=== PATIENT | male | born 1950 | race Asian ===

== ENCOUNTER 2020-10-28 13:23 | Outpatient (REF) | payer OTHER, SELFPAY ==
[2020-10-28 14:31] LABS: Hematocrit 46.4 % (42-52); Hemoglobin 15.5 g/dl (14.0-18.0); Mean Corpuscular HGB Conc 33.4 g/dl (31.0-36.0); Mean Corpuscular Hemoglobin 26.5 pg (27.0-33.0); Mean Corpuscular Volume 79.3 fL (80-98); Mean Platelet Volume 11.2 fL (9.4-12.4); Platelet Count 245 X10*3/uL (160-400); Red Blood Count 5.85 X10*6/uL (4.60-5.80); Red Cell Distribution Width 15.3 % (11.0-16.0)
[2020-10-28 15:02] LABS: Alanine Aminotransferase 20 U/L (0-40); Albumin Level 4.4 g/dL (3.5-5.0); Alkaline Phosphatase 133 U/L (39-117); Anion Gap 11 (12-20); Aspartate Amino Transferase 26 U/L (5-37); Bilirubin Direct 0.3 mg/dL (0.0-0.5); Bilirubin Total 0.6 mg/dL (0.0-1.0); Blood Urea Nitrogen 14 mg/dL (9-16); Calcium 9.2 mg/dL (8.4-10.2); Carbon Dioxide 27 mmol/L (22-29); Chloride 108 mmol/L (96-108); Cholesterol 176 mg/dL; Estimated Glomerular Filt Rate > 60; Glucose Random 85 mg/dL (60-115); HDL Cholesterol 46 mg/dL; LDL Cholesterol Calculated 103 mg/dl; Potassium 4.4 mmol/L (3.3-5.1); Sodium 142 mmol/L (135-145); Total Protein 7.3 g/dL (6.5-8.0); Triglycerides 135 mg/dL
[2020-10-28 15:22] LABS: Thyroid Stimulating Hormone 2.91 uIU/mL (0.32-4.0)
== END 2020-10-28 13:24 | disposition home or self-care (01) ==
LOC: HO.LAB 13:23
PROVIDERS: Visit Provider Internal Medicine
DX: E78.00 Pure hypercholesterolemia, unspecified (principal)
CPT/HCPCS: 36415; 80048; 80061; 80076; 84443; 85027

== ENCOUNTER 2020-11-06 20:50 | Emergency (ER) | payer OTHER, SELFPAY ==
--- NOTE | ~2020-11-06 | CT_ITS ---
EXAMINATION: CT ABDOMEN AND PELVIS WITHOUT CONTRAST CLINICAL INFORMATION: Elevated alkaline phosphatase with history of BPH. COMPARISON: None TECHNIQUE: Multidetector volumetric imaging was performed from the superior aspect of the liver through the pubic symphysis. Sagittal and coronal reformatted images were obtained on the technologist's workstation. This CT examination was performed using dose optimization techniques as appropriate, variously including the following: *Automated exposure control. *Adjustment of mA and/or kV according to patient size (this includes techniques or standardized protocols for targeted exams where dose is matched to indication/reason for exam; i.e. extremities or head). *Use of iterative reconstruction technique. DLP: 639 mGy-cm FINDINGS: LUNG BASES: The visualized lung bases are unremarkable. LIVER, GALLBLADDER, AND BILIARY TREE: The liver is normal in size, shape, and attenuation. No focal hepatic lesion or biliary ductal dilatation is present. The gallbladder contains multiple layering high density stones but is otherwise unremarkable with no evidence of wall thickening or obvious pericholecystic inflammatory changes. PANCREAS: Unremarkable. SPLEEN: Unremarkable. ADRENAL GLANDS: Unremarkable. KIDNEYS AND URETERS: The kidneys are normal in size, shape, and attenuation. No hydronephrosis, hydroureter, or calculi seen. Bilateral water density benign simple renal cysts are noted with the largest at the lower poles measuring about 3 cm in size bilaterally. No perinephric stranding. BLADDER: Unremarkable. GASTROINTESTINAL TRACT: Diverticular changes are present in the colon, most marked in the sigmoid and distal transverse and proximal descending colon, but there is no evidence to suggest the presence of diverticulitis. The distal ileum demonstrates fecalization. The small and large bowel are otherwise unremarkable. The appendix is not identified but there is no evidence to suggest appendicitis. ABDOMINAL WALL: No significant hernia is appreciated. LYMPH NODES: Normal. VASCULAR: Unremarkable. PELVIC VISCERA: Prostate is enlarged measuring 5.6 x 4.0 x 4.6 cm. The seminal vesicles appear normal. OSSEOUS STRUCTURES: Unremarkable. CT/CT abdomen pelvis wo con IMPRESSION: 1. Cholelithiasis without evidence of cholecystitis. 2. Bilateral renal cysts. 3. Colonic diverticulosis without diverticulitis. 4. BPH.
[2020-11-06 20:57] VITALS: BP 157/85; PULSE 68; RESP 16; TEMP 36.4; O2SAT 99; BMI 28.0
[2020-11-06 21:17] LABS: Basophils Percent Auto 0.5 % (0-2); Eosinophils Absolute Auto 0.2 X10*3/uL (0.0-0.4); Eosinophils Percent Auto 2.5 % (0-4); Hematocrit 46.4 % (42-52); Hemoglobin 15.4 g/dl (14.0-18.0); Imm Gran Abs Auto 0.01 X10*3/uL (0.00-0.03); Imm Gran Pct Auto 0.1 % (0.0-0.4); Lymphocytes Absolute Auto 2.5 X10*3/uL (1.2-4.9); Lymphocytes Percent Auto 33.8 % (20-40); MANUAL DIFF FLAG NO; Mean Corpuscular HGB Conc 33.2 g/dl (31.0-36.0); Mean Corpuscular Hemoglobin 26.5 pg (27.0-33.0); Mean Corpuscular Volume 79.9 fL (80-98); Mean Platelet Volume 10.3 fL (9.4-12.4); Monocytes Absolute Auto 0.6 X10*3/uL (0.1-1.2); Monocytes Percent Auto 8.4 % (2-11); Neutrophils Absolute Auto 4.1 X10*3/uL (2.0-8.3); Neutrophils Percent Auto 54.7 % (45-73); Platelet Count 247 X10*3/uL (160-400); Red Blood Count 5.81 X10*6/uL (4.60-5.80); Red Cell Distribution Width 15.2 % (11.0-16.0); White Blood Count 7.5 X10*3/uL (4.8-10.8)
--- NOTE | 2020-11-06 21:40 | ED.ABDPAIN ---
HPI - Abdominal Pain General Chief Complaint: Abdominal Pain Stated Complaint: abdominal pain Time Seen by Provider: 11/06/20 21:00 Source: patient Mode of arrival: ambulatory Limitations: no limitations History of Present Illness HPI narrative: Patient has history of high cholesterol was seen at PCP office last week 10/28 had labs done had routine alkaline phosphatase was slightly elevated to 133 with normal LFT patient complaining of mild discomfort in lower abdomen no nausea vomiting is on weight loss diet with normal bowel movements no nausea no vomiting feeling okay otherwise has history of BPH status post TURP. Patient denied any bony pain Related Data Home Medications Medication Instructions Recorded Confirmed multivitamin 1 tab PO DAILY 10/25/20 10/29/20 Previous Rx's Medication Instructions Recorded ketoconazole 2 % shampoo 1 applic TOPICAL 2XW #120 ml 06/21/20 docusate sodium 100 mg capsule 100 mg PO DAILY PRN #30 cap 08/19/20 atorvastatin 20 mg tablet 20 mg PO DAILY #90 tab 08/30/20 Allergies Allergy/AdvReac Type Severity Reaction Status Date / Time sulfur Allergy Unknown unknown Verified 11/06/20 21:04 Review of Systems Review of Systems Constitutional : No Weight loss, No Fever, No Chills ENT/Mouth : No sore throat, No Rhinorrhea Eyes: No Eye Pain, No Swelling Cardiovascular : No Chest Pain, no palpitations Respiratory : No Cough, No Sputum, no shortness of breath Gastrointestinal : no Nausea, No Vomiting, No Diarrhea, mild abdominal Pain, no black stools Genitourinary : No Dysuria, No Urinary Frequency Musculoskeletal : No joint pain, No Myalgias, No Joint Swelling Skin : No Skin Lesions, No rash Neuro : No Weakness, No Numbness, No Dizziness, No Headache Psych : No Anxiety/Panic, No Depression Heme/Lymph: No Bruising, No Lymphadenopathy Endocrine : No Polyuria, No Polydipsia All other systems reviewed and are negative Physical Exam Vital Signs: Vital Signs: Last Vital Signs Temp 97.6 F 11/06/20 20:57 Pulse 68 11/06/20 20:57 Resp 16 11/06/20 20:57 BP 157/85 H 11/06/20 20:57 Pulse Ox 99 11/06/20 20:57 Body Mass Index 28.0 Appearance: Alert. Oriented X3. No acute distress. Eyes: Pupils equal, round and reactive to light. ENT: Pharynx normal. Neck: Normal inspection. Neck supple. CVS: Normal heart rate and rhythm. Pulses normal. Respiratory: No respiratory distress. Breath sounds normal. Abdomen: Soft and nontender. Bowel sounds are present, no mass palpable, no CVA tenderness Skin: Skin warm and dry. Normal skin color. Normal skin turgor. Extremities: No lower extremity edema. Neuro: Oriented X 3. No motor deficit. No sensory deficit. MDM - Abdominal Pain MDM Narrative Medical decision making narrative: Patient without any significant right upper quadrant pain lab workup showed slightly elevated alkaline phosphatase CT scan was done which showed gallstones without any fluid collection or cholecystitis. Patient advised to follow with GI/surgery for further workup Differential Diagnosis Differential diagnosis: Likely abdominal pain Medical Records Attestation: I reviewed the patient's medical records. Lab Data Attestation: I reviewed the patient's lab results. Result diagrams: 11/06/20 21:12 11/06/20 21:12 Labs: Lab Results 11/06/20 11/06/20 11/06/20 Range/Units 21:12 21:12 21:12 WBC 7.5 (4.8-10.8) X10*3/uL RBC 5.81 H (4.60-5.80) X10*6/uL Hgb 15.4 (14.0-18.0) g/dl Hct 46.4 (42-52) % MCV 79.9 L (80-98) fL MCH 26.5 L (27.0-33.0) pg MCHC 33.2 (31.0-36.0) g/dl RDW 15.2 (11.0-16.0) % Plt Count 247 (160-400) X10*3/uL MPV 10.3 (9.4-12.4) fL Immature Gran % (Auto) 0.1 (0.0-0.4) % Neut % (Auto) 54.7 (45-73) % Lymph % (Auto) 33.8 (20-40) % [place] % (Auto) 8.4 (2-11) % Eos % (Auto) 2.5 (0-4) % Baso % (Auto) 0.5 (0-2) % Lymph # (Auto) 2.5 (1.2-4.9) X10*3/uL [place] # (Auto) 0.6 (0.1-1.2) X10*3/uL Eos # (Auto) 0.2 (0.0-0.4) X10*3/uL Baso # (Auto) 0.0 (0.0-0.2) X10*3/uL Abs Immat Gran (auto) 0.01 (0.00-0.03) X10*3/uL Absolute Neuts (auto) 4.1 (2.0-8.3) X10*3/uL Absolute Nucleated RBC 0.000 (0.0-0.012) X10*3/uL Nucleated RBC % (auto) 0.0 (0.0-0.2) /100WBC Sodium 141 (135-145) mmol/L Potassium 4.2 (3.3-5.1) mmol/L Chloride 107 (96-108) mmol/L Carbon Dioxide 25 (22-29) mmol/L Anion Gap 13 (12-20) BUN 13 (9-16) mg/dL Creatinine 0.86 (0.5-1.4) mg/dL Estim Creat Clear Calc 90.9 Estimated GFR > 60 Random Glucose 94 (60-115) mg/dL Calcium 9.1 (8.4-10.2) mg/dL Total Bilirubin 0.7 (0.0-1.0) mg/dL Direct Bilirubin 0.2 (0.0-0.5) mg/dL GGT 22 (11-51) U/L AST 29 (5-37) U/L ALT 24 (0-40) U/L Alkaline Phosphatase 142 H (39-117) U/L Total Protein 7.6 (6.5-8.0) g/dL Albumin 4.5 (3.5-5.0) g/dL Lipase 31 (8-78) U/L Carcinoembryonic Ag 2.80 mg/mL Prostate Specific Ag 0.92 (<0.05-4.0) ng/mL Imaging Data CT scan - abdomen: Attestation: I personally reviewed and interpreted this imaging study as follows: Radiologist's impression: rdering Physician: Larry Bashir MD Date of Service: 11/06/20 Procedure(s): CT abdomen pelvis wo con Accession Number(s): [id number] cc: Larry Bashir MD~ EXAMINATION: CT ABDOMEN AND PELVIS WITHOUT CONTRAST CLINICAL INFORMATION: Elevated alkaline phosphatase with history of BPH. COMPARISON: None TECHNIQUE: Multidetector volumetric imaging was performed from the superior aspect of the liver through the pubic symphysis. Sagittal and coronal reformatted images were obtained on the technologist's workstation. This CT examination was performed using dose optimization techniques as appropriate, variously including the following: *Automated exposure control. *Adjustment of mA and/or kV according to patient size (this includes techniques or standardized protocols for targeted exams where dose is matched to indication/reason for exam; i.e. extremities or head). *Use of iterative reconstruction technique. DLP: 639 mGy-cm FINDINGS: LUNG BASES: The visualized lung bases are unremarkable. LIVER, GALLBLADDER, AND BILIARY TREE: The liver is normal in size, shape, and attenuation. No focal hepatic lesion or biliary ductal dilatation is present. The gallbladder contains multiple layering high density stones but is otherwise unremarkable with no evidence of wall thickening or obvious pericholecystic inflammatory changes. PANCREAS: Unremarkable. SPLEEN: Unremarkable. ADRENAL GLANDS: Unremarkable. KIDNEYS AND URETERS: The kidneys are normal in size, shape, and attenuation. No hydronephrosis, hydroureter, or calculi seen. Bilateral water density benign simple renal cysts are noted with the largest at the lower poles measuring about 3 cm in size bilaterally. No perinephric stranding. BLADDER: Unremarkable. GASTROINTESTINAL TRACT: Diverticular changes are present in the colon, most marked in the sigmoid and distal transverse and proximal descending colon, but there is no evidence to suggest the presence of diverticulitis. The distal ileum demonstrates fecalization. The small and large bowel are otherwise unremarkable. The appendix is not identified but there is no evidence to suggest appendicitis. ABDOMINAL WALL: No significant hernia is appreciated. LYMPH NODES: Normal. VASCULAR: Unremarkable. PELVIC VISCERA: Prostate is enlarged measuring 5.6 x 4.0 x 4.6 cm. The seminal vesicles appear normal. OSSEOUS STRUCTURES: Unremarkable. CT/CT abdomen pelvis wo con IMPRESSION: 1. Cholelithiasis without evidence of cholecystitis. 2. Bilateral renal cysts. 3. Colonic diverticulosis without diverticulitis. 4. BPH. Discharge Plan Discharge Clinical Impression: Gallstone Qualifiers: Cholecystitis presence: without cholecystitis Biliary obstruction: without biliary obstruction Qualified Code(s): K80.20 - Calculus of gallbladder without cholecystitis without obstruction Patient Disposition: Home, Self-Care Instructions: Gallstones (ED) Additional Instructions: Avoid greasy food follow-up with a manager product/surgeon report to the ER if pain in the right upper quadrant Prescriptions: No Action ketoconazole 2 % shampoo 1 applic topical 2XW Qty: 120 RF: 1 docusate sodium 100 mg capsule 100 mg PO DAILY PRN (Reason: constipation) Qty: 30 RF: 2 atorvastatin 20 mg tablet 20 mg PO DAILY Qty: 90 RF: 0 multivitamin [Daily Multi-Vitamin] Tablet 1 tab PO DAILY RF: 0 Referrals: Dionicio Hermosillo MD [Physician] - 1 week Interventions: ED Discharge Assessment Last Done: 11/06/20 23:26 Discharge Date/Time: 11/06/20 23:27 [facility] Past Medical History Medical History Constipation H/O angiography Hypercholesterolemia Seborrhea capitis Surgical History History of appendectomy Family History Family History Father No problems noted. Mother No problems noted. Social History Social History Alcohol intake: never Smoking Status: Never smoker Advance Directives: No
[2020-11-06 21:45] LABS: Alanine Aminotransferase 24 U/L (0-40); Albumin Level 4.5 g/dL (3.5-5.0); Alkaline Phosphatase 142 U/L (39-117); Anion Gap 13 (12-20); Aspartate Amino Transferase 29 U/L (5-37); Bilirubin Direct 0.2 mg/dL (0.0-0.5); Bilirubin Total 0.7 mg/dL (0.0-1.0); Blood Urea Nitrogen 13 mg/dL (9-16); Calcium 9.1 mg/dL (8.4-10.2); Carbon Dioxide 25 mmol/L (22-29); Chloride 107 mmol/L (96-108); Creatinine Clr Calc Pharmacy 90.9; Estimated Glomerular Filt Rate > 60; Gamma Glutamyl Transpeptidase 22 U/L (11-51); Glucose Random 94 mg/dL (60-115); Lipase 31 U/L (8-78); Potassium 4.2 mmol/L (3.3-5.1); Sodium 141 mmol/L (135-145); Total Protein 7.6 g/dL (6.5-8.0)
[2020-11-06 22:04] LABS: Prostate Specific Antigen 0.92 ng/mL (<0.05-4.0)
--- NOTE | 2020-11-06 22:21 | PC.NURSE ---
Pt ambulating to CT at this time.
--- NOTE | 2020-11-06 22:29 | PC.NURSE ---
Pt returns from CT, awaiting results in car with son.
[2020-11-07 03:25] LABS: HBc Num1 1.06 S/CO (0.00-0.79); HBsAGNum1 0.22 S/CO (0.00-0.99); Hepatitis B Surface Antigen Negative (Negative); ~HepC Num1 0.27 S/CO (0.00-0.79); ~Hepatitis B Surface Antibody REACTIVE (Nonreactive); ~Hepatitis C Antibody Nonreactive (Nonreactive)
[2020-11-07 04:42] LABS: HBc Num3 1.07 S/CO; Hepatitis B Core Antibody Reactive (Nonreactive)
[2020-11-08 09:32] LABS: Hepatitis B Core Antibody IgM NON-REACTIVE (NON-REACTIVE)
== END 2020-11-06 23:27 | disposition home or self-care (01) ==
LOC: HO.ED 23:24
PROVIDERS: Emergency Provider Internal Medicine
DX: K80.20 Calculus of gallbladder without cholecystitis without obstruction (principal)
CPT/HCPCS: 36415; 74176; 80048; 80076; 82378; 82977; 83690; 84153; 85025; 86704; 86705; 86706; 86803; 87340; 99283; 99284

== ENCOUNTER → 2020-11-08 13:07 | Outpatient (BNVA) | payer OTHER, SELFPAY | PROVIDERS: Visit Provider Internal Medicine Gastroenterology | DX: K80.20 Calculus of gallbladder without cholecystitis without obstruction (principal) | CPT/HCPCS: 99202 ==

== ENCOUNTER 2020-11-16 12:37 | Day surgery (SDC) | payer OTHER, SELFPAY ==
--- NOTE | 2020-11-15 09:50 | HO.ANESPROP2 ---
Documented by User: Gloria Lozoya 11/15/20 09:51 HPI - Anesthesia Eval Consult details Narrative: 70yo M for Upper Endoscopy and Colonoscopy PMFSH Active Problems Active Problems: All Active Problems (Updated 11/08/20 @ 14:08 by Dionicio Hermosillo MD) Microcytosis (Acute) Gallstone (Acute) Hypercholesterolemia (Acute) Seborrhea capitis (Acute) Constipation (Acute) Past Medical History Medical History Constipation H/O angiography Hypercholesterolemia Seborrhea capitis Family History Family History Father No problems noted. Mother No problems noted. Surgical History Surgical History History of appendectomy History of prostatectomy Social History Social History Household Members: Spouse and Children Alcohol intake: current Alcohol intake frequency: does not drink Smoking Status: Never smoker Use of substances other than those prescribed or required for medical reasons: No Advance Directives: No Advance Directives Information Provided: Yes Meds Allergies Allergy/AdvReac Type Severity Reaction Status Date / Time Sulfa (Sulfonamide Allergy Itching Verified 11/16/20 12:48 Antibiotics) Home Medications Medication Instructions Recorded Confirmed Last Taken Type multivitamin 1 tab PO DAILY 10/25/20 11/08/20 Unknown History Exam Exam Date and Time: November 15, 2020 0950 Pertinent Lab Results Pertinent Lab Results: Laboratory Tests 11/06/20 11/06/20 21:12 21:12 WBC 7.5 Hgb 15.4 Hct 46.4 Plt Count 247 Sodium 141 Potassium 4.2 Chloride 107 Carbon Dioxide 25 BUN 13 Creatinine 0.86 Assessment and Plan Assessment Anesthesia Assessment: Chart Reviewed Documented by User: Tish Lewis 11/16/20 13:40 PMFSH Past Medical History Medical History Constipation H/O angiography Hypercholesterolemia Seborrhea capitis Family History Family History Father No problems noted. Mother No problems noted. Surgical History Surgical History History of appendectomy History of prostatectomy Social History Social History Household Members: Spouse and Children Alcohol intake: current Alcohol intake frequency: does not drink Smoking Status: Never smoker Use of substances other than those prescribed or required for medical reasons: No Advance Directives: No Advance Directives Information Provided: Yes Meds Allergies Allergy/AdvReac Type Severity Reaction Status Date / Time Sulfa (Sulfonamide Allergy Itching Verified 11/16/20 12:48 Antibiotics) Home Medications Medication Instructions Recorded Confirmed Last Taken Type multivitamin 1 tab PO DAILY 10/25/20 11/08/20 Unknown History Exam Airway Mallampati Class: III TM Dist: >3cm Neck ROM: Full Heart: RRR Lungs: CTA Assessment and Plan Assessment Anesthesia Assessment: Anesthesia Plan Discussed and Chart Reviewed Final Anesthetic Review NPO: Yes ASA Class: II Final Preanesthetic Review: Meds/Allgs Chart Reviewed, Consent Obtained/Reviewed and Anes Risks/Benef Reviewed Patient Risk: Low Procedure Risk: Intermediate Anesthetic Plan Anesthetic Plan: MAC: Disposition: Standard PACU
[2020-11-16 12:49] VITALS: BMI 28.1
[2020-11-16 13:04] VITALS: BP 142/86; PULSE 68; RESP 16; TEMP 36.8; O2SAT 99
[2020-11-16] MEDS: Lactated Ringers 1,000 ML 100 ML IVCONT (13:21)
--- NOTE | 2020-11-16 13:50 | MHC.SHP ---
Pre-Procedural Eval Section A The patient is an INPATIENT: No The History & Physical has been completed within 30 days and I have reviewed it.: Yes Section B Chief Complaint: epigastric Allergies: Allergies Allergy/AdvReac Type Severity Reaction Status Date / Time Sulfa (Sulfonamide Allergy Itching Verified 11/16/20 12:48 Antibiotics) Plan I have reviewed the history and physical and performed a pertinent physical examination on my patient. No changes have occurred unless specified.
--- NOTE | 2020-11-16 13:51 | PM.OP ---
Brief Operative Note Date of Service: 11/16/20 Pre-op diagnosis: abdo pain and screening colonoscopy Post-op diagnosis: same Procedure: see op note Surgeon: Dionicio Hermosillo MD Anesthesia: MAC Estimated blood loss (mL): 0 Condition: stable Disposition: PACU
--- NOTE | 2020-11-16 14:25 | W.PM.OPN ---
Operative Note Operative Note Date of Service: 11/16/20 Narrative: Operative Information Procedure Description: EGD, Colonoscopy FLEXIBLE TRANSORAL UPPER GASTROINTESTINAL ENDOSCOPY AND COLONOSCOPY PROCEDURE NOTE UPPER ENDOSCOPY Consent: Indications for the procedure and potential complications of bleeding, perforation, reaction to medications and missed diagnosis were discussed with the patient and informed consent was obtained. Instrument: Olympus GIF H 190 J mid size upper endoscope Monitoring: Vital signs and clinical assessment, continuous EKG monitoring, Pulse oximetry, Carbon Dioxide monitoring and blood pressure monitoring were done throughout the procedure. Procedure: The patient was placed in the left lateral decubitis position and pre-procedure medications were administered and a bite block was placed. The endoscope was inserted into the mouth and advanced under direct vision to the third part of duodenum. A careful inspection was made as the upper endoscope was withdrawn including a retroflexed examination of the proximal stomach; Findings and interventions are described below. Findings: Larynx:normal Esophagus: GE junction at 40 cm, diaphragm hiatus at 40 cm, esophagitis LA grade A at GEJ, bx taken. Esophagus appeared granular and slightly inflammed, random esophagus bx taken Stomach:Patchy gastritis. Biopsies were obtained. Grade 2 flap valve on retroflexed examination of the cardia. Duodenum: duodenitis, moderate extending from bulb to proximal portion of second part of duodenum, bx taken Intervention: Biopsies as noted above COLONOSCOPY Instrument: Olympus variable stiffness pediatric scope 190L Colonoscopy Monitoring: Vital signs and clinical assessment, continuous EKG monitoring, Pulse oximetry, Carbon Dioxide monitoring and blood pressure monitoring were done throughout the procedure. Colon withdrawal time was 16 minutes. Procedure: The patient was placed in the left lateral decubitis position and pre-procedure medications were administered. After a digital rectal examination of the ano-rectum, the video colonoscope was inserted into the rectum and advanced through the colon to the cecum/TI. The colonoscope was slowly withdrawn in a retrograde panoramic fashion and the colon mucosa was carefully examined including a retroflexed view of the rectum. Findings and interventions are described below. Procedure Difficulty:easy Findings: Terminal Ileum-normal Cecum:normal Ascending Colon: 6-8 mm sessile polyp removed with forceps otherwise normal mucosa Transverse Colon -normal Descending Colon:moderate severe diverticulosis Sigmoid Colon: moderate severe diverticulosis Rectum: Retroflexion with small internal hemorrhoids, grade I Anorectum - normal Colon preparation: [place] Bowel Preparation Scale Right colon; 2 Transverse colon: 2 Left colon; 2 (0 = Unprepared colon segment with mucosa not seen due to solid stool that cannot be cleared. 1 = Portion of mucosa of the colon segment seen, but other areas of the colon segment not well seen due to staining, residual stool and/or opaque liquid. 2 = Minor amount of residual staining, small fragments of stool and/or opaque liquid, but mucosa of colon segment seen well. 3 = Entire mucosa of colon segment seen well with no residual staining, small fragments of stool or opaque liquid) Impression and Post Procedure Diagnosis: Endoscopy Findings: gastritis duodenitis esophagitis Colonoscopy Findings: polyp internal hemorrhoids diverticular disease Plan: Await Pathology results Repeat Colonoscopy in 5 years or earlier if clinically indicated High fiber diet leaflet avoid straining at stool, epsom salts and sitz bath, anusol supps or cream as needed trial of PPI, reflux precautions Above findings were reviewed with the patient and relevant handouts were provided if indicated.
[2020-11-16 14:55] VITALS: BP 117/74; PULSE 70; RESP 12; TEMP 36.1; O2SAT 96
[2020-11-16 15:10] VITALS: BP 112/75; PULSE 65; RESP 20; O2SAT 98
== END 2020-11-16 15:47 | disposition home or self-care (01) ==
PROVIDERS: Visit Provider Internal Medicine Gastroenterology
PROC: (CPT 45380; principal; 2020-11-16 13:50)
DX: Z12.11 Encounter for screening for malignant neoplasm of colon (principal); D12.0 Benign neoplasm of cecum; K57.30 Diverticulosis of large intestine without perforation or abscess without bleeding; K64.0 First degree hemorrhoids; K59.00 Constipation, unspecified; K20.80 Other esophagitis without bleeding; K29.50 Unspecified chronic gastritis without bleeding; K44.9 Diaphragmatic hernia without obstruction or gangrene; B96.81 Helicobacter pylori [H. pylori] as the cause of diseases classified elsewhere; K29.80 Duodenitis without bleeding; Z79.899 Other long term (current) drug therapy
CPT/HCPCS: 45380; 43239; 88305; 88312; 88342

== ENCOUNTER → 2020-11-25 11:07 | Outpatient (BNVA) | payer OTHER, SELFPAY | PROVIDERS: PCP Internal Medicine; Visit Provider Surgery | DX: K80.20 Calculus of gallbladder without cholecystitis without obstruction (principal); K80.50 Calculus of bile duct without cholangitis or cholecystitis without obstruction | CPT/HCPCS: 99202 ==

== ENCOUNTER 2020-11-30 12:56 | Outpatient (REF) | payer OTHER, SELFPAY ==
--- NOTE | ~2020-11-30 | US_ITS ---
EXAMINATION: US ABDOMEN COMPLETE CLINICAL INFORMATION: Calculus without obstruction. COMPARISON: None TECHNIQUE: Real-time imaging of the abdominal viscera. FINDINGS: PANCREAS: Normal. ABDOMINAL AORTA: The proximal, mid, and distal segments are normal in caliber. INFERIOR VENA CAVA: Visualized portions are normal. LIVER: The liver is normal in size. The liver contour is normal. Liver is diffusely echogenic. Parenchymal echogenicity is normal. No focal hepatic lesion. There is no intrahepatic biliary duct dilatation seen. There is normal hepatopedal flow seen in the portal vein on Doppler exam. GALLBLADDER: The gallbladder is physiologically distended. Multiple mobile gallstones are present. No evidence of gallbladder wall thickening or pericholecystic fluid. No wall thickening seen. COMMON BILE DUCT: Normal in caliber measuring 0.42 cm in diameter. RIGHT KIDNEY: There are several cysts visualized. A midpole cyst measures 1.9 x 1.5 x 1.6 cm. A second midpole cyst measures 1.4 x 1.2 x 1.3 cm. A lower pole cyst measures 3.8 x 2.7 x 2.7 cm and a second lower pole cyst measures 1.0 x 1.0 x 0.8 cm. No hydronephrosis. No renal calculi or focal parenchymal lesions. The kidney measures 10.6 cm in maximum dimension. LEFT KIDNEY: There are at least 3 anechoic cysts seen. 1. A lower pole exophytic cyst measures 2.9 x 2.5 x 2.4 cm. 2. A lower pole cyst measures 1.4 x 1.3 x 1.3 cm. 3. Upper pole cyst measures 0.7 x 0.8 x 0.8 cm. No hydronephrosis. No renal calculi or focal parenchymal lesions. The kidney measures 10.6 cm in maximum dimension. SPLEEN: Normal. The spleen measures 9.7 cm in maximum dimension. FREE FLUID: None. US/US abdomen complete IMPRESSION: Bilateral renal cysts with no echogenic stones seen. Cholelithiasis without wall thickening. Diffuse hepatic steatosis. No focal lesion seen.
== END 2020-11-30 12:57 | disposition home or self-care (01) ==
LOC: HO.US 12:56
PROVIDERS: Visit Provider Internal Medicine Gastroenterology
DX: K80.20 Calculus of gallbladder without cholecystitis without obstruction (principal)
CPT/HCPCS: 76700

== ENCOUNTER 2020-12-06 23:13 | Outpatient (REF) | payer OTHER, SELFPAY ==
[2020-12-07 00:55] LABS: Influenza A PCR NEGATIVE (Negative); Influenza B PCR NEGATIVE (Negative); Resp Syncy Virus RNA Qual PCR NEGATIVE (Negative); SARS COV2 PCR INHOUSE NEGATIVE (Negative)
== END 2020-12-06 23:14 | disposition home or self-care (01) ==
LOC: HO.LAB 23:13
PROVIDERS: Visit Provider Internal Medicine
DX: Z20.822 Contact with and (suspected) exposure to COVID-19 (principal)
CPT/HCPCS: 0241U; 36415

== ENCOUNTER → 2021-03-27 08:35 | Outpatient (BNVA) | payer OTHER, SELFPAY | PROVIDERS: PCP Internal Medicine; Visit Provider Internal Medicine Gastroenterology ==

== ENCOUNTER 2022-09-28 21:25 | Emergency (ER) | payer OTHER, SELFPAY ==
--- NOTE | 2022-09-28 | ECG_ITS ---
Test Reason : CHEST PAIN Blood Pressure : / mmHG Vent. Rate : 073 BPM Atrial Rate : 073 BPM P-R Int : 148 ms QRS Dur : 100 ms QT Int : 402 ms P-R-T Axes : 059 069 074 degrees QTc Int : 442 ms Normal sinus rhythm Normal ECG No previous ECGs available Referred By: Aishwarya Benito Electronically Signed By:Matteo Munroe
--- NOTE | ~2022-09-28 | CT_ITS ---
EXAMINATION: CT ANGIOGRAM OF THE CHEST WITH AND WITHOUT CONTRAST (CT PULMONARY ANGIOGRAM FOR PE) CLINICAL INFORMATION: Reason for Exam left sided chest wall pain COMPARISON: None TECHNIQUE: Prior to contrast administration, noncontrast localization images were obtained. Subsequently, multidetector volumetric imaging was performed from the thoracic inlet to below the diaphragms following the administration of 65 mL Omnipaque 350 intravenous contrast. No contrast reaction reported Sagittal, coronal, and MIP oblique sagittal reformatted images were obtained on the CT workstation, uploaded to PACS, and reviewed. This CT examination was performed using dose optimization techniques as appropriate, variously including the following: *Automated exposure control *Adjustment of mA and/or kV according to patient size (this includes techniques or standardized protocols for targeted exams where dose is matched to indication/reason for exam; i.e. extremities or head) *Use of iterative reconstruction technique Total exam dose-length product 320 mGy-cm FINDINGS: QUALITY OF STUDY/CONTRAST BOLUS: Satisfactory. PULMONARY ARTERIES: No central or segmental pulmonary emboli. THORACIC AORTA: No aneurysm or dissection. LUNG: No focal consolidation, nodules or masses. The central airways are patent. PLEURA: No pleural effusion or pneumothorax. MEDIASTINUM: Normal heart size. No pericardial effusion. No hilar or mediastinal lymphadenopathy. No evidence of septal bowing or right heart strain. CORONARY ARTERY CALCIFICATION: None visualized on this study. CHEST WALL/AXILLA: No axillary or internal mammary lymphadenopathy. OSSEOUS STRUCTURES: No acute or suspicious osseous abnormality. Mild degenerative changes throughout the spine. UPPER ABDOMEN: Unremarkable. No reflux of contrast into the hepatic veins to suggest elevated right heart pressures. CT/CT angio chest PE protocol IMPRESSION: No pulmonary embolism or other acute intrathoracic abnormality. VTE: negative
--- NOTE | ~2022-09-28 | US_ITS ---
EXAMINATION: US VENOUS ULTRASOUND WITH DOPPLER LOWER EXTREMITY, LEFT CLINICAL INFORMATION: Pain. COMPARISON: None TECHNIQUE: Ultrasound of the deep veins is performed from the hip to the calf with compression sonography and color and pulse Doppler assessment. Spectral analysis with color-flow imaging is performed. FINDINGS: There is normal venous compression and respiratory variation and augmented flow. The visualized common femoral vein, superficial femoral vein, profunda femoral vein, popliteal vein, and the trifurcation region shows no evidence of deep venous thrombosis. There is no significant popliteal fossa cyst. If the patient's symptoms persist, followup ultrasound in 5 days 7 days might be of value to exclude proximal propagation from a non-visualized calf vein. US/US venous duplex LE LT IMPRESSION: No DVT demonstrated in the left lower extremity.
[2022-09-28 21:26] VITALS: BP 147/87; PULSE 83; RESP 16; TEMP 36.2; O2SAT 95; BMI 29.8
--- NOTE | 2022-09-28 21:45 | MHC.EDTECH ---
this pct assumed care of patient at 2145 ,ekg done ,vitals sign ,blood drawn ,patient was hooked up to cardiac sonographer ,patient son at bedside ,ultra sound and patient son at bedside,call fa[facility]ner withing reach .
--- NOTE | 2022-09-28 21:51 | ED_ITS ---
HPI - Chest Pain General Chief Complaint: Chest Pain Stated Complaint: spoke to Anwar, cousin Time Seen by Provider: 09/28/22 21:29 History of Present Illness HPI narrative: Patient is a 71-year-old male with a history of high cholesterol question history of angina back in the 90s. Patient complaining of left-sided chest pain. The chest pain occurred only after hitting his chest against a metal nisha. No pain prior. The pain is very sharp it is positional. Not associated with any shortness of breath or diaphoresis. Patient recently flew back from [place]. Complaining of pain localized to that area. Patient claims that with certain positional movements the pain gets worse. Patient denies any fever chills coughing congestion upper respiratory symptoms. He is from home. Patient also complaining of some questionable numbness to the left pinky and 4th toe. Patient has no difficulty ambulating. No bowel urinary incontinence. No leg cramps. No leg swelling. Related Data Previous Rx's Medication Instructions Recorded atorvastatin 20 mg tablet 20 mg PO DAILY #90 tabs 12/07/20 ketoconazole 2 % shampoo 2 appl topical 2XW #120 mL 12/07/20 docusate sodium 100 mg capsule 100 mg PO DAILY PRN constipation 04/03/21 #30 caps multivitamin (Daily Multi-Vitamin 1 tab PO DAILY #90 tabs 04/03/21 tablet) cholecalciferol (vitamin D3) 1,250 1,250 mcg PO QWEEK #14 caps 06/27/21 mcg (50,000 unit) capsule ursodiol 500 mg tablet 500 mg PO BID 3 months #180 tabs 02/06/22 Allergies Allergy/AdvReac Type Severity Reaction Status Date / Time Sulfa (Sulfonamide Allergy Itching Verified 04/03/21 16:13 Antibiotics) Review of Systems Review of Systems: No fever no chills no cough no congestion positive chest pain on the left side Yes all other systems are reviewed and are negative PMFSH Past Medical History Attestation statement: The following information was validated with the patient. Medical History Constipation H/O angiography Hypercholesterolemia Seborrhea capitis Surgical History H/O colonoscopy History of appendectomy History of esophagogastroduodenoscopy (EGD) History of prostatectomy Family History Family History Father No problems noted. Mother No problems noted. Social History Social History Household Members: Spouse and Children Housing: House Alcohol intake: never Patient Tobacco Use Status: Never used Tobacco e-Cigarette/Vaping Use: Never Used Second Hand Smoke Exposure: No Advance Directives: No Advance Directives Information Provided: Yes service: No Current occupational status: retired Physical Exam Vital Signs: Vital Signs: Last Vital Signs Temp 97.8 F 09/28/22 21:55 Pulse 71 09/28/22 21:55 Resp 16 09/28/22 21:55 BP 134/81 09/28/22 21:55 Pulse Ox 96 09/28/22 21:55 O2 Del Method 09/28/22 21:55 BMI result Body Mass Index 29.8 Appearance: Alert. Oriented X3. No acute distress. Eyes: Pupils equal, round and reactive to light. ENT: Pharynx normal. Neck: Normal inspection. Neck supple. No lymph nodes noted. No crepitus CVS: Normal heart rate and rhythm. Pulses normal. Normal S1 and S2 Respiratory: No respiratory distress. Breath sounds normal. No Wheezing. No rales Abdomen: Soft and nontender. No rigidity. No distention. good BS x4 Skin: Skin warm and dry. Normal skin color. Normal skin turgor. Extremities: No lower extremity edema. Neurovascular intact to all extremities. No Lacerations. No Rash Neuro: Oriented X 3. No motor deficit. No sensory deficit. Moving all extermities. No slurred speech Medications Administered Discontinued Medications Generic Name Dose Route Start Last Admin Trade Name Freq PRN Reason Stop Dose Admin Iohexol 100 ml 09/28/22 22:54 09/28/22 22:54 Iohexol 350 Mg/Ml 100 Ml Infus..Btl IV 09/28/22 22:55 65 ml ONCE ONE Administration Medical Decision Making Differential Diagnosis Sciatica for the leg pain. DVT, PE, chest wall contusion, rib fracture, pneumothorax, ACS. Patient's chest pain atypical for ACS. He does have multiple risk factor he is 71 years old. 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 Patient will get a CTA of the chest to rule out the possibility of PE. A Doppler of the lower extremity also ordered for possible DVT. As patient recently flew back from [place]. He is in no distress. CTA of the chest was grossly negative for any acute evidence of rib fracture, PE, pneumonia patient well-appearing. No distress. O2 sat is normal. Doppler of the lower extremities negative for DVT. Patient is in stable condition. Will discharge home Lab Data MDM Lab Attestation statement: I reviewed the patient's lab results. Troponin was negative. 09/28/22 22:01 09/28/22 22:01 Labs: Lab Results 09/28/22 09/28/22 09/28/22 Range/Units 22:01 22:01 22:01 WBC 9.6 (4.8-10.8) X10*3/uL RBC 5.86 H (4.60-5.80) X10*6/uL Hgb 15.4 (14.0-18.0) g/dl Hct 46.2 (42.0-52.0) % MCV 78.8 L (80.0-98.0) fL MCH 26.3 L (27.0-33.0) pg MCHC 33.3 (31.0-36.0) g/dl RDW 14.9 (11.0-16.0) % Plt Count 311 (160-400) X10*3/uL MPV 9.5 (9.4-12.4) fL Immature Gran % (Auto) 0.3 (0.0-0.4) % Neut % (Auto) 63.5 (45-73) % Lymph % (Auto) 28.6 (20-40) % Wharton % (Auto) 5.0 (2-11) % Eos % (Auto) 2.2 (0-4) % Baso % (Auto) 0.4 (0-2) % Lymph # (Auto) 2.7 (1.2-4.9) X10*3/uL Wharton # (Auto) 0.5 (0.1-1.2) X10*3/uL Eos # (Auto) 0.2 (0.0-0.4) X10*3/uL Baso # (Auto) 0.0 (0.0-0.2) X10*3/uL Abs Immat Gran (auto) 0.03 (0.00-0.03) X10*3/uL Absolute Neuts (auto) 6.1 (2.0-8.3) x10*3/uL Absolute Nucleated RBC 0.000 (0.0-0.012) X10*3/uL Nucleated RBC % (auto) 0.0 (0.0-0.2) /100WBC Sodium 139 (135-145) mmol/L Potassium 3.8 (3.3-5.1) mmol/L Chloride 106 (96-108) mmol/L Carbon Dioxide 23 (22-29) mmol/L Anion Gap 14 (12-20) BUN 16 (9-16) mg/dL Creatinine 1.03 (0.5-1.4) mg/dL Estim Creat Clear Calc 75.8 Estimated GFR > 60 Random Glucose 201 H (60-115) mg/dL Calcium 9.3 (8.4-10.2) mg/dL Troponin I High Sens 4.0 (<3.5-35.0) ng/L Independent Interpretation I performed an independent interpretation of an: EKG Interpretation: Sinus heart rate is 70 SD QRS QT within normal limits as no acute ST segment elevation Independent Historian Clinical information obtained from an independent historian. History obtained from or confirmed by: Other Son External Record Review External record reviewed: Inpatient record Chronic Conditions Patient?s care impacted by: Diabetes High cholesterol Scores Heart Score History: -0- slightly suspicious ECG: -0- normal Age: -2- > or = 65 Risk factory: -1- 1 or 2 risk factors Troponin: -0- < or = normal limit Score: 3 Risk: 1.7% Discharge Plan Discharge Clinical Impression: Chest wall contusion Patient Disposition: Home, Self-Care Instructions: Rib Contusion (ED), Chest Pain (ED) Prescriptions: No Action atorvastatin 20 mg tablet 20 mg PO DAILY Qty: 90 0RF ketoconazole 2 % shampoo 2 appl topical 2XW Qty: 120 1RF cholecalciferol (vitamin D3) 1,250 mcg (50,000 unit) capsule 1,250 mcg PO QWEEK Qty: 14 0RF ursodiol 500 mg tablet 500 mg PO BID 90 Days Qty: 180 3RF multivitamin [Daily Multi-Vitamin] Tablet 1 tab PO DAILY Qty: 90 1RF docusate sodium 100 mg capsule 100 mg PO DAILY PRN (Reason: constipation) Qty: 30 2RF Referrals: Omari Taylor MD [Primary Care Provider] -
[2022-09-28 21:55] VITALS: BP 134/81; PULSE 71; RESP 16; TEMP 36.6; O2SAT 96
[2022-09-28 22:07] LABS: MANUAL DIFF FLAG NO
[2022-09-28 22:08] LABS: Basophils Percent Auto 0.4 % (0-2); Eosinophils Absolute Auto 0.2 X10*3/uL (0.0-0.4); Eosinophils Percent Auto 2.2 % (0-4); Hematocrit 46.2 % (42.0-52.0); Hemoglobin 15.4 g/dl (14.0-18.0); Imm Gran Abs Auto 0.03 X10*3/uL (0.00-0.03); Imm Gran Pct Auto 0.3 % (0.0-0.4); Lymphocytes Absolute Auto 2.7 X10*3/uL (1.2-4.9); Lymphocytes Percent Auto 28.6 % (20-40); Mean Corpuscular HGB Conc 33.3 g/dl (31.0-36.0); Mean Corpuscular Hemoglobin 26.3 pg (27.0-33.0); Mean Corpuscular Volume 78.8 fL (80.0-98.0); Mean Platelet Volume 9.5 fL (9.4-12.4); Monocytes Absolute Auto 0.5 X10*3/uL (0.1-1.2); Neutrophils Absolute Auto 6.1 x10*3/uL (2.0-8.3); Neutrophils Percent Auto 63.5 % (45-73); Platelet Count 311 X10*3/uL (160-400); Red Blood Count 5.86 X10*6/uL (4.60-5.80); Red Cell Distribution Width 14.9 % (11.0-16.0); White Blood Count 9.6 X10*3/uL (4.8-10.8)
[2022-09-28 22:22] LABS: Anion Gap 14 (12-20); Blood Urea Nitrogen 16 mg/dL (9-16); Calcium 9.3 mg/dL (8.4-10.2); Carbon Dioxide 23 mmol/L (22-29); Chloride 106 mmol/L (96-108); Creatinine Clr Calc Pharmacy 75.8; Estimated Glomerular Filt Rate > 60; Glucose Random 201 mg/dL (60-115); Potassium 3.8 mmol/L (3.3-5.1); Sodium 139 mmol/L (135-145)
[2022-09-28] MEDS: iohexoL 350 MG/ML 100 ML INFUS..BTL IV (22:54)
--- OUTSIDE RECORDS SUMMARY | 2022-09-28 23:23 | XMS_ITS ---
:1950 Author Care Team Providers Name Role Phone KRYSTAL OATES Primary Care Provider [phone] Allergies Code Code System Name Reaction Severity Status Onset Sulfa (Sulfonamide Antibiotics) ? ? Active ? Medications Name Status Start Date Stop Date ? ? aspirin 81 mg chewable tablet Active ? No t available TAKE 1 TABLET BY MOUTH EVERY DAY atorvastatin 20 mg tablet Active ? Not av ailable TAKE 1 TABLET BY MOUTH EVERY DAY cholecalciferol (vitamin D3) 1,250 mcg (50,000 unit) capsule Act ant ? Not available TAKE 1 CAPSULE EVERY WEEK Daily-Carissa tablet Active ? Not available TAKE 1 TABLET BY MOUTH EVERY DAY docusate sodium 100 mg capsule Active ? N ot available TAKE 1 CAPSULE BY MOUTH EVERY DAY NEEDED FOR CONSTIPATION ketoconazole 2 % shampoo Active ? Not yin ilable APPLY TOPICALLY TWICE A WEEK pantoprazole 20 mg tablet,delayed release Active ? Not available TAKE 1 TABLET BY MOUTH EVERY DAY Suprep Bowel Prep Kit 17.5 gram-3.13 gram-1.6 gram oral solution Active ? Not available TAKE DIRECTED, BOWEL PREP ursodiol 500 mg tablet Active ? Not avail able TAKE 1 TABLET TWICE DAILY Problems None recorded. Procedures None recorded. Results Lab Results Date Name Specimen Result Interpretation Description Value Range Status Address ? 01/21/2021 SARS-CoV-2 N Gene ? No observation ? ? ? [place], [place] + Probe recorded. [facility] [employer]: [address] [facility] Past Encounters None recorded. Social History Tobacco Smoking Status Never Smoker Vaccine List Vaccine Type COVID-19 (SARS-COV-2) vaccine, unspecifi ed 11/03/2020 11/28/2020 Plan of Care Reminders Provider Appointments None recorded. ? ? Lab None recorded. ? ? Referral None recorded. ? ? Procedures None recorded. ? ? Surgeries None recorded. ? ? Imaging None recorded. ? ? Vitals Blood Pressure 128/74 mm[Hg]
[2022-09-28 23:52] VITALS: BP 161/87; PULSE 70; RESP 16; TEMP 36.5; O2SAT 98
--- NOTE | 2022-09-28 23:53 | MHC.EDTECH ---
PATIENT LAST SET OF VITALS SIGN TAKEN BEFORE PATIENT DISCHARGE .
== END 2022-09-29 00:04 | disposition home or self-care (01) ==
PROVIDERS: Emergency Provider Emergency Medicine Emergency Medical Services; PCP Internal Medicine
DX: R07.89 Other chest pain (principal); M54.42 Lumbago with sciatica, left side; M54.41 Lumbago with sciatica, right side; R60.0 Localized edema; Z79.899 Other long term (current) drug therapy
CPT/HCPCS: 36415; 71275; 80048; 84484; 85025; 93005; 93971; 99284; Q9967

== ENCOUNTER 2022-12-23 22:54 | Emergency (ER) | payer OTHER, SELFPAY ==
--- NOTE | ~2022-12-23 | CT_ITS ---
EXAMINATION: CT KNEE WITHOUT CONTRAST, RIGHT CLINICAL INFORMATION: Limited range of motion, trauma. COMPARISON: Radiograph of the right knee done earlier today. TECHNIQUE: Multidetector volumetric axial images without IV contrast of the right knee. Coronal and sagittal reformats obtained. This CT examination was performed using dose optimization techniques as appropriate, variously including the following: *Automated exposure control *Adjustment of mA and/or kV according to patient size (this includes techniques or standardized protocols for targeted exams where dose is matched to indication/reason for exam; i.e. extremities or head) *Use of iterative reconstruction technique DLP: 184 mGy-cm FINDINGS: No acute fractures or subluxation. Moderate joint space narrowing with subcortical sclerosis and osteophytes of the medial and patellofemoral compartments. No chondrocalcinosis. No erosions. No destructive-appearing osseous lesions. Small to moderate size joint effusion measuring up to 1.3 cm in thickness. Scattered atherosclerotic disease. CT/CT knee RT wo IV con IMPRESSION: 1. No acute fractures or malalignment. 2. Moderate medial and patellofemoral compartment osteoarthritis. 3. Small to moderate size joint effusion.
--- NOTE | ~2022-12-23 | XR_ITS ---
EXAMINATION: XR KNEE, RIGHT CLINICAL INFORMATION: Knee pain. COMPARISON: None available. TECHNIQUE: Four views of the right knee. FINDINGS: No acute fractures or subluxation. Moderate joint space narrowing of the medial compartment and severe joint space narrowing of the patellofemoral compartment with associated subcortical sclerosis and bony productive changes suggestive of degenerative osteoarthritis. No chondrocalcinosis. No significant joint effusion. XR/XR knee RT 3V IMPRESSION: 1. No acute fractures or subluxation. 2. Moderate to severe degenerative osteoarthritis of the medial and patellofemoral compartments.
[2022-12-23 22:57] VITALS: BP 143/83; PULSE 74; RESP 18; TEMP 36.6; O2SAT 98; BMI 30.3
--- NOTE | 2022-12-23 23:52 | ED.LOWEXIN ---
HPI - Extremity Injury (Lower) General Chief Complaint: Extremity Injury, Lower Stated Complaint: right leg injury Time Seen by Provider: 12/23/22 22:58 Source: patient Mode of arrival: ambulatory Limitations: no limitations History of Present Illness HPI Narrative: Patient with no significant knee problems in the past apparently to stated his right knee while walking about a month ago since then been having difficulty incompletely bending the knee with occasional swelling patient re-injured his right knee while going up stairs yesterday and now has some swelling and pain no other injuries Related Data Previous Rx's Medication Instructions Recorded atorvastatin 20 mg tablet 20 mg PO DAILY #90 tabs 12/07/20 ketoconazole 2 % shampoo 2 appl topical 2XW #120 mL 12/07/20 docusate sodium 100 mg capsule 100 mg PO DAILY PRN constipation 04/03/21 #30 caps multivitamin (Daily Multi-Vitamin 1 tab PO DAILY #90 tabs 04/03/21 tablet) cholecalciferol (vitamin D3) 1,250 1,250 mcg PO QWEEK #14 caps 06/27/21 mcg (50,000 unit) capsule ursodiol 500 mg tablet 500 mg PO BID 3 months #180 tabs 02/06/22 Allergies Allergy/AdvReac Type Severity Reaction Status Date / Time Sulfa (Sulfonamide Allergy Itching Verified 12/23/22 22:56 Antibiotics) Review of Systems Review of Systems: Yes all other systems are reviewed and are negative PMFSH Past Medical History Medical History Constipation H/O angiography Hypercholesterolemia Seborrhea capitis Surgical History H/O colonoscopy History of appendectomy History of esophagogastroduodenoscopy (EGD) History of prostatectomy Family History Family History Father No problems noted. Mother No problems noted. Social History Social History Household Members: Spouse and Children Housing: House Alcohol intake: never Patient Tobacco Use Status: Never used Tobacco e-Cigarette/Vaping Use: Never Used Second Hand Smoke Exposure: No Advance Directives: No Advance Directives Information Provided: Yes service: No Current occupational status: retired Physical Exam Vital Signs: Vital Signs: Last Vital Signs Temp 97.8 F 12/23/22 22:57 Pulse 74 12/23/22 22:57 Resp 18 12/23/22 22:57 BP 143/83 H 12/23/22 22:57 Pulse Ox 98 12/23/22 22:57 O2 Del Method Room Air 12/23/22 22:57 BMI result Body Mass Index 30.3 Appearance: Alert. Oriented X3. No acute distress. Neck: Normal inspection. Neck supple. CVS: Normal heart rate and rhythm. Pulses normal. Respiratory: No respiratory distress. Equal air entry bilateral, no wheezing/rales/rhonchi Abdomen: Soft and nontender. Bowel sounds are present, Skin: Skin warm and dry. Normal skin color. Normal skin turgor. Extremities: No lower extremity edema. No calf tenderness Neuro: Oriented X 3. No motor deficit. Extrem: Upper/lower leg/hip images: 1. Tenderness and medial collateral ligament slight effusion limited flexion because of pain anterior drawer sign and Danilo sign negative Medical Decision Making Medical Decision Making MDM Narrative: Patient internal knee disease likely osteoarthritis knee mobilizer applied advised follow-up with PCP/orthopedic Discharge Plan Discharge Clinical Impression: Acute internal derangement of knee Patient Disposition: Home, Self-Care Instructions: Knee Pain (ED) Additional Instructions: About going upstairs/downstairs Wear knee immobilizer for support and comfort Ibuprofen for pain Follow-up with ortho if not better in 6 weeks Prescriptions: No Action atorvastatin 20 mg tablet 20 mg PO DAILY Qty: 90 0RF ketoconazole 2 % shampoo 2 appl topical 2XW Qty: 120 1RF cholecalciferol (vitamin D3) 1,250 mcg (50,000 unit) capsule 1,250 mcg PO QWEEK Qty: 14 0RF ursodiol 500 mg tablet 500 mg PO BID 90 Days Qty: 180 3RF multivitamin [Daily Multi-Vitamin] Tablet 1 tab PO DAILY Qty: 90 1RF docusate sodium 100 mg capsule 100 mg PO DAILY PRN (Reason: constipation) Qty: 30 2RF Referrals: Negrito Carrington MD [Physician] - 2 weeks Interventions: ED Discharge Assessment Last Done: 12/24/22 00:37 Discharge Date/Time: 12/24/22 00:41
== END 2022-12-24 00:41 | disposition home or self-care (01) ==
PROVIDERS: Emergency Provider Internal Medicine; PCP Internal Medicine
DX: M23.91 Unspecified internal derangement of right knee (principal); Z79.899 Other long term (current) drug therapy
CPT/HCPCS: 73562; 73700; 99283; 99284

== ENCOUNTER 2023-09-06 12:22 | Outpatient (AMB) | payer OTHER, SELFPAY ==
--- NOTE | 2023-09-06 12:26 | MHC.OFFVIS ---
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 Patient reports that he has had pain in the right knee since about december after twisting the knee while walking. He feels pain at all times, worsened with walking, standing and driving. He takes Motrin occasionally for pain which helps temporarily. 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 He twisted it in december and has swelling and pain ever since. He has not been treated for this. He is here today with his daughter. Most of his pain is medial. [facility] Medical History Constipation H/O angiography Hypercholesterolemia Seborrhea capitis Surgical History H/O colonoscopy History of appendectomy History of esophagogastroduodenoscopy (EGD) History of prostatectomy Family History Father No problems noted. Mother No problems noted. Social History Household Members: Spouse and Children Housing: House Alcohol intake: never Patient Tobacco Use Status: Never used Tobacco e-Cigarette/Vaping Use: Never Used Second Hand Smoke Exposure: No service: No Current occupational status: retired Physical Exam Vital Signs: BMI result Body Mass Index 30.3 Extrem Other: TTP medial joint line and medial compartment. Stable to v/v stress. There is a mild-moderate effusion. + [facility] Office Procedures Joint Injection/Drain Joint Injection/Drain Details: Injected 1 mL of Decadron and 3 mL 1% lidocaine and 3 mL of 0.25% Marcaine. Site was prepped using aseptic technique. Patient tolerated the procedure well. Primary Site: right knee Approach Used: anterolateral Coding 35886 - Large joint Procedure code (CPT) selection complete Results Reviewed Results Reviewed: I personally reviewed relevant radiographs. Moderate to severe degenerative osteoarthritis of the medial and patellofemoral compartments. Assessment & Plan Assessment & Plan (1) Arthritis of right knee: Code(s): M17.11 - Unilateral primary osteoarthritis, right knee Plan: This is a 72 yo M presenting with effusion and pain in his right knee over the past ~6 months. He has osteoarthritis and I explained this to him and his daughter. Symptomatic treatment is indicated. I injected his right knee and wrote for PT. We discussed Celebrex but he has a sulfa allergy and I think we should hold off on NSAIDs for now. A knee sleeve was given. He may follow up as needed, Orders: Orders PT Evaluation and Treatment 09/06/23 M17.11 - Unilateral primary osteoarthritis, right knee Coding Level of Care Code New Pt Level 4 (88100) Diagnoses Arthritis of right knee M17.11 CPT Codes Coding - 59250 Large joint: 57749 - Large joint ([id number])
[2023-09-06 12:33] VITALS: BMI 30.3
== END 2023-09-06 13:16 | disposition home or self-care (01) ==
PROVIDERS: PCP Internal Medicine; Visit Provider Orthopaedic Surgery
DX: M17.11 Unilateral primary osteoarthritis, right knee (principal)
CPT/HCPCS: 20610; 99203

== ENCOUNTER → 2023-09-06 12:22 | Outpatient (BNVA) | payer OTHER, SELFPAY | PROVIDERS: PCP Internal Medicine; Visit Provider Orthopaedic Surgery | DX: M17.11 Unilateral primary osteoarthritis, right knee (principal) | CPT/HCPCS: 20610; 99202; J0665; J1100 ==

== ENCOUNTER 2023-11-20 08:35 | Outpatient (AMB) | payer OTHER, SELFPAY ==
--- NOTE | 2023-11-20 08:42 | MHC.OFFVIS ---
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 Patient says symptoms at that time were related to professional stress and at that time he developed left arm discomfort and numbness and subsequently was rushed to the hospital very was given what appears to be a thrombolytic therapy and subsequently had a cardiac catheterization at a tertiary care hospital in [facility] and had a PTCA done. No stent was implanted at that time. Echo done at that time at shown that he had a leaky valve and preserved LV systolic function. The exact coronary artery is unclear at this point in time. He was then treated with atorvastatin which she has been taking since then 20 mg and he was on aspirin however in 2001 he developed GI bleed and since then he has not been taking aspirin. He was taking uncoated baby aspirin at that time. Since then he has been doing well. Since then he is moved to [facility] and lives with his son. He is very active but does get exertional shortness of breath. Said also at nighttime when he is sleeping he feels uncomfortable and has to wake up with shortness of breath. He denies any exertional chest discomfort or arm discomfort. Denies any lightheadedness, syncope. Denies any prolonged palpitations irregular heartbeat. He denies any leg edema. His last LDL on 20 mg of atorvastatin was 173 mg/dL. [facility] Medical History CAD (coronary artery disease) H/O angiography Seborrhea capitis Constipation Hypercholesterolemia Surgical History History of esophagogastroduodenoscopy (EGD) H/O colonoscopy History of prostatectomy History of appendectomy Family History Father No problems noted. Mother No problems noted. Social History Household Members: Spouse and Children Housing: House Alcohol intake: never Patient Tobacco Use Status: Never used Tobacco e-Cigarette/Vaping Use: Never Used Second Hand Smoke Exposure: No service: No Current occupational status: retired Review of Systems Const Denies chills, Denies daytime sleepiness, Denies fatigue, Denies fever(s), Denies frequent falls, Denies poor appetite, Denies snoring, Denies stops breathing during sleep, Denies weakness, Denies weight gain and Denies weight loss Eyes Denies loss of vision ENT Denies dizziness and Denies hearing loss Card Denies chest pain, Denies claudication, Denies leg edema, Denies lightheadedness, Denies palpitations, Denies dyspnea, Denies dyspnea on exertion and Denies orthopnea Resp Denies cough, Denies excessive phlegm production, Denies dyspnea, Denies dyspnea on exertion, Denies snoring and Denies wheezing GI Denies abdominal pain, Denies hematochezia, Denies change in bowel habits, Denies nausea and Denies vomiting Denies dysuria and Denies urinary frequency Musc Denies arthralgias, Denies muscle weakness, Denies numbness and Denies other (frequent falls) Skin/Breast Denies nail changes and Denies rash Neuro Denies Abnormal speech present, Denies dizziness, Denies frequent falls, Denies loss of vision, Denies memory loss, Denies numbness and Denies weakness Psych Denies depression and Denies memory loss Endo Denies fatigue and Denies palpitations Jason/Lymph Reports easy bruising and Reports other (anemia) Aller/Immun Denies wheezing Physical Exam Vital Signs: Last Vital Signs Pulse 62 11/20/23 08:43 BP 120/70 11/20/23 08:43 BMI result Body Mass Index 30.0 Const General: cooperative, comfortable, no acute distress, alert, awake and Physically active Nutritional Appearance: obese Orientation/consciousness: patient oriented x3 Limitations: no limitations HEENT Head: Yes normocephalic and Yes atraumatic Neck Neck: Yes trachea midline, Yes supple and Yes no JVD Resp Effort & Inspection: normal respiratory effort Auscultation: clear to auscultation bilaterally Cardio Jugular venous distension: no JVD Palpation: normal PMI Rate: regular rate Rhythm: regular rhythm Heart sounds: S1 normal heart sound present, S2 normal heart sound present, no click, no gallops and Murmur heart sound present systolic holo, harsh and at the apex Peripheral pulses: Peripheral pulses 2+ throughout GI Auscultation: normal bowel sounds Skin General skin exam: no rashes or lesions noted Neuro General: patient oriented x3 and no focal motor deficits Speech: No Abnormal speech present Extrem General: Yes no clubbing, cyanosis or edema Psych Appearance: grossly normal Office Procedures EKG Details: EKG shows normal sinus rhythm with normal EKG at 61 beats per minute with no Q-waves [id number], Complete Assessment & Plan Assessment & Plan (1) CAD (coronary artery disease): Code(s): I25.10 - Atherosclerotic heart disease of [place] coronary artery without angina pectoris Plan: Patient with prior myocardial infarction in 1997 remotely. Exact location of myocardial infarction is unknown. He was given thrombolytics so apparently had ST-elevation myocardial infarction subsequently had angioplasty done. They will try to obtain old records. I discussed about management of coronary artery disease with secondary prevention with coated baby aspirin. If she starts bothering his GI tract he is advised to start acid reflux medicines at that point in time. His LDL is not currently well optimized. Have therefore taken the liberty to increase atorvastatin to 80 mg and add ezetimibe 10 mg to his regimen to target goal LDL less than 70 mg/dL. His blood pressure is currently well optimized. Will obtain echocardiogram, see below. Will also obtain exercise myocardial perfusion imaging to evaluate for progressive coronary artery disease given his symptoms of exertional shortness of breath. (2) Mitral regurgitation: Code(s): I34.0 - Nonrheumatic mitral (valve) insufficiency Plan: Patient has clinical murmur suggestive of mitral regurgitation. Patient has symptoms of exertional shortness of breath and also symptoms suggestive of PND. This is concerning. Will obtain an echocardiogram near future to assess for primary versus secondary cause for mitral regurgitation and associated LV size and systolic function. Also biatrial chamber size and pulmonary hypertension will be evaluated with echocardiogram. Further treatment based on the findings of the echocardiogram. Will follow up in the clinic in 6 weeks time, sooner p.r.n.. Thank you for allowing me to partake in his care Orders: Orders CA echo transthoracic complete Today I34.0 - Nonrheumatic mitral (valve) insufficiency NM cardiolite stress test 2 Weeks I25.10 - Atherosclerotic heart disease of [place] coronary artery without angina pectoris, R07.9 - Chest pain, unspecified CA stress test Today I25.10 - Atherosclerotic heart disease of [place] coronary artery without angina pectoris Medications: New aspirin (Ecotrin Low Strength) 81 mg PO DAILY 30 tabs 5RF I25.10 - Atherosclerotic heart disease of [place] coronary artery without angina pectoris atorvastatin 80 mg PO DAILY 30 tabs 5RF I25.10 - Atherosclerotic heart disease of [place] coronary artery without angina pectoris ezetimibe (Zetia) 10 mg PO DAILY 30 tabs 5RF I25.10 - Atherosclerotic heart disease of [place] coronary artery without angina pectoris Discontinued atorvastatin Discontinued Reason: Doctor's Order 20 mg PO DAILY 90 tabs 0RF Coding Level of Care Code New Pt Level 4 (52798) Diagnoses CAD (coronary artery disease) I25.10 Mitral regurgitation I34.0 CPT Codes EKG - CPT: 45561-[id number], Complete ([id number])
[2023-11-20 08:43] VITALS: BP 120/70; PULSE 62
== END 2023-11-20 09:34 | disposition home or self-care (01) ==
PROVIDERS: PCP Internal Medicine; Visit Provider Internal Medicine Cardiovascular Disease
DX: I25.10 Atherosclerotic heart disease of native coronary artery without angina pectoris (principal); I34.0 Nonrheumatic mitral (valve) insufficiency
CPT/HCPCS: 93010; 99204

== ENCOUNTER → 2023-11-20 08:35 | Outpatient (BNVA) | payer OTHER, SELFPAY | PROVIDERS: PCP Internal Medicine; Visit Provider Internal Medicine Cardiovascular Disease | DX: I25.10 Atherosclerotic heart disease of native coronary artery without angina pectoris (principal); I34.0 Nonrheumatic mitral (valve) insufficiency | CPT/HCPCS: 93005; 99202 ==

== ENCOUNTER → 2023-11-21 08:52 | Outpatient (REF) | payer OTHER, SELFPAY ==
--- NOTE | 2023-11-21 08:59 | CA_ITS ---
Transthoracic Echocardiogram Patient (Last, First, Middle): Josue Warner, Gender: Male Date of : 1950 Age: 73 Procedure Date: 11/21/2023 Procedure Type: Transthoracic Echocardiogram Location: OP Height: 180.34 cm Weight: 95.99 kg BSA: 2.16 m2 Heart Rate: 60 bpm BP: 142 / 85 mmHg Insulation Board Calender Operator: JENNI Referring MD: Mendel Leavitt MD Marine Engine Mechanic: Mendel Leavitt MD Symptoms: I34.0 - Nonrheumatic mitral (valve) insufficiency Study Quality: Fair ECG Rhythm: Sinus Conclusions: - 1. Normal LV ejection fraction 60 65% with pseudonormal filling pattern 2. Mildly dilated left atrium 3. At least moderate and eccentric mitral regurgitation could be underestimated 4. Mild aortic regurgitation 5. Normal RV systolic pressure 6. Mildly dilated ascending aorta at 3.7 cm 7. No gross pericardial effusion Findings Left Ventricle Normal left ventricular size, thickness, and systolic function. The visually estimated ejection fraction is between 60-65%. Spectral Doppler is indicative of a pseudonormal filling pattern. E/E prime ratio is between 8 and 15 consistent with indeterminate filling pressures. Wall Motion Rest Echo Findings The basal inferior and basal inferoseptal segments are hypokinetic. All other scored wall segments showed normal motion. Right Ventricle Normal right ventricular cavity size and systolic function. Atria The left atrium is mildly dilated. There is no evidence of interatrial shunt. The right atrium is likely dilated. Aortic Valve Normal aortic valve structure and function. There is no aortic valve stenosis. There is mild aortic valve regurgitation. Mitral Valve There is moderate anterior and posterior mitral leaflet thickening. There is mild mitral annular calcification. There is moderate mitral valve regurgitation. There is no mitral valve stenosis. Pulmonic Valve The pulmonic valve is likely normal. There is trace pulmonic valve regurgitation. Tricuspid Valve Normal tricuspid valve structure. There is trace tricuspid valve regurgitation. The right ventricular systolic pressure is normal. The right ventricular systolic pressure is 15 mmHg. Normal right atrial pressure. There is no evidence of pulmonary hypertension. Great Vessels The pulmonary artery was not well visualized. There is mild dilatation of the ascending aorta measuring 3.70 cm. Venous The inferior vena cava is normal in size and collapses greater than 50% with inspiration. Pericardium/Pleural There is no evidence of pericardial effusion. Prior Study Comparison No prior study available for comparison. Recommendations, Care & Conclusions Consider a SARAVANAN if clinically appropriate. Measurements 2D Linear Measurements IVSd: 0.90 0.6-0.9/0.6-1.0 cm LVIDd: 4.76 3.9-5.3/4.2-5.9 cm LVIDd Index: 2.20 2.4-3.2/2.2-3.1 cm/m2 LVIDs: 2.64 2.0-3.6 cm LVPWd: 1.17 0.7-1.1 cm LA Diam: 4.30 2.7-3.8/3.0-4.0 cm LAIDs Index: 1.99 1.5-2.3 cm/m2 LV Mass: 218.61 67-162/88-224 g LV Mass Index: 101.21 43-95/49-115 g/m2 LVOT Diam: 2.10 3.0+(-)1.3 cm 2D Systolic Function EF 4C: 67.20 >55% EF 2C: 61.70 >55% EF BiP: 65.10 >55% Mitral Valve MV Pk E: 1.28 MV PK A: 0.76 MV Decel Time: 177.00 E/A: 1.70 E'Lateral: 8.05 E'Medial: 6.31 E/E' Med: 20.30 E/E' Lat: 15.90 PHT: 52.00 MVA PHT: 4.23 Decel Ashe: 7.25 MR Vol - PW Dopp: 22.92 MR VTI: 1.91 MR ERO: 12.00 MR Alias Walter: 0.39 MR RAD: 0.50 Aortic Valve AoV Pk Walter: 1.24 AoV Mn Walter: 0.88 AoV VTI: 0.30 AoV Pk Grad: 6.00 Aov Mn Grad: 3.00 TRACE Cont.VTI: 2.59 LVOT LVOT Pk Walter: 1.00 LVOT Mn Walter: 0.62 LVOT VTI: 0.22 LVOT Pk Grad: 4.00 LVOT Mn Grad: 2.00 LVOT Diam: 2.10 LVOT Area: 3.46 Diastolic Function MV Pk E: 1.28 MV Pk A: 0.76 E/A: 1.70 E'Medial: 6.31 E/E' Med: 20.30 E' Laterial: 8.05 E/E' Lat: 15.90 Tricuspid Valve TR Pk Walter: 1.71 TR Pk Grad: 12.00 RA Press: 3.00 RVSP: 15.00 Great Vessels Aorta Sinus of Valsalva: 3.70 2.0-3.5 cm Ao Asc: 3.70 2.1-3.4 cm Pulmonary Valve PV Pk Walter: 0.84 Peak PV Grad: 3.00 Updated in Other Vendor System with Status of Final Mendel Leavitt MD electronically signed on 11/21/2023 2:05:52 PM with status of Final
== END ==
LOC: HO.CARD 08:52
PROVIDERS: PCP Internal Medicine; Visit Provider Internal Medicine Cardiovascular Disease
DX: I34.0 Nonrheumatic mitral (valve) insufficiency (principal)
CPT/HCPCS: 93306

== ENCOUNTER → 2023-11-21 08:59 | Outpatient (BNV) | payer OTHER, SELFPAY | PROVIDERS: PCP Internal Medicine; Visit Provider Internal Medicine Cardiovascular Disease | DX: I34.81 Nonrheumatic mitral (valve) annulus calcification (principal); I34.0 Nonrheumatic mitral (valve) insufficiency | CPT/HCPCS: 93306 ==

== ENCOUNTER → 2023-11-28 09:40 | Outpatient (REF) | payer OTHER, SELFPAY ==
--- NOTE | ~2023-11-28 | NM_ITS ---
Myocardial perfusion study Indication: Shortness of breath to evaluate for myocardial ischemia Technique: The patient was brought in for a Lexiscan perfusion study on 11/28/2023. Patient performed low-level exercise and was injected 0.4 mg of Lexiscan intravenously. Within a minute of injection, 30 mCi of sestamibi was given intravenously. Images were obtained using the SPECT gamma camera interlaced with the gating device. Images were obtained in supine position. Resting perfusion study was performed on 11/29/2023. Patient was administered 30 mCi of sestamibi intravenously at rest. Images were then obtained in supine position. Images obtained with and without CT attenuation. Total DLP 42 mGy-cm. Images were processed with the software and compared side to side in short axis, horizontal long axis and vertical long axis views. Findings: The stress perfusion study showed non attenuated images show mildly reduced uptake in the basal and mid inferior wall of the LV myocardium, remainder of the LV myocardium is normally perfused. Attenuation corrected images show normal uptake of radiotracer in all segments of LV myocardium. The gated study shows normal LV systolic function with calculated LVEF of 63%. LV cavity is normal in size. The gated study shows normal systolic wall thickening and contraction of segments. Resting study shows no change in perfusion pattern compared to stress perfusion study. Gating at rest reveals normal systolic wall motion with ejection fraction at 73%. The findings are consistent with normal myocardial perfusion. NM/NM cardiolite stress test Impression: 1. Myocardial perfusion imaging study shows normal myocardial perfusion 2. Gated LVEF is 63% 3. Transient ischemic dilatation not present EKG is nondiagnostic for ischemia
--- NOTE | 2023-11-28 09:44 | CA_ITS ---
Acquisition Time: 2023-11-28 10:06:44 Total Exercise Time: 00:00:37 Test Indications: SOB Medications: Protocol: RADHA Max HR: 115 BPM 79% of Pred: 145 BPM Max BP: 164/088 mmHG Max Work Load: 2.0 METS Exercise stress test exercise 37 sec achieving 68% MPHR. Terminated due to difficultty with treadmill. Test changed to pharmacological stress test. Pharmacological stress test with Lexiscan injection while sitting and kicking his legs, without anginal symptoms, without arrhythmias, with normotensive response to injection, with nondiagnoistic EKGs. Aminophylline 75mg IVP given to reverse Lexiscan. Nuclear images pending. Test reviewed with Dr. Leavitt Referred By: Mendel Leavitt Overread By: Shanda Lindsay
== END ==
LOC: HO.CARD 09:40
PROVIDERS: PCP Internal Medicine; Visit Provider Internal Medicine Cardiovascular Disease
DX: R07.9 Chest pain, unspecified (principal); I25.10 Atherosclerotic heart disease of native coronary artery without angina pectoris
CPT/HCPCS: 78452; 93017; A9500; J0280; J2785

== ENCOUNTER → 2023-11-28 09:44 | Outpatient (BNV) | payer OTHER, SELFPAY | PROVIDERS: PCP Internal Medicine; Visit Provider Nurse Practitioner | DX: R06.02 Shortness of breath (principal); R07.9 Chest pain, unspecified | CPT/HCPCS: 78452; 93016; 93018 ==

== ENCOUNTER 2023-11-29 11:01 | Outpatient (REF) | payer OTHER, SELFPAY ==
[2023-11-29 11:23] LABS: MANUAL DIFF FLAG NO
[2023-11-29 12:20] LABS: Urine Cytology See Pathology rpt
[2023-11-29 12:23] LABS: Basophils Absolute Auto 0.1 X10*3/uL (0.0-0.2); Basophils Percent Auto 0.6 % (0-2); Eosinophils Absolute Auto 0.2 X10*3/uL (0.0-0.4); Hematocrit 46.8 % (42.0-52.0); Hemoglobin 15.5 g/dl (14.0-18.0); Imm Gran Abs Auto 0.03 X10*3/uL (0.00-0.03); Imm Gran Pct Auto 0.3 % (0.0-0.4); Lymphocytes Absolute Auto 2.8 X10*3/uL (1.2-4.9); Lymphocytes Percent Auto 31.5 % (20-40); Mean Corpuscular HGB Conc 33.1 g/dl (31.0-36.0); Mean Corpuscular Hemoglobin 26.1 pg (27.0-33.0); Mean Corpuscular Volume 78.7 fL (80.0-98.0); Mean Platelet Volume 10.4 fL (9.4-12.4); Monocytes Absolute Auto 0.5 X10*3/uL (0.1-1.2); Monocytes Percent Auto 5.8 % (2-11); Neutrophils Absolute Auto 5.3 x10*3/uL (2.0-8.3); Neutrophils Percent Auto 59.8 % (45-73); Platelet Count 273 X10*3/uL (160-400); Red Blood Count 5.95 X10*6/uL (4.60-5.80); Red Cell Distribution Width 16.4 % (11.0-16.0); White Blood Count 8.9 X10*3/uL (4.8-10.8)
[2023-11-29 12:48] LABS: Appearance Urine Clear; Color Urine Yellow; Glucose Urine UA Negative (Negative); Leukocyte Esterase Urine Negative (Negative); Nitrite Urine Negative (Negative); PH 5.5 (5.0-9.0); Urine Blood Negative (Negative); Urine Ketones Negative (Negative); Urine Protein Negative (Neg-Trace)
[2023-11-29 12:53] LABS: Bacteria Urine None Seen (None Seen); Hyaline Casts Urine 0-2 /LPF (0-2); RBC Urine 0-2 /HPF (0-2); Squamous Epithelial Cell Urine 0-2 /HPF (0-2); WBC Urine 0-5 /HPF (0-5)
[2023-11-29 12:55] LABS: Alanine Aminotransferase 14 U/L (0-40); Albumin Level 4.2 g/dL (3.5-5.0); Alkaline Phosphatase 138 U/L (39-117); Anion Gap 12 (12-20); Aspartate Amino Transferase 16 U/L (5-37); Bilirubin Total 0.6 mg/dL (0.0-1.0); Blood Urea Nitrogen 16 mg/dL (9-16); Calcium 9.4 mg/dL (8.4-10.2); Carbon Dioxide 23 mmol/L (22-29); Chloride 110 mmol/L (96-108); Cholesterol 133 mg/dL (<200); Estimated Glomerular Filt Rate > 60; Glucose Random 93 mg/dL (60-115); HDL Cholesterol 41 mg/dL (>40); LDL Cholesterol Calculated 73 mg/dL (<100); Potassium 4.4 mmol/L (3.3-5.1); Sodium 141 mmol/L (135-145); Total Protein 7.1 g/dL (6.5-8.0); Triglycerides 99 mg/dL (<150)
[2023-11-29 13:14] LABS: Prostate Specific Antigen 1.79 ng/mL (<0.05-4.0)
== END 2023-11-29 11:02 | disposition home or self-care (01) ==
LOC: HO.LAB 11:01
PROVIDERS: PCP Internal Medicine; Visit Provider Internal Medicine
DX: R31.9 Hematuria, unspecified (principal); I10 Essential (primary) hypertension; Z12.5 Encounter for screening for malignant neoplasm of prostate
CPT/HCPCS: 36415; 80053; 80061; 81001; 84153; 85025; 88112

== ENCOUNTER 2023-12-06 11:34 | Outpatient (AMB) | payer OTHER, SELFPAY ==
--- NOTE | 2023-12-06 11:43 | A.OFFVIS_ITS ---
Intake Vital Signs 12/06/23 11:44 Height 5 ft 10 in Weight 209 lb BMI 30.0 Intake Visit Reasons: OV- Right Knee OA - Last Injection 09/06/23 Intake Note: Josue is a 73 year old male who presents today for a follow up of his right knee OA, Last injection done 09/06/23. Patient reports that this injection was helpful and he would like to repeat injection today. Allergies latex Allergy (Verified 09/06/23 12:35) Rash Sulfa (Sulfonamide Antibiotics) Allergy (Verified 12/23/22 22:56) Itching HPI OV- Right Knee OA - Last Injection 09/06/23 HPI Details Continue right knee pain. It has improved dramatically from when I saw him initially but the pain has started to return. [facility] Medical History CAD (coronary artery disease) H/O angiography Seborrhea capitis Constipation Hypercholesterolemia Surgical History History of esophagogastroduodenoscopy (EGD) H/O colonoscopy History of prostatectomy History of appendectomy Family History Father No problems noted. Mother No problems noted. Social History Household Members: Spouse and Children Housing: House Alcohol intake: never Patient Tobacco Use Status: Never used Tobacco e-Cigarette/Vaping Use: Never Used Second Hand Smoke Exposure: No service: No Current occupational status: retired Physical Exam Vital Signs: BMI result Body Mass Index 30.0 Extrem Other: Right knee with TTP over medial joint line 0-125 deg motion Office Procedures Joint Injection/Drain Joint Injection/Drain Details: Injected 1 mL of Decadron and 3 mL 1% lidocaine and 3 mL of 0.25% Marcaine. Site was prepped using aseptic technique. Patient tolerated the procedure well. Primary Site: right knee Approach Used: anterolateral Coding 44083 - Large joint Procedure code (CPT) selection complete Assessment & Plan Assessment & Plan (1) Arthritis of right knee: Code(s): M17.11 - Unilateral primary osteoarthritis, right knee Plan: Injected right knee I recommend cycling and closed chain strengthening f/u 3 months as needed Discussed gel and PRP Coding Level of Care Code Est Pt Level 3 (86962) Diagnoses Arthritis of right knee M17.11 CPT Codes Coding - 19147 Large joint: 33988 - Large joint ([id number])
== END 2023-12-06 12:20 | disposition home or self-care (01) ==
PROVIDERS: PCP Internal Medicine; Visit Provider Orthopaedic Surgery
DX: M17.11 Unilateral primary osteoarthritis, right knee (principal)
CPT/HCPCS: 20610; 99213

== ENCOUNTER → 2023-12-06 11:34 | Outpatient (BNVA) | payer OTHER, SELFPAY | PROVIDERS: PCP Internal Medicine; Visit Provider Orthopaedic Surgery | DX: M17.11 Unilateral primary osteoarthritis, right knee (principal) | CPT/HCPCS: 20610; 99212; J0665; J1100 ==

== ENCOUNTER 2024-01-02 08:22 | Outpatient (AMB) | payer OTHER, SELFPAY ==
--- NOTE | 2024-01-02 08:38 | A.OFFVIS_ITS ---
Intake Vital Signs 01/02/24 08:39 Height 5 ft 10 in Weight 217 lb 6.012 oz BMI 31.2 BP 120/90 H Blood Pressure Location Rt brachial Position Sitting Pulse 76 Pulse Source Pulse Oximeter Intake Visit Reasons: 6 wk s/p echo/ mibi Allergies latex Allergy (Verified 01/02/24 08:40) Rash Sulfa (Sulfonamide Antibiotics) Allergy (Verified 01/02/24 08:40) Itching Medication List - Last Reconciled 01/02/24 by Mendel Leavitt MD aspirin (Ecotrin Low Strength) 81 mg PO DAILY atorvastatin 80 mg PO DAILY celecoxib (Celebrex) 200 mg PO DAILY ezetimibe (Zetia) 10 mg PO DAILY multivitamin (Daily Multi-Vitamin tablet) 1 tab PO DAILY HPI HPI Comments History of Present Illness Details Josue comes for follow-up. His myocardial perfusion imaging was within normal limits, done a vasodilators stress test that he was having difficulty with a treadmill. He continues to have exertional shortness of breath actually said when running across the parking lot today he did get short of breath. His echocardiogram shows normal LV ejection fraction but shows at least moderate eccentric mitral regurgitation which could be underestimated. Patient continues to have similar shortness of breath nighttime sometimes blood pressure is generally well controlled with systolic in the 130s. Takes all his medications regularly. Denies any prolonged palpitations irregular heartbeat. [facility] Medical History CAD (coronary artery disease) H/O angiography Seborrhea capitis Constipation Hypercholesterolemia Surgical History History of esophagogastroduodenoscopy (EGD) H/O colonoscopy History of prostatectomy History of appendectomy Family History Father No problems noted. Mother No problems noted. Social History Household Members: Spouse and Children Housing: House Alcohol intake: never Patient Tobacco Use Status: Never used Tobacco e-Cigarette/Vaping Use: Never Used Second Hand Smoke Exposure: No service: No Current occupational status: retired Review of Systems ENT Reports dizziness Card Denies chest pain, Denies chest pain at rest, Denies chest pain with activity, Denies rapid heart rate, Denies pedal edema, Denies edema, Denies leg edema, Denies lightheadedness, Denies palpitations, Denies dyspnea, Denies dyspnea on exertion and Denies orthopnea Resp Denies cough, Denies dyspnea and Denies dyspnea on exertion GI Denies hematochezia and Denies change in stool character Musc Denies abnormal gait, Reports limited range of motion, Reports muscle cramps, Denies muscle weakness, Denies numbness, Denies radiating pain into limb, Denies stiffness and Denies tingling Neuro Denies Abnormal speech present, Denies abnormal gait, Reports dizziness, Denies numbness and Denies tingling Endo Denies palpitations Physical Exam Vital Signs: Last Vital Signs Pulse 76 01/02/24 08:39 BP 120/90 H 01/02/24 08:39 BMI result Body Mass Index 31.2 Const General: cooperative, comfortable, no acute distress, alert, awake and Physically active Nutritional Appearance: obese Orientation/consciousness: patient oriented x3 Limitations: no limitations HEENT Head: Yes normocephalic and Yes atraumatic Neck Neck: Yes trachea midline, Yes supple and Yes no JVD Resp Effort & Inspection: normal respiratory effort Auscultation: clear to auscultation bilaterally Cardio Jugular venous distension: no JVD Palpation: normal PMI Rate: regular rate Rhythm: regular rhythm Heart sounds: S1 normal heart sound present, S2 normal heart sound present, no click, no gallops and Murmur heart sound present systolic holo, harsh and at the apex Peripheral pulses: Peripheral pulses 2+ throughout GI Auscultation: normal bowel sounds Skin General skin exam: no rashes or lesions noted Neuro General: patient oriented x3 and no focal motor deficits Speech: No Abnormal speech present Extrem General: Yes no clubbing, cyanosis or edema Psych Appearance: grossly normal Assessment & Plan Assessment & Plan (1) Mitral regurgitation: Code(s): I34.0 - Nonrheumatic mitral (valve) insufficiency Plan: Mitral regurgitation which at least moderate by echocardiogram could be underestimated due to eccentric nature of the mitral regurgitation. Suggest transesophageal echocardiogram to further assess the mitral valve. Discussed with him the need for transesophageal echocardiogram as if he has significant mitral regurgitation may require further evaluation for repair. We discussed the procedure in details including risk, benefits and alternatives. He und erstands agrees. Will schedule in near future. (2) CAD (coronary artery disease): Code(s): I25.10 - Atherosclerotic heart disease of [place] coronary artery without angina pectoris Plan: CAD with prior myocardial infarction with recent echocardiogram shows normal LV ejection fraction with normal myocardial perfusion. Good prognosis with this was discussed. Continue aggressive medical therapy including low-dose aspirin therapy for life. Continue high-intensity statin therapy along with ezetimibe with target goal LDL less than 70 mg/dL. Advised lipid panel at least on annual basis. Continue monitor blood pressure on a regular basis. Advised to increase activity level and maintain heart healthy lifestyle and diet. Will follow up in the clinic in 1 year's time, sooner p.r.n.. Thank you for allowing me to partake in his care Orders: Orders CA echo transesophageal Today I34.0 - Nonrheumatic mitral (valve) insufficiency Coding Level of Care Code Est Pt Level 4 (11276) Diagnoses Mitral regurgitation I34.0 CAD (coronary artery disease) I25.10
[2024-01-02 08:39] VITALS: BP 120/90; PULSE 76; BMI 31.2
== END 2024-01-02 09:04 | disposition home or self-care (01) ==
PROVIDERS: PCP Internal Medicine; Referring Provider Internal Medicine; Visit Provider Internal Medicine Cardiovascular Disease
DX: I34.0 Nonrheumatic mitral (valve) insufficiency (principal); I25.10 Atherosclerotic heart disease of native coronary artery without angina pectoris
CPT/HCPCS: 99214

== ENCOUNTER → 2024-01-02 08:22 | Outpatient (BNVA) | payer OTHER, SELFPAY | PROVIDERS: PCP Internal Medicine; Visit Provider Internal Medicine Cardiovascular Disease | DX: I34.0 Nonrheumatic mitral (valve) insufficiency (principal); I25.10 Atherosclerotic heart disease of native coronary artery without angina pectoris; I10 Essential (primary) hypertension | CPT/HCPCS: 99212 ==

== ENCOUNTER 2024-01-08 09:37 | Day surgery (SDC) | payer OTHER, SELFPAY ==
--- NOTE | 2024-01-06 13:46 | HO.ANESPROP2 ---
Documented by User: Gloria Lozoya NP 01/06/24 13:48 HPI - Anesthesia Eval Consult details Narrative: 73yo M for Transesophageal Echocardiogram PMFSH Active Problems Active Problems: All Active Problems Mitral regurgitation (Acute) CAD (coronary artery disease) (Acute) Arthritis of right knee (Acute) Biliary colic (Acute) Microcytosis (Acute) Gallstone (Acute) Hypercholesterolemia (Acute) Seborrhea capitis (Acute) Constipation (Acute) Past Medical History Medical History CAD (coronary artery disease) H/O angiography Seborrhea capitis Constipation Hypercholesterolemia Family History Family History Father No problems noted. Mother No problems noted. Surgical History Surgical History History of esophagogastroduodenoscopy (EGD) H/O colonoscopy History of prostatectomy History of appendectomy Social History Social History Household Members: Spouse and Children Housing: House Alcohol intake: never Patient Tobacco Use Status: Never used Tobacco e-Cigarette/Vaping Use: Never Used Second Hand Smoke Exposure: No Use of substances other than those prescribed or required for medical reasons: No Are you DNR?: No Advance Directives: No Advance Directives Information Provided: Yes service: No Current occupational status: retired Meds Allergies Allergy/AdvReac Type Severity Reaction Status Date / Time latex Allergy Rash Verified 01/08/24 09:51 Sulfa (Sulfonamide Allergy Itching Verified 01/08/24 09:51 Antibiotics) Exam Pertinent Lab Results Pertinent Lab Results: Laboratory Tests 11/29/23 11:22 WBC 8.9 Hgb 15.5 Hct 46.8 Plt Count 273 Sodium 141 Potassium 4.4 Chloride 110 H Carbon Dioxide 23 BUN 16 Creatinine 0.96 Narrative Narrative: EKG 11/2023 normal sinus rhythm with normal EKG at 61 beats per minute with no Q-waves ECHO 2023 Conclusions: - 1. Normal LV ejection fraction 60 65% with pseudonormal filling pattern 2. Mildly dilated left atrium 3. At least moderate and eccentric mitral regurgitation could be underestimated 4. Mild aortic regurgitation 5. Normal RV systolic pressure 6. Mildly dilated ascending aorta at 3.7 cm 7. No gross pericardial effusion NM cardiolite stress test 11/2023 Impression: 1. Myocardial perfusion imaging study shows normal myocardial perfusion 2. Gated LVEF is 63% 3. Transient ischemic dilatation not present EKG is nondiagnostic for ischemia Assessment and Plan Assessment Anesthesia Assessment: Chart Reviewed Documented by User: Faith Shoemaker MD 01/08/24 12:52 HPI - Anesthesia Eval Consult details Narrative: 73yo M for Transesophageal Echocardiogram. S/p SARAVANAN 11/21/23- at least moderate Mitral regurg but possibly underestimated. For SARAVANAN for more accurate assessment of mitral valve PMFSH Active Problems Active Problems: All Active Problems Mitral regurgitation (Acute). TTE 11/21/23- at least moderate mitral regurg CAD (coronary artery disease) (Acute)- denies recent chestpain Arthritis of right knee (Acute) Biliary colic (Acute) Microcytosis (Acute) Gallstone (Acute) Hypercholesterolemia (Acute) Seborrhea capitis (Acute) Constipation (Acute) Past Medical History Medical History CAD (coronary artery disease) H/O angiography Seborrhea capitis Constipation Hypercholesterolemia Family History Family History Father No problems noted. Mother No problems noted. Family history of problems with anesthesia: No Surgical History Surgical History History of esophagogastroduodenoscopy (EGD) H/O colonoscopy History of prostatectomy History of appendectomy History of Problems with Anesthesia: No Social History Social History Household Members: Spouse and Children Housing: House Alcohol intake: never Patient Tobacco Use Status: Never used Tobacco e-Cigarette/Vaping Use: Never Used Second Hand Smoke Exposure: No Use of substances other than those prescribed or required for medical reasons: No Are you DNR?: No Advance Directives: No Advance Directives Information Provided: Yes service: No Current occupational status: retired Meds Allergies Allergy/AdvReac Type Severity Reaction Status Date / Time latex Allergy Rash Verified 01/08/24 09:51 Sulfa (Sulfonamide Allergy Itching Verified 01/08/24 09:51 Antibiotics) Exam Height,Weight and Vital Signs: Height 5 ft 11 in Weight 98.883 kg Vital Signs Temp Pulse Resp BP Pulse Ox O2 Del Method 01/08/24 10:42 98.3 F 66 16 146/79 H 98 Room Air Airway Mallampati Class: III TM Dist: >3cm Neck ROM: Full Loose/Missing/Broken Teeth: No (Denies broken, loose, missing teeth) Heart: RRR Lungs: CTAB Assessment and Plan Assessment Anesthesia Assessment: Anesthesia Plan Discussed and Chart Reviewed Final Anesthetic Review Family History of Problems with Anesthesia: No History of Problems with Anesthesia: No NPO: Yes ASA Class: III Final Preanesthetic Review: No Changes in Pt Med Stat, Meds/Allgs Chart Reviewed, Consent Obtained/Reviewed and Anes Risks/Benef Reviewed Patient Risk: Intermediate Procedure Risk: Low Anesthetic Plan Anesthetic Plan: MAC: and TIVA Disposition: Standard PACU
[2024-01-08 09:50] VITALS: BMI 30.4
[2024-01-08 10:42] VITALS: BP 146/79; PULSE 66; RESP 16; TEMP 36.8; O2SAT 98
[2024-01-08] MEDS: Lactated Ringers 1,000 ML 100 ML IVCONT (10:58)
--- NOTE | 2024-01-08 12:17 | CA_ITS ---
Transesophageal Echocardiogram Patient (Last, First, Middle): Josue Warner, Gender: Male Date of : 1950 Age: 73 Procedure Date: 01/08/2024 Procedure Type: Transesophageal Echocardiogram Location: OP Height: 172.72 cm Weight: kg Plumbing Installer: MARYCHUY Referring MD: Mendel Leavitt MD Train Conductor: Mendel Leavitt MD Symptoms: I34.0 - Nonrheumatic mitral (valve) insufficiency Conclusion: ??? 1. Normal LV ejection fraction of 60-65% 2. Enlarged left atrium 3. No intracardiac thrombi, masses or vegetations 4. Moderate to moderately severe mitral regurgitation which is eccentric related to restricted posterior leaflet 5. No intracardiac shunting 6. No significant abnormality of pericardium 7. Mild atherosclerotic change in the descending thoracic aorta Findings Procedure Information Consent was obtained prior to the procedure. Pre SARAVANAN oral cavity was checked and revealed mild overcrowding. The adult 3D probe was passed with no difficulty. Left Ventricle Normal left ventricular size, thickness, and systolic function. The visually estimated ejection fraction is between 60-65%. Spectral Doppler is indicative of an impaired relaxation filling pattern. There are no obvious regional wall motion abnormality seen. There are no intracardiac thrombi or masses seen. Right Ventricle Normal right ventricular cavity size and systolic function. Atria The left atrium is mildly dilated. There is no evidence of thrombus or mass in the left atrium. The left atrial appendage was identified multiple views. The no thrombi or masses seen. The left upper, right upper and right lower pulmonary veins drain normally into the left atrium. The interatrial septum is intact. The right atrium is normal in size. There is no evidence of thrombus or mass in the right atrium. the IVC and SVC drain normally into the right atrium. Aortic Valve Normal aortic valve structure and function. There is no aortic valve stenosis. There is no evidence of a mass on the aortic valve. There is trace (trivial) aortic valve regurgitation. Mitral Valve There is moderate anterior and posterior mitral leaflet thickening. The posterior mitral leaflet has restricted mobility. There is mild posterior mitral annular calcification. There is mild mitral annular calcification. There is moderate mitral valve regurgitation. The mitral regurgitation jet is directed posteriorly. The mitral regurgitant volume is 33.84 ml. The effective regurgitant orifice is 24.00 cm2. There is no mitral valve stenosis. There is no mass noted on the mitral valve. Quantitative measurements are suggestive of moderate mitral regurgitation although the regurgitation jet is eccentric and could be underestimated and could be moderately severe. Pulmonic Valve The pulmonic valve is normal. There is no mass noted on the pulmonic valve. There is trace pulmonic valve regurgitation. Tricuspid Valve Normal tricuspid valve structure. There is mild tricuspid valve regurgitation. There is no evidence of a mass on the tricuspid valve. The right ventricular systolic pressure is normal. Great Vessels All visible segments of the aorta are normal in size. Small plaque is seen in the descending thoracic aorta. The visualized portions of the pulmonary artery and branches are normal. Venous The inferior vena cava is normal in size and collapses greater than 50% with inspiration. Pericardium/Pleural There is no evidence of pericardial effusion. Measurements Mitral Valve MR Vol - PW Dopp: 33.84 MR VTI: 1.41 MR ERO: 24.00 MR Alias Walter: 0.36 MR RAD: 0.70 Updated by Mendel Leavitt on 11:09 AM with Status of Final Mendel Leavitt MD electronically signed on 01/22/2024 11:09:30 AM with status of Final
--- NOTE | 2024-01-08 12:54 | MHC.SHP ---
Pre-Procedural Eval Section A - 24 Hr Update-Section A only Date of Service: 01/08/24 The patient is an INPATIENT: No Changes since office visit: Yes Patient answered all questions; No Cold of Flu in the past 2 weeks, No New Medical Problems and No Changes in Medication The patient has been examined within 24 hours of the surgical procedure. The History & Physical has been completed within 30 days and I have reviewed it.: Yes Section B - Complete if H&P > 30 days Chief Complaint: Nonrheumatic mitral (valve) insufficiency Allergies: Allergies Allergy/AdvReac Type Severity Reaction Status Date / Time latex Allergy Rash Verified 01/08/24 09:51 Sulfa (Sulfonamide Allergy Itching Verified 01/08/24 09:51 Antibiotics) Plan I have reviewed the history and physical and performed a pertinent physical examination on my patient. No changes have occurred unless specified. Time Spent With Patient Time: Total time managing care of this patient today ____ minutes.
[2024-01-08 13:28] VITALS: BP 120/80; PULSE 73; RESP 16; TEMP 36.5; O2SAT 98
[2024-01-08 13:43] VITALS: BP 124/82; PULSE 66; RESP 17; O2SAT 96
[2024-01-08 14:00] VITALS: BP 149/98; PULSE 62; RESP 17; TEMP 36.1; O2SAT 97
== END 2024-01-08 15:16 | disposition home or self-care (01) ==
PROVIDERS: PCP Internal Medicine; Visit Provider Internal Medicine Cardiovascular Disease
PROC: (CPT 93312; principal; 2024-01-08 12:30)
DX: I34.0 Nonrheumatic mitral (valve) insufficiency (principal); I25.10 Atherosclerotic heart disease of native coronary artery without angina pectoris; E78.00 Pure hypercholesterolemia, unspecified; Z79.82 Long term (current) use of aspirin; Z79.899 Other long term (current) drug therapy; Z88.2 Allergy status to sulfonamides; Z91.040 Latex allergy status; Z98.890 Other specified postprocedural states
CPT/HCPCS: 93312; J2704

== ENCOUNTER → 2024-01-08 12:17 | Outpatient (BNV) | payer OTHER, SELFPAY | PROVIDERS: PCP Internal Medicine; Visit Provider Internal Medicine Cardiovascular Disease | DX: I34.0 Nonrheumatic mitral (valve) insufficiency (principal); I34.81 Nonrheumatic mitral (valve) annulus calcification | CPT/HCPCS: 76376; 93312; 93320; 93325 ==

== ENCOUNTER 2024-02-19 14:09 | Outpatient (AMB) | payer OTHER, SELFPAY ==
[2024-02-19 14:10] VITALS: BP 130/82; PULSE 83; O2SAT 98; BMI 29.8
--- NOTE | 2024-02-19 14:10 | A.OFFVIS_ITS ---
Vital Signs 02/19/24 14:10 Height 5 ft 11 in Weight 214 lb BMI 29.8 BP 130/82 Blood Pressure Location Rt brachial Position Sitting Pulse 83 Pulse Source Pulse Oximeter Pulse Oximetry (%) 98 Oxygen Delivery Method Room Air Intake Visit Reasons: [id number] Intake Note: Patient presents for NAVEEN. patient wakes up frequently not sleeping well. Allergies latex Allergy (Verified 02/19/24 14:14) Rash Sulfa (Sulfonamide Antibiotics) Allergy (Verified 02/19/24 14:14) Itching Medication List - Last Reconciled 02/19/24 by LIZ Parikh aspirin (Ecotrin Low Strength) 81 mg PO DAILY atorvastatin 80 mg PO DAILY celecoxib 200 mg PO DAILY ezetimibe (Zetia) 10 mg PO DAILY losartan 25 mg PO DAILY multivitamin (Daily Multi-Vitamin tablet) 1 tab PO DAILY HPI Comments Details: 73-yr-old male presents for new in-person patient visit for sleep consultation. Patient reports that about 2 yrs ago, he started having gasping arousals, frequent nighttime arousals- now waking up 4-5 times per night. Pt also notes h/o HTN, CAD with prior myocardial infarction and recent echocradi ogram finding c/w moderate mitral regurgitation. Pt's BP ranges from normal to HTNsive- BP 149/98 on 01/08/24. He is f/b cardiology. Sleep questionnaire: Have you ever been diagnosed with a sleep disorder? No Have you ever had a sleep study in the past? No Have you ever been treated for a sleep disorder? No Do you take medications for a sleep disorder? No Do you snore? Yes Do you wake up gasping at night? Yes Do you have episodes of apneas? No If yes, are they witnessed? n/a Do you have episodes of nocturnal chest pain or dyspnea? Denies chest pain. But feels SOB w/ the gasping arousals. Do you have difficulty initiating sleep? no Do you have difficulty maintaining sleep? yes Wakes up 4-5per night. Do you wake up tired? sometimes Do you have headaches upon awakening? no Do you wake up with dry mouth or throat? yes Do you have GERD? no Do you have nocturia? just once Do you have nocturnal leg cramps? no Do you have symptoms of restless legs? Tends to tap his foot Do you act out your dreams? no Do you have sleep paralysis? no Do you have drop attacks? no Do you ever have hypnogenic hallucinations? no- but has vivid dreams. Do you have bruxism? Not sure. Hypersomnolence questionnaire: Do you have daytime tiredness or fatigue? sometimes Do you easily fall asleep when inactive? sometimes Have you ever had episodes of sudden weakness? no Have you ever had episodes of sudden weakness associated with strong emotions? no Sleep hygiene questionnaire: What is your usual sleep routine? Usual bedtime is at 10pm; Usual wake-up time is at 3-4am. Do you take naps? No Is your sleep environment cool, dark, and quiet? yes Do you exercise? not as much since his knee has been bothering him. has a foot pedaler. is active in his garden etc. Do you take caffeine or other stimulants? Green tea 2-3 x's per day, occasionally takes coffee. Do you use electronics in bed? May fall asleep watching Tv What is your work schedule? Retired [employer] Medical History CAD (coronary artery disease) H/O angiography Seborrhea capitis Constipation Hypercholesterolemia Surgical History History of esophagogastroduodenoscopy (EGD) H/O colonoscopy History of prostatectomy History of appendectomy Family History Father No problems noted. Mother No problems noted. Social History Household Members: Spouse and Children Housing: House Alcohol intake: never Patient Tobacco Use Status: Never used Tobacco e-Cigarette/Vaping Use: Never Used Second Hand Smoke Exposure: No service: No Current occupational status: retired Physical Exam Vital Signs: Last Vital Signs Pulse 83 02/19/24 14:10 BP 130/82 02/19/24 14:10 Pulse Ox 98 02/19/24 14:10 Oxygen Delivery Method Room Air 02/19/24 14:10 BMI result Body Mass Index 29.8 Const General: no acute distress Orientation/consciousness: patient oriented x3 HEENT Other: Mallampati stage 4 Resp Effort & Inspection: normal respiratory effort and able to speak in complete sentences Auscultation: clear to auscultation bilaterally Cardio Rate: regular rate Rhythm: regular rhythm Neuro General: patient oriented x3 Psych Mental Status: mental status grossly normal Speech and movement: Clear speech present Attitude: cooperative Assessment & Plan Assessment & Plan (1) Excessive daytime sleepiness: Code(s): G47.19 - Other hypersomnia Category: Medical (2) Snoring: Code(s): R06.83 - Snoring Category: Medical (3) Sleep difficulties: Code(s): G47.9 - Sleep disorder, unspecified Category: Medical (4) Hard of hearing: Code(s): H91.90 - Unspecified hearing loss, unspecified ear Category: Medical Plan Pt is advised to undergo in-lab sleep study to assess for sleep apnea in setting of mitral regurgitation, CAD w/ h/o CT, HTN. Will f/u with pt after study to discuss results and appropriate treatment options. Pt to call with any worsening concerns or questions. For hearing deficit- advised pt to have hearing eval for possible hearing aid. Pt seen in c/w Dr Ashely Amin. Orders: Orders RT PSG in-lab sleep study Today G47.19 - Other hypersomnia, G47.9 - Sleep disorder, unspecified, R06.83 - Snoring Coding Level of Care Code New Pt Level 4 (05091) Diagnoses Excessive daytime sleepiness G47.19 Snoring R06.83 Sleep difficulties G47.9 Hard of hearing H91.90 [place] Sleepiness Scale Questions Sitting and reading: high chance of dozing Watching TV: high chance of dozing Sitting inactive in a theater, movie etc.: slight chance of dozing As a passenger in a car for an hour without break: would never doze Lying down in the afternoon when circumstances permit: moderate chance of dozing Sitting and talking to someone: would never doze Sitting quietly after lunch without alcohol: moderate chance of dozing In a car, while stopped for a few minutes in the traffic: would never doze ESS < 10: normal, ESS > 12: pathologic: 11
== END 2024-02-19 15:32 | disposition home or self-care (01) ==
PROVIDERS: PCP Internal Medicine; Visit Provider Nurse Practitioner Family
DX: G47.19 Other hypersomnia (principal); R06.83 Snoring; G47.9 Sleep disorder, unspecified; H91.90 Unspecified hearing loss, unspecified ear
CPT/HCPCS: 99204

== ENCOUNTER → 2024-02-19 14:09 | Outpatient (BNVA) | payer OTHER, SELFPAY | PROVIDERS: PCP Internal Medicine; Visit Provider Nurse Practitioner Family | DX: G47.19 Other hypersomnia (principal); G47.9 Sleep disorder, unspecified; R06.83 Snoring | CPT/HCPCS: 99202 ==

== ENCOUNTER 2024-02-24 10:44 | Outpatient (AMB) | payer OTHER, SELFPAY ==
--- NOTE | 2024-02-24 10:55 | A.OFFVIS_ITS ---
Intake Visit Reasons: OV- Right Knee OA - Last Injection 12/06/23 Intake Note: Josue is a 73 year old male who presents today for a follow up of his right knee OA, Last injection done 12/06/23. Patient reports that this injection was only helpful for about 12 days. At his last visit both options of gel and PRP were discussed, he is interested in trying one of these options Allergies latex Allergy (Verified 02/19/24 14:14) Rash Sulfa (Sulfonamide Antibiotics) Allergy (Verified 02/19/24 14:14) Itching HPI HPI OV- Right Knee OA - Last Injection 12/06/23: Details: Right knee pain with OA. Steroid injections have only been transiently helpful. He has pain at the end of the day and with activity. Most of his pain is medial sided right knee pain. [facility] Medical History CAD (coronary artery disease) H/O angiography Seborrhea capitis Constipation Hypercholesterolemia Surgical History History of esophagogastroduodenoscopy (EGD) H/O colonoscopy History of prostatectomy History of appendectomy Family History Father No problems noted. Mother No problems noted. Social History Household Members: Spouse and Children Housing: House Alcohol intake: never Patient Tobacco Use Status: Never used Tobacco e-Cigarette/Vaping Use: Never Used Second Hand Smoke Exposure: No service: No Current occupational status: retired Physical Exam Extrem Other: Right knee with TTP over medial joint line 0-125 deg motion Office Procedures Joint Injection/Drain Joint Injection/Drain Details: Injected 1 mL of Decadron and 3 mL 1% lidocaine and 3 mL of 0.25% Marcaine. Site was prepped using aseptic technique. Patient tolerated the procedure well. Primary Site: right knee Approach Used: anterolateral Coding 09338 - Large joint Procedure code (CPT) selection complete Assessment & Plan Assessment & Plan (1) Arthritis of right knee: Code(s): M17.11 - Unilateral primary osteoarthritis, right knee Category: Medical Plan: Right knee OA. I injected his right knee. He is going to [facility] next week and I recommend a one time gel injection prior as he will be there for some time and plans oin being active. Coding Level of Care Code Est Pt Level 3 (53067) Diagnoses Arthritis of right knee M17.11 CPT Codes Coding - 09940 Large joint: 49017 - Large joint ([id number])
== END 2024-02-24 13:27 | disposition home or self-care (01) ==
PROVIDERS: PCP Internal Medicine; Visit Provider Orthopaedic Surgery
DX: M17.11 Unilateral primary osteoarthritis, right knee (principal)
CPT/HCPCS: 20610; 99213

== ENCOUNTER → 2024-02-24 10:44 | Outpatient (BNVA) | payer OTHER, SELFPAY | PROVIDERS: PCP Internal Medicine; Visit Provider Orthopaedic Surgery | DX: M17.11 Unilateral primary osteoarthritis, right knee (principal) | CPT/HCPCS: 20610; 99212; J0665; J1100 ==

== ENCOUNTER 2024-02-28 09:51 | Outpatient (REF) | payer OTHER, SELFPAY ==
[2024-02-28 10:50] LABS: Hematocrit 46.7 % (42.0-52.0); Hemoglobin 15.8 g/dl (14.0-18.0); Mean Corpuscular HGB Conc 33.8 g/dl (31.0-36.0); Mean Corpuscular Hemoglobin 26.4 pg (27.0-33.0); Mean Corpuscular Volume 78.1 fL (80.0-98.0); Mean Platelet Volume 10.3 fL (9.4-12.4); Platelet Count 282 X10*3/uL (160-400); Red Blood Count 5.98 X10*6/uL (4.60-5.80); Red Cell Distribution Width 15.4 % (11.0-16.0)
[2024-02-28 11:30] LABS: Anion Gap 13 (12-20); Blood Urea Nitrogen 13 mg/dL (9-16); Calcium 9.8 mg/dL (8.4-10.2); Carbon Dioxide 27 mmol/L (22-29); Chloride 107 mmol/L (96-108); Cholesterol 133 mg/dL (<200); Estimated Glomerular Filt Rate > 60; Glucose Random 97 mg/dL (60-115); HDL Cholesterol 43 mg/dL (>40); LDL Cholesterol Calculated 65 mg/dL (<100); Potassium 4.8 mmol/L (3.3-5.1); Sodium 142 mmol/L (135-145); Triglycerides 128 mg/dL (<150)
[2024-02-28 11:49] LABS: TSH reflex Free T4 2.96 uIU/mL (0.32-4.0)
[2024-03-02 21:09] LABS: CRP High Sensitivity 3.8 mg/L
== END 2024-02-28 09:52 | disposition home or self-care (01) ==
LOC: HO.LAB 09:51
PROVIDERS: PCP Internal Medicine; Visit Provider Internal Medicine Cardiovascular Disease
DX: I25.10 Atherosclerotic heart disease of native coronary artery without angina pectoris (principal); E78.5 Hyperlipidemia, unspecified; N32.0 Bladder-neck obstruction; R31.0 Gross hematuria
CPT/HCPCS: 36415; 80048; 80061; 81003; 84443; 85027; 86141; 99202

== ENCOUNTER 2024-02-28 11:00 | Outpatient (RCR) | payer OTHER, SELFPAY ==
--- NOTE | 2024-02-20 12:24 | MHC.PT.EP ---
[facility] [place] Office [place] Office [place] Office [address] Triny Bassett [address] [phone] F: [phone] F: [phone] F: [phone] F: [phone] Physical Therapy Plan of Care Date of Evaluation: 02/20/24 Date of Surgery: n/a Diagnosis: R knee pain Assessment: 73 y/o male presenting with right knee pain, primarily medial aspect of the knee. He demonstrates an altered gait pattern (R trendelenburg, altered symmetry of pelvis in standing, decreased R stance time, impaired right knee extension ROM, decreased quad control, impaired eccentric quad strength, decreased muscle length of hamstrings, quads, and hip flexors bilaterally, tenderness to palpation, decreased knowledge of body awareness and activation of targeted muscle groups, decreased hip strength, and impaired functional squat ability. Pt will require skilled PT services 2x/week for 3 weeks in order to reduce impairments, improve limitations and implement a comprehensive HEP. Ortho note recommending bicycle and closed chain strengthening. Frequency and Duration: The patient will be seen 2x/week for 3 weeks Short Term Goals: 1. Pt to improve knee extension ROM by at least 10 degrees from IE in 2 weeks. 2. Pt to report less than 5/10 pain with standing tasks in 2 weeks. Fur Tinter Goals: Pt to improve LEFI by at least 12 points. (IE: 51/80) Pt to demonstrate I with HEP Pt to demonstrate no tenderness to palpation Treatment Plan: Modalities to reduce pain, spasms and effusion. Manual therapy to restore motion and function. Therapeutic exercise to improve strength and flexibility. Neuromuscular re-education for posture and balance. Therapeutic activities to return to functional activities of daily living. Electronically signed by: Meena Pradhan DPT Please sign and return to therapist. Thank you for your referral.
--- NOTE | 2024-02-28 13:43 | MHC.PT.DC ---
[facility] [place] Office [place] Office [place] Office [address] Triny Bassett [address] [facility] [phone] F: [phone] F: [phone] F: [phone] F: [phone] Physical Therapy Discharge Report Diagnosis: R knee pain Date of Surgery: n/a Date of Evaluation: 02/20/24 Date of Discharge: 02/28/24 Treatments to Date: 3 Cancellations to Date: No Shows to Date: Discharge Status: Improved Function Independent with HEP Discharge Summary: Josue was only able to attend 3 apts before leaving on a 2 month trip though reports with a basic program he is already feeling much better with walking, he has met many of his therapeutic goals and is in agreement with DC. Electronically signed by: Braulio Veronica PT. Please sign and return to therapist. Thank you for your referral.
== END 2024-02-28 13:41 | disposition home or self-care (01) ==
LOC: HO.PT 11:00
PROVIDERS: PCP Internal Medicine; Visit Provider Orthopaedic Surgery
DX: M17.11 Unilateral primary osteoarthritis, right knee (principal)
CPT/HCPCS: 97110; 97140; 97161

== ENCOUNTER 2024-02-28 13:49 | Outpatient (AMB) | payer OTHER, SELFPAY ==
--- NOTE | 2024-02-28 14:51 | MHC.OFFVIS ---
Intake Visit Reasons: bilateral testicular cysts Intake Note: New patient is present for Testicular Cysts/Gross Hematuria Patient stated testicular pain has been on for 3 months (Pain came out of nowhere) Patient states that he is still having blood clots in urine Currently on Aspirin Crime Scene Investigator Required: No Allergies latex Allergy (Verified 02/28/24 15:03) Rash Sulfa (Sulfonamide Antibiotics) Allergy (Verified 02/28/24 15:03) Itching HPI Comments Details: Josue is a pleasant male of sub [place] descent. He is a patient Dr. Hartman. He has seen for the following urologic conditions - gross hematuria Gross hematuria Prior history of prostate procedure in [place] 2012. Discussed likelihood of recurrent prostate growth Has been on aspirin No workplace exposure to chemicals - retired [employer] Recommend office cystoscopy Dutasteride provided for control of bleeding and short-term PFSH Medical History CAD (coronary artery disease) H/O angiography Seborrhea capitis Constipation Hypercholesterolemia Surgical History History of esophagogastroduodenoscopy (EGD) H/O colonoscopy History of prostatectomy History of appendectomy Family History Father No problems noted. Mother No problems noted. Social History Household Members: Spouse and Children Housing: House Alcohol intake: never Patient Tobacco Use Status: Never used Tobacco e-Cigarette/Vaping Use: Never Used Second Hand Smoke Exposure: No service: No Current occupational status: retired Review of Systems Const Denies chills and Denies fever(s) Card Reports no additional complaints and Denies syncope Resp Denies cough GI Denies abdominal pain and Denies heartburn Reports as per HPI and Denies change in libido Neuro Denies syncope Psych Denies change in libido Endo Denies change in libido Physical Exam Const General: cooperative, healthy appearing, comfortable and no acute distress Orientation/consciousness: patient oriented x3 HEENT Face and sinus: Yes normal facial exam Mouth: moist mucous membranes Neck Neck: Yes normal visual inspection, Yes full ROM and Yes trachea midline Chest Chest palpation & inspection: normal inspection of the chest Resp Effort & Inspection: normal respiratory effort, able to speak in complete sentences and no respiratory distress GI Inspection: Yes normal to inspection Back/Spine/Pelvis Cervical Spine: normal cervical lordosis Thoracic/Lumbar Spine: thoracic and lumbar spine normal to inspection Skin General skin exam: no rashes or lesions noted Neuro General: patient oriented x3, gait normal, tone normal and moves all extremities Extrem General: Yes normal to inspection and Yes capillary refill normal Results AMB Urinalysis, Automated UA Leukoctes 0 Stoney/uL Last Edit by Kusum Ly Matthew on 02/28/24 15:09 UA Nitrite Negative Last Edit by Kusum Ly A on 02/28/24 15:09 UA Urobilinogen 0.2 mg/dL Last Edit by Kusum Ly A on 02/28/24 15:09 UA Protein 15 mg/dL Last Edit by Kusum Ly A on 02/28/24 15:09 UA pH 6.5 Last Edit by Kusum Ly A on 02/28/24 15:09 UA Blood 10 [place]/uL Last Edit by Kusum Ly [facility] on 02/28/24 15:09 UA Specific Herod 1.015 Last Edit by Kusum Ly [facility] on 02/28/24 15:09 UA Ketone Negative Last Edit by Kusum Ly [facility] on 02/28/24 15:09 UA Bilirubin 0 mg/dL Last Edit by Kusum Ly A on 02/28/24 15:09 UA Glucose 0 mg/dL Last Edit by Kusum Ly [facility] on 02/28/24 15:09 Assessment & Plan Assessment & Plan (1) Bladder outlet obstruction: Code(s): N32.0 - Bladder-neck obstruction Category: Medical (2) Gross hematuria: Code(s): R31.0 - Gross hematuria Category: Medical Plan Office cystoscopy Orders: Orders AMB Urinalysis Automated Today Z13.9 - Encounter for screening, unspecified Medications: New dutasteride 0.5 mg PO DAILY 90 days 90 caps 1RF N13.8 - Other obstructive and reflux uropathy, N40.1 - Benign prostatic hyperplasia with lower urinary tract symptoms, R31.0 - Gross hematuria Patient Instructions: Imaging studies, laboratory and physical exam results were discussed and reviewed in detail. No major barriers to patient understanding were identified. An opportunity to ask questions regarding the treatment plan was provided. All questions were answered. The patient expressed understanding and agreement with the above treatment plan. The patient is aware they should contact our office by phone for worsening of their current condition or the appearance of new urologic symptoms. Compliance is encouraged with any medications and followup testing that is ordered. It is a privilege to participate in the urologic care of your patient. If you have any questions or concerns regarding treatment for the above conditions, or other urologic issues, please do not hesitate to contact me. The office telephone contact is [phone]. This note is constructed using voice recognition software. While every effort has been made to ensure accuracy tumble tailstock turret lathe operator errors may have been included. Yours sincerely, Dr Jake Gerber MD, [facility] - Urology Providers of Expert, Compassionate Care for the Genitourinary System Coding Level of Care Code New Pt Level 4 (54935) Diagnoses Bladder outlet obstruction N32.0 Gross hematuria R31.0
== END 2024-02-28 15:13 | disposition home or self-care (01) ==
PROVIDERS: PCP Internal Medicine; Visit Provider Urology
DX: N32.0 Bladder-neck obstruction (principal); R31.0 Gross hematuria; Z13.9 Encounter for screening, unspecified
CPT/HCPCS: 99204

== ENCOUNTER 2024-05-28 09:21 | Outpatient (AMB) | payer OTHER, SELFPAY ==
--- NOTE | 2024-05-28 09:27 | MHC.OFFVIS ---
Intake Visit Reasons: OV- RT knee OA Intake Note: Josue is a 73 year old male who presents today for a follow up of his right knee OA. Last injection was administered on 02/24/2024. Patient reports that the last injection was helpful, his pain has returned over the last month. he would like to repeat injection today Allergies latex Allergy (Verified 02/28/24 15:03) Rash Sulfa (Sulfonamide Antibiotics) Allergy (Verified 02/28/24 15:03) Itching HPI HPI OV- RT knee OA: Details: Josue is a 73 year old male who presents today for a follow up of his right knee OA. Last injection was administered on 02/24/2024. Patient reports that the last injection was helpful, his pain has returned over the last month. he would like to repeat injection today PFSH Medical History CAD (coronary artery disease) H/O angiography Seborrhea capitis Constipation Hypercholesterolemia Surgical History History of esophagogastroduodenoscopy (EGD) H/O colonoscopy History of prostatectomy History of appendectomy Family History Father No problems noted. Mother No problems noted. Social History Household Members: Spouse and Children Housing: House Alcohol intake: never Patient Tobacco Use Status: Never used Tobacco e-Cigarette/Vaping Use: Never Used Second Hand Smoke Exposure: No service: No Current occupational status: retired Physical Exam Extrem Other: Right knee with TTP over medial joint line 0-125 deg motion Office Procedures Joint Injection/Aspiration Joint Injection/Aspiration Details: Injected 1 mL of Decadron and 3 mL 1% lidocaine and 3 mL of 0.25% Marcaine. Site was prepped using aseptic technique. Patient tolerated the procedure well. Primary Site: right knee Approach Used: anterolateral Coding 02273 - Large joint Procedure code (CPT) selection complete Assessment & Plan Assessment & Plan (1) Arthritis of right knee: Code(s): M17.11 - Unilateral primary osteoarthritis, right knee Category: Medical Plan: This is a 73-year-old gentleman with right knee osteoarthritis. I reviewed his imaging and the at the anatomy with him. We discussed nonsurgical and surgical treatment options. At this point he would like a repeat injection and I injected his right knee. He may follow up in 3 months. Coding Level of Care Code Est Pt Level 4 (35842) Diagnoses Arthritis of right knee M17.11 CPT Codes Coding - 01566 Large joint: 42858 - Large joint ([id number])
== END 2024-05-28 09:39 | disposition home or self-care (01) ==
PROVIDERS: PCP Internal Medicine; Visit Provider Orthopaedic Surgery
DX: M17.11 Unilateral primary osteoarthritis, right knee (principal)
CPT/HCPCS: 20610; 99214

== ENCOUNTER → 2024-05-28 09:21 | Outpatient (BNVA) | payer OTHER, SELFPAY | PROVIDERS: PCP Internal Medicine; Visit Provider Orthopaedic Surgery | DX: M17.11 Unilateral primary osteoarthritis, right knee (principal) | CPT/HCPCS: 20610; 99212; J0665; J1100 ==

== ENCOUNTER 2024-05-29 12:44 | Outpatient (AMB) | payer OTHER, SELFPAY ==
--- NOTE | 2024-05-29 12:52 | MHC.OFFVIS ---
Intake Visit Reasons: cysto Intake Note: Patient is present for Cystoscopy Urology Medication:dutasteride Antibiotic Allergy:sulfa Blood Thinner:aspirin Lot:[id number] Exp:07/20/27 Regulatory Affairs Assistant Required: No Allergies latex Allergy (Verified 05/29/24 12:53) Rash Sulfa (Sulfonamide Antibiotics) Allergy (Verified 05/29/24 12:53) Itching HPI Comments Details: Josue is a pleasant male of sub continental descent. He is a patient Dr. Hartman. He has seen for the following urologic conditions - gross hematuria Cystoscopy in office Recurrent prostate Recommend GreenLight laser Has noticed worsening strength of stream Gross hematuria Prior history of prostate procedure in [place] 2012. Discussed likelihood of recurrent prostate growth Has been on aspirin No workplace exposure to chemicals - retired [employer] Recommend office cystoscopy Dutasteride provided for control of bleeding and short-term PFSH Medical History CAD (coronary artery disease) H/O angiography Seborrhea capitis Constipation Hypercholesterolemia Surgical History History of esophagogastroduodenoscopy (EGD) H/O colonoscopy History of prostatectomy History of appendectomy Family History Father No problems noted. Mother No problems noted. Social History Household Members: Spouse and Children Housing: House Alcohol intake: never Patient Tobacco Use Status: Never used Tobacco e-Cigarette/Vaping Use: Never Used Second Hand Smoke Exposure: No service: No Current occupational status: retired Review of Systems Const Denies chills and Denies fever(s) Card Reports no additional complaints and Denies syncope Resp Denies cough GI Denies abdominal pain and Denies heartburn Reports as per HPI and Denies change in libido Neuro Denies syncope Psych Denies change in libido Endo Denies change in libido Physical Exam Const General: cooperative, healthy appearing, comfortable and no acute distress Orientation/consciousness: patient oriented x3 HEENT Face and sinus: Yes normal facial exam Mouth: moist mucous membranes Neck Neck: Yes normal visual inspection, Yes full ROM and Yes trachea midline Chest Chest palpation & inspection: normal inspection of the chest Resp Effort & Inspection: normal respiratory effort, able to speak in complete sentences and no respiratory distress GI Inspection: Yes normal to inspection Back/Spine/Pelvis Cervical Spine: normal cervical lordosis Thoracic/Lumbar Spine: thoracic and lumbar spine normal to inspection Skin General skin exam: no rashes or lesions noted Neuro General: patient oriented x3, gait normal, tone normal and moves all extremities Extrem General: Yes normal to inspection and Yes capillary refill normal Office Procedures Cystoscopy Consent Discussed risk and benefit or proposed procedure with the patient. Information consent for procedure given to the patient. Discussed technical aspects, risks, benefits and alternatives in full. Addressed all of the patient's questions and concerns regarding the procedure. The patient demonstrated knowledge and understanding. They wish to proceed with this procedure. Preparation The patient was prepped in the usual manner. A career placement specialist was present and in the room. Genitalia was prepped with betadine solution in a sterile manner. Lidocaine Jelly 2% was placed into the urethra and 16Fr flexible Olympus cystoscope was inserted into the meatus after adequate lubrication. Procedure Cystoscopy performed using a disposable Urovue digital 16 American cystoscope. Meatus non circumcised Urethra anterior and posterior urethra normal Prostatic Urethra prostatic regrowth right lateral and superior Bladder examination with retroflexion of cystoscope Bladder Orifices normal shape and position Bladder Capacity medium Trabeculations - Cellule Formation - Diverticulum Formation - Mucosal Erythema - Bladder Tumor - [id number]-[id number] DISPOSABLE SCOPE URO-G FLEXIBLE SCOPE Procedure code (CPT) selection complete Office Meds lidocaine HCl 2 % mucosal jelly in applicator Performing Provider: Jake Gerber MD Performing Location: [facility] [facility] Administered by: Edmundo Cardenas LPN on 05/29/24 13:09 Dose Route Admin Location Dispensed Lot Number Expiration Date [facility] [place] Service Station Operator 10 mL intra-urethral 10 mL nitrofurantoin monohydrate/macrocrystals 100 mg capsule Performing Provider: Jake Gerber MD Performing Location: [facility] [place] [facility] Administered by: Edmundo Cardenas LPN on 05/29/24 13:09 Dose Route Admin Location Dispensed Lot Number Expiration Date [facility] [place] Service Station Operator 100 mg PO 1 cap naproxen 500 mg tablet Performing Provider: Jake Gerber MD Performing Location: [facility] [place] [facility] Administered by: Edmundo Cardenas LPN on 05/29/24 13:09 Dose Route Admin Location Dispensed Lot Number Expiration Date [facility] Service Station Operator 500 mg PO 1 tab Results AMB Urinalysis, Automated UA Leukoctes 0 Stoney/uL Last Edit by YENY Tao on 05/29/24 13:08 UA Nitrite Negative Last Edit by YENY Tao on 05/29/24 13:08 UA Urobilinogen 0.2 mg/dL Last Edit by YENY Tao on 05/29/24 13:08 UA Protein 15 mg/dL Last Edit by YENY Tao on 05/29/24 13:08 UA pH 5.0 Last Edit by Cheryl Lang CCM on 05/29/24 13:08 UA Blood 0 [place]/uL Last Edit by Cheryl Lang CCM on 05/29/24 13:08 UA Specific [place] 1.030 Last Edit by YENY Tao on 05/29/24 13:08 UA Ketone Negative Last Edit by YENY Tao on 05/29/24 13:08 UA Bilirubin 0 mg/dL Last Edit by YENY Tao on 05/29/24 13:08 UA Glucose 0 mg/dL Last Edit by Cheryl Lang [facility] on 05/29/24 13:08 Results Reviewed Results Reviewed: Laboratory Last Values Urine pH (Auto) 5.0 05/29/24 13:08 Specific [place] (Auto) 1.030 05/29/24 13:08 Urine Protein (Auto) 15 mg/dL 05/29/24 13:08 Glucose (UA)(Auto) 0 mg/dL 05/29/24 13:08 Urine Ketones (Auto) Negative 05/29/24 13:08 Urine Blood (Auto) 0 [place]/uL 05/29/24 13:08 Urine Nitrite (Auto) Negative 05/29/24 13:08 Urine Bilirubin (Auto) 0 mg/dL 05/29/24 13:08 Urine Urobilinogen (Auto) 0.2 mg/dL 05/29/24 13:08 Leukocyte Esterase (Auto) 0 Stoney/uL 05/29/24 13:08 Assessment & Plan Assessment & Plan (1) Bladder outlet obstruction: Code(s): N32.0 - Bladder-neck obstruction Category: Medical (2) Gross hematuria: Code(s): R31.0 - Gross hematuria Category: Medical Plan We discussed the nature of the decision and reasonable options for performing a prostate intervention. Interventions include TURP, GreenLight laser enucleation of the prostate, GreenLight laser ablation of the prostate, transurethral incision of the prostate, and I-Tend prostate procedure. Options such as medical therapy were discussed. The relative uncertainties and benefits related to each alternate procedure were adequately discussed. General surgical risks including, but not limited to, pain, bleeding, infection, myocardial infarction, pulmonary embolus, deep vein thrombosis and cerebrovascular accident which may result in further hospitalization were discussed. Full disclosure of the procedure as well as all major risks, benefits and complications were discussed including but not limited to damage to the urethra or bladder neck, recurrent BPH, retrograde ejaculation, bladder infection, urge, de juan carlos frequency, incomplete emptying, dysuria, remote chance of erectile dysfunction, epididymitis, and meatal stenosis. The success rate of the procedure was discussed. Success of the procedure in the short-term does not necessarily guarantee that long-term success will be maintained. Suitable follow up will need to be maintained. The patient showed understanding of discussion. An opportunity was provided for questions to be answered and wishes to proceed with the following procedure. - redo GreenLight laser Orders: Orders AMB Urinalysis Automated Today Z13.9 - Encounter for screening, unspecified AMB Cystoscopy Today N32.0 - Bladder-neck obstruction, R31.0 - Gross hematuria Patient Instructions: Imaging studies, laboratory and physical exam results were discussed and reviewed in detail. No major barriers to patient understanding were identified. An opportunity to ask questions regarding the treatment plan was provided. All questions were answered. The patient expressed understanding and agreement with the above treatment plan. The patient is aware they should contact our office by phone for worsening of their current condition or the appearance of new urologic symptoms. Compliance is encouraged with any medications and followup testing that is ordered. It is a privilege to participate in the urologic care of your patient. If you have any questions or concerns regarding treatment for the above conditions, or other urologic issues, please do not hesitate to contact me. The office telephone contact is [phone]. This note is constructed using voice recognition software. While every effort has been made to ensure accuracy software deployment engineer errors may have been included. Yours sincerely, Dr Jake Gerber MD, [facility] - Urology Providers of Expert, Compassionate Care for the Genitourinary System Coding Level of Care Code Est Pt Level 4 (34977) Diagnoses Bladder outlet obstruction N32.0 Gross hematuria R31.0 CPT Codes Cystoscopy - CPT: 59606-[id number] ([id number])
== END 2024-05-29 13:42 | disposition home or self-care (01) ==
PROVIDERS: PCP Internal Medicine; Visit Provider Urology
DX: R31.0 Gross hematuria (principal); N32.0 Bladder-neck obstruction
CPT/HCPCS: 52000; 99214

== ENCOUNTER → 2024-05-29 12:44 | Outpatient (BNVA) | payer OTHER, SELFPAY | PROVIDERS: PCP Internal Medicine; Visit Provider Urology | DX: R31.0 Gross hematuria (principal); N32.0 Bladder-neck obstruction | CPT/HCPCS: 52000; 81003; 99212 ==

== ENCOUNTER → 2024-06-18 20:30 | Outpatient (REF) | payer OTHER, SELFPAY | LOC: HO.SL 20:30 | PROVIDERS: PCP Internal Medicine; Visit Provider Nurse Practitioner Family | DX: G47.19 Other hypersomnia (principal); R06.83 Snoring; G47.9 Sleep disorder, unspecified | CPT/HCPCS: 95810 ==

== ENCOUNTER → 2024-06-18 21:44 | Outpatient (BNV) | payer OTHER, SELFPAY | PROVIDERS: PCP Internal Medicine; Visit Provider Psychiatry & Neurology Neurology | DX: G47.19 Other hypersomnia (principal); R06.83 Snoring | CPT/HCPCS: 95810 ==

== ENCOUNTER 2024-07-20 07:07 | Day surgery (SDC) | payer OTHER, SELFPAY ==
[2024-07-20 08:05] VITALS: BMI 28.6
[2024-07-20 08:16] VITALS: BP 141/82; PULSE 62; RESP 16; TEMP 36.6; O2SAT 98
[2024-07-20] MEDS: Lactated Ringers 1,000 ML 100 ML IVCONT (08:35)
--- NOTE | 2024-07-20 08:36 | MHC.SHP ---
Pre-Procedural Eval Section A - 24 Hr Update-Section A only Date of Service: 07/20/24 The patient is an INPATIENT: No Changes since office visit: No Cold of Flu in the past 2 weeks, No New Medical Problems, No Changes in Medication and No Patient answered all questions The patient has been examined within 24 hours of the surgical procedure. The History & Physical has been completed within 30 days and I have reviewed it.: Yes Section B - Complete if H&P > 30 days Chief Complaint: Benign prostatic hyperplasia with lower urinary tr Details of Present Illness: Greenlight laser Allergies: Allergies Allergy/AdvReac Type Severity Reaction Status Date / Time latex Allergy Rash Verified 07/20/24 08:03 Sulfa (Sulfonamide Allergy Itching Verified 07/20/24 08:03 Antibiotics) Review of Systems Sugical H&P ROS: Negative: Constitution, Cardiovascular, Respiratory, Neurological, Psychiatric, Hem-Onc, Allergic/Immunologic, Gastrointestinal, Genitourinary, Musculoskeletal, Integumentary, Endocrine and Eyes/Ears/Nose/Throat Exam Surgical H&P Exam: Normal: HEENT, Normal: Heart, Normal: Lungs, Normal: Extremities, Normal: Abdomen, Normal: Skin and Normal: Neurological Plan Diagnosis/Plan: Unchanged (Greenlight laser) I have reviewed the history and physical and performed a pertinent physical examination on my patient. No changes have occurred unless specified. Time Spent With Patient Time: Total time managing care of this patient today ____ minutes.
--- NOTE | 2024-07-20 09:55 | P.OP_ITS ---
Operative Note Operative Note Date of Service: 07/20/24 Narrative: PreOperative Diagnosis: Recurrent Bladder outlet obstruction Post Operative Diagnosis: Recurrent Bladder outlet obstruction Procedure: GreenLight Laser Enucleation of the prostate CPT 44282 Surgeon: Dr Jake Gerber Anesthesia: General History of bladder outlet obstruction. Prior TURP many years ago Recurrence of symptoms Office cystoscopy with lateral lobe recurrence Procedure: After informed consent was verified the patient was brought to the operating room and placed in a supine position. Anesthesia was administered per protocol. Patient was placed in modified dorsal lithotomy position and prepped and draped in a sterile fashion. Safety pause time-out was confirmed. Antibiotics have been given. A Twenty-four Azerbaijani laser cystoscope was inserted per urethra. No abnormalities were found of the anterior and bulbar urethra. The prostatic urethra shows recurrent bilateral lobe formation. Median lobe area clear. The bladder was examined and both ureteric orifices were seen in their normal positions away from the area of interest. Bladder trabeculation Grade 1. Using a GreenLight laser with settings of 80 rodriguez the excess tissue and small prostate polyps within previously cleared median lobe area were removed. This p rostate polyp was sent for separate pathology. Starting with the patient's left lateral lobe. First the 05:00 o'clock groove was further developed. This was moved in the lateral direction to undermine the tissue on the lateral side running from the bladder neck to the prostate apex. The ureteric orifice was used to guide incisions. Focus was then placed on the laser at the 1 o'clock position to developing a secondary groove down to the level of bladder fibers. The creation of a second deep groove defined a segment of intervening tissue similar to a slice of orange. At the apex of the prostate the 2 grooves were linked the us releasing the intervening tissue. This tissue was then removed with a combination of enucleation and ablation working from the apex toward the bladder neck. A similar procedure was repeated on the patient's right-hand side. The only differences being the position of the lateral groove at he 7 o'clock position and the secondary groove at the 11 o'clock position, Otherwise the procedure was developed in a mirror fashion. After the majority of tissue had been debulked remnant tissue was ablated with the side fire laser and the curve of the prostate followed up each side wall clearly defining the anterior remnant strip that remained between the 11 and 1 o'clock positions. When this was had been completed debris and pieces of prostate were removed from the bladder with irrigation. Both ureteric orifices were reviewed again in shown to be patent in away from any areas of energy damage. The apical area was reviewed in any stray ooze was controlled. A 22 Azerbaijani 30 cc balloon Parham catheter was placed over a stylet into the bladder. Clear efflux was obtained upon irrigation with a [place] piston syringe. 30 cc was placed in the balloon and gentle traction was placed. A snap was used to hold tension on the catheter to control bleeding during patient moved and transported. A drainage bag was placed. Once transportation is complete to the PACU the snap will be removed. The patient tolerated the procedure well, he was extubated in the operating and transferred in a stable condition to the recovery area. Total Power 79 kW Lasing time 12:09 Pathology: Prostate tissue Drains: Parham catheter
[2024-07-20 10:01] VITALS: BP 121/74; PULSE 68; RESP 18; TEMP 36.2; O2SAT 98
[2024-07-20 10:05] VITALS: BP 119/77; PULSE 68; RESP 18; O2SAT 98
[2024-07-20 10:10] VITALS: BP 125/73; PULSE 64; RESP 18; O2SAT 98
[2024-07-20 10:15] VITALS: BP 125/70; PULSE 65; RESP 18; O2SAT 98
[2024-07-20 10:30] VITALS: BP 128/79; PULSE 67; RESP 16; TEMP 36.1; O2SAT 96
== END 2024-07-20 11:05 | disposition home or self-care (01) ==
PROVIDERS: PCP Internal Medicine; Visit Provider Urology
PROC: (CPT 52648; principal; 2024-07-20 09:00)
DX: N40.1 Benign prostatic hyperplasia with lower urinary tract symptoms (principal); N32.0 Bladder-neck obstruction; R31.0 Gross hematuria; I25.10 Atherosclerotic heart disease of native coronary artery without angina pectoris; E78.00 Pure hypercholesterolemia, unspecified; L21.0 Seborrhea capitis; Z79.899 Other long term (current) drug therapy; Z79.82 Long term (current) use of aspirin; Z88.2 Allergy status to sulfonamides; Z91.040 Latex allergy status; Z90.79 Acquired absence of other genital organ(s); Z98.890 Other specified postprocedural states; R39.12 Poor urinary stream
CPT/HCPCS: 52649; 88305; J1100; J1956; J2003; J2250; J2405; J2704; J3010

== ENCOUNTER → 2024-07-20 07:07 | Outpatient (BNV) | payer OTHER, SELFPAY | PROVIDERS: PCP Internal Medicine; Visit Provider Urology | DX: N32.0 Bladder-neck obstruction (principal) | CPT/HCPCS: 52649 ==

== ENCOUNTER → 2024-07-23 08:26 | Outpatient (BNVA) | payer OTHER, SELFPAY | PROVIDERS: PCP Internal Medicine; Visit Provider Urology | DX: N32.0 Bladder-neck obstruction (principal); R31.0 Gross hematuria | CPT/HCPCS: 51700; 51798 ==

== ENCOUNTER 2024-08-06 11:00 | Outpatient (AMB) | payer OTHER, SELFPAY ==
--- NOTE | 2024-08-06 11:07 | A.OFFVIS_ITS ---
Intake Visit Reasons: Inj-Right knee injection-last inj-05/28/24 Intake Note: Josue is a 73 year old male who presents today for a follow up of his right knee OA. Last injection was administered on 05/28/24. Patient reports that the injection was helpful for a short time but he is traveling to [place] and would like to minimize pain for travel Allergies latex Allergy (Verified 07/20/24 08:03) Rash Sulfa (Sulfonamide Antibiotics) Allergy (Verified 07/20/24 08:03) Itching HPI HPI Inj-Right knee injection-last inj-05/28/24: Details: Josue is a 73 year old male who presents today for a follow up of his right knee OA. Last injection was administered on 05/28/24. Patient reports that the injection was helpful for a short time but he is traveling to [place] and would like to minimize pain for travel [facility] Medical History CAD (coronary artery disease) H/O angiography Seborrhea capitis Constipation Hypercholesterolemia Surgical History History of esophagogastroduodenoscopy (EGD) H/O colonoscopy History of prostatectomy History of appendectomy Family History Father No problems noted. Mother No problems noted. Social History Household Members: Spouse and Children Housing: House Alcohol intake: never Patient Tobacco Use Status: Never used Tobacco e-Cigarette/Vaping Use: Never Used Second Hand Smoke Exposure: No service: No Current occupational status: retired Physical Exam Extrem Other: Right knee with TTP over medial joint line 0-125 deg motion Office Procedures Joint Inj/Aspir; Non-Pain Clin Joint Injection/Drain Details: Injected 1 mL of Decadron and 3 mL 1% lidocaine and 3 mL of 0.25% Marcaine. Site was prepped using aseptic technique. Patient tolerated the procedure well. Shoulders, Hips, Knees, Knee Large Joint Injection [id number]: Right Knee Coding Procedure code (CPT) selection complete Assessment & Plan Assessment & Plan (1) Arthritis of right knee: Code(s): M17.11 - Unilateral primary osteoarthritis, right knee Category: Medical Plan: This is a 73-year-old gentleman with right knee osteoarthritis. I reviewed his imaging and the at the anatomy with him. We discussed nonsurgical and surgical treatment options. At this point he would like a repeat injection and I injected his right knee. He may follow up in 3 months. Coding Level of Care Code Est Pt Level 3 (06678) Diagnoses Arthritis of right knee M17.11 CPT Codes Shoulders, Hips, Knees, - Knee Large Joint Injection : Right Knee ([id number])
== END 2024-08-06 12:00 | disposition home or self-care (01) ==
PROVIDERS: PCP Internal Medicine; Visit Provider Orthopaedic Surgery
DX: M17.11 Unilateral primary osteoarthritis, right knee (principal)
CPT/HCPCS: 20610; 99213

== ENCOUNTER → 2024-08-06 11:00 | Outpatient (BNVA) | payer OTHER, SELFPAY | PROVIDERS: PCP Internal Medicine; Visit Provider Orthopaedic Surgery | DX: M17.11 Unilateral primary osteoarthritis, right knee (principal) | CPT/HCPCS: 20610; 99212; J0665; J1100; J2003 ==

== ENCOUNTER 2024-08-07 09:08 | Outpatient (AMB) | payer OTHER, SELFPAY ==
--- NOTE | 2024-08-07 09:22 | MHC.OFFVIS ---
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 He is a patient Dr. Hartman. He has seen for the following urologic conditions - gross hematuria - lower urinary tract symptoms Follow-up from [facility] Doing well Has occasional scab passage UA essentially negative Six-month follow-up PSA Flying to [facility] in August Gross hematuria/lower urinary tract symptoms Prior history of prostate procedure in [facility] 2012. Discussed likelihood of recurrent prostate growth Has been on aspirin No workplace exposure to chemicals - retired [employer] Office cystoscopy with recurrent prostate tissue Dutasteride provided for control of bleeding and short-term [facility] 08/09 [facility] Medical History CAD (coronary artery disease) H/O angiography Seborrhea capitis Constipation Hypercholesterolemia Surgical History History of esophagogastroduodenoscopy (EGD) H/O colonoscopy History of prostatectomy History of appendectomy Family History Father No problems noted. Mother No problems noted. Social History Household Members: Spouse and Children Housing: House Alcohol intake: never Patient Tobacco Use Status: Never used Tobacco e-Cigarette/Vaping Use: Never Used Second Hand Smoke Exposure: No service: No Current occupational status: retired Review of Systems Const Denies chills and Denies fever(s) Card Reports no additional complaints and Denies syncope Resp Denies cough GI Denies abdominal pain and Denies heartburn Reports as per HPI and Denies change in libido Neuro Denies syncope Psych Denies change in libido Endo Denies change in libido Physical Exam Const General: cooperative, healthy appearing, comfortable and no acute distress Orientation/consciousness: patient oriented x3 HEENT Face and sinus: Yes normal facial exam Mouth: moist mucous membranes Neck Neck: Yes normal visual inspection, Yes full ROM and Yes trachea midline Chest Chest palpation & inspection: normal inspection of the chest Resp Effort & Inspection: normal respiratory effort, able to speak in complete sentences and no respiratory distress GI Inspection: Yes normal to inspection Back/Spine/Pelvis Cervical Spine: normal cervical lordosis Thoracic/Lumbar Spine: thoracic and lumbar spine normal to inspection Skin General skin exam: no rashes or lesions noted Neuro General: patient oriented x3, gait normal, tone normal and moves all extremities Extrem General: Yes normal to inspection and Yes capillary refill normal Results AMB Urinalysis, Automated UA Leukoctes 15 Stoney/uL Last Edit by Kusum Ly Matthew on 08/07/24 09:34 UA Nitrite Negative Last Edit by Kusum Ly [facility] on 08/07/24 09:34 UA Urobilinogen 0.2 mg/dL Last Edit by Kusum Ly [facility] on 08/07/24 09:34 UA Protein 15 mg/dL Last Edit by Kusum Ly [facility] on 08/07/24 09:34 UA pH 6.0 Last Edit by Kusum Ly [facility] on 08/07/24 09:34 UA Blood 200 [place]/uL Last Edit by Kusum Ly [facility] on 08/07/24 09:34 UA Specific [place] 1.020 Last Edit by Kusum Ly [facility] on 08/07/24 09:34 UA Ketone Negative Last Edit by Kusum Ly [facility] on 08/07/24 09:34 UA Bilirubin 0 mg/dL Last Edit by Kusum Ly [facility] on 08/07/24 09:34 UA Glucose 0 mg/dL Last Edit by Kusum Ly [facility] on 08/07/24 09:34 Assessment & Plan Assessment & Plan (1) Bladder outlet obstruction: Code(s): N32.0 - Bladder-neck obstruction Category: Medical (2) Gross hematuria: Code(s): R31.0 - Gross hematuria Category: Medical Plan Six-month follow-up PSA Orders: Orders AMB Urinalysis Automated Today Z13.9 - Encounter for screening, unspecified Prostate Specific Antigen 6 Months N32.0 - Bladder-neck obstruction Patient Instructions: Imaging studies, laboratory and physical exam results were discussed and reviewed in detail. No major barriers to patient understanding were identified. An opportunity to ask questions regarding the treatment plan was provided. All questions were answered. The patient expressed understanding and agreement with the above treatment plan. The patient is aware they should contact our office by phone for worsening of their current condition or the appearance of new urologic symptoms. Compliance is encouraged with any medications and followup testing that is ordered. It is a privilege to participate in the urologic care of your patient. If you have any questions or concerns regarding treatment for the above conditions, or other urologic issues, please do not hesitate to contact me. The office telephone contact is [phone]. This note is constructed using voice recognition software. While every effort has been made to ensure accuracy milk truck driver errors may have been included. Yours sincerely, Dr Jake Gerber MD, [facility] - Urology Providers of Expert, Compassionate Care for the Genitourinary System Coding Level of Care Code Est Pt Level 3 (77031) Diagnoses Bladder outlet obstruction N32.0 Gross hematuria R31.0
== END 2024-08-07 09:56 | disposition home or self-care (01) ==
PROVIDERS: PCP Internal Medicine; Visit Provider Urology
DX: N32.0 Bladder-neck obstruction (principal); R31.0 Gross hematuria; Z13.9 Encounter for screening, unspecified
CPT/HCPCS: 99024

== ENCOUNTER → 2024-08-07 09:08 | Outpatient (BNVA) | payer OTHER, SELFPAY | PROVIDERS: PCP Internal Medicine; Visit Provider Urology | DX: R31.0 Gross hematuria (principal); N32.0 Bladder-neck obstruction | CPT/HCPCS: 81003; 99212 ==

== ENCOUNTER 2025-01-13 10:20 | Outpatient (REF) | payer MEDICAID, SELFPAY ==
[2025-01-13 11:01] LABS: MANUAL DIFF FLAG NO
[2025-01-13 11:06] LABS: Basophils Percent Auto 0.5 % (0-2); Eosinophils Absolute Auto 0.3 X10*3/uL (0.0-0.4); Eosinophils Percent Auto 3.1 % (0-4); Hemoglobin 15.8 g/dl (14.0-18.0); Imm Gran Abs Auto 0.02 X10*3/uL (0.00-0.03); Imm Gran Pct Auto 0.2 % (0.0-0.4); Lymphocytes Absolute Auto 2.5 X10*3/uL (1.2-4.9); Lymphocytes Percent Auto 30.6 % (20-40); Mean Corpuscular HGB Conc 32.9 g/dl (31.0-36.0); Mean Corpuscular Hemoglobin 26.1 pg (27.0-33.0); Mean Corpuscular Volume 79.3 fL (80.0-98.0); Mean Platelet Volume 9.7 fL (9.4-12.4); Monocytes Absolute Auto 0.5 X10*3/uL (0.1-1.2); Monocytes Percent Auto 5.8 % (2-11); Neutrophils Percent Auto 59.8 % (45-73); Platelet Count 254 X10*3/uL (160-400); Red Blood Count 6.05 X10*6/uL (4.60-5.80); Red Cell Distribution Width 15.6 % (11.0-16.0); White Blood Count 8.3 X10*3/uL (4.8-10.8)
[2025-01-13 11:16] LABS: Estimated Average Glucose 128 mg/dL; Hemoglobin A1C 172.7703 umol/L; Hemoglobin A1c % 6.1 % (<6.0); Total Hemoglobin (HGBA1C) 4049.8632 umol/L
--- OUTSIDE RECORDS SUMMARY | 2025-01-13 11:40 | XMS_ITS | Encounter Summary ---
Author Organization [employer] Address [address] [facility] [address] [place] [address] Care Team Providers Care Chenille Machine Operator Name Role Phone Justice Ovalle MD Primary Care Prov ider Reason for Visit * Reason Onset Date Comments Appointment Request 12/23/2024 Encounter Details Date Type Department Care Team (Late st Contact Info) Description 12/23/2024 Telephone [facility] MED[facility] [address] [place] [address] Justice Ovalle MD [address] [place] [address] Appointment Request Social History Tobacco Use Types Packs/Day Years Used Date Smoking Tobacco: Never Smokeless Tobacco: Never Alcohol Use Standard Drinks/Week Comments Never 0 (1 standard drink = 0.6 oz pur e alcohol) Depression Answer Date Recorded Patient Health Questionnaire-9 Score 0 05/27/2024 Patient Health Questionnaire-9 Score 0 05/27/2024 Last PHQ-9: Questionnaire Data Not on file 0 05/27/2024 Housing Stability Answer Date Recorded What is your housing situation today? I have tiera bonilla 05/27/[address] you li ve. Do you have problems with any of the following? None of the above 05/27/2024 Food Insecurity Answer Date Recorded Within the past 12 months, y ou worried that your food would run out before you got money to buy more: Never True 05/27/2024 Within the past 12 months,th e food you bought just didn't last and you didn't have enough money to get more: Never True 07/2024 Transportation Answer Date Recorded In the past 12 months, has l ack of transportation kept you from medical appts, meetings, work or from getting things needed for daily living? No 05/27/2024 Utilities Answer Date Recorded In the past 12 months, has t he electric, gas, oil or water company threatened to shut off services in your home? No 05/27/2024 Depression Answer Date Recorded Patient Health Questionnaire-2 Score 0 05/27/2024 Internet Access Answer Date Recorded Internet Access Q1 Yes 05/27/2024 Internet Access Q2 Not on file 05/27/2024 Sex and Gender Information Value Date Recorded Sex Assigned at Male 07/16/2022 10:39 AM EDT Legal Sex Male 10:39 AM EDT Gender Identity Male 07/16/2022 10:39 AM EDT Sexual Orientation Straight 07/16/2022 10 :39 AM EDT documented as of this encounter Miscellaneous Notes * Telephone Encounter - Anitra Leo - 12/23/2024 12:36 PM EDT Pt 2 of 2 Tc from pt requesting schedule physical appt. documented in this encounter Plan of Treatment Not on file documented as of this encounter Visit Diagnoses Not on filedocumented in this encounter Additional Health Concerns Assessment Noted Time PHQ-9 Depression Total Score: 0 05/27/20 24 2:11 PM EDT documented as of this encounter Care Teams Chenille Machine Operator Relationship Specialty Start Date End Date Justice Ovalle MD [address] [place] [id number] PCP - General Internal Medicine 09/27/23 documented as of this encounter
--- OUTSIDE RECORDS SUMMARY | 2025-01-13 11:40 | XMS_ITS | Encounter Summary ---
Author Organization [employer] Address [address] [place] [address] Care Team Providers Care Drapery Rod Assembler Name Role Phone Justice Ovalle MD Primary Care Prov ider Encounter Details Date Type Department Care Team (Late st Contact Info) Description 06/05/2024 Orders Only [facility]EDS [address] [place] [address] ProviderJoseph MD Social History Tobacco Use Types Packs/Day Years [...] is your housing situation today? I have tieramike bonilla 05/27/[address] you [...] AM EDT documented as of this encounter Plan of Treatment Not on file documented as of this encounter Procedures Procedure Name Priority Date/Time Associated Diagnosis Comments COLONOSCOPY Routine 11/16/2020 4:19 PM EST EGD Routine 11/16/2020 4:19 PM EST documented in this encounter Results * EGD (11/16/2020 4:19 PM EST) Anatomical Region Laterality Modality Endoscopy us Historical Provider ENDOSCOPY PROCEDURE ORDER KIRSTEN Final Result * Colonoscopy (11/16/2020 4:19 PM EST) Anatomical Region Laterality Modality Endoscopy us Historical Provider MD ENDOSCOPY PROCEDURE ORDER KIRSTEN Final Result documented in this encounter Visit Diagnoses Not on filedocumented in this encounter Additional Health Concerns Assessment Noted Time PHQ-9 Depression Total Score: 0 05/27/20 24 2:11 PM EDT documented as of this encounter Care Teams Drapery Rod Assembler Relationship Specialty Start Date End Date Justice Ovalle MD [address] [place] [id number] PCP - General Internal Medicine 09/27/23 documented as of this encounter
--- OUTSIDE RECORDS SUMMARY | 2025-01-13 11:40 | XMS_ITS | Encounter Summary ---
Author Organization [employer] [facility] Address [address] [facility] [address] [place] [address] Care Team Providers Care Circular Ripsaw Operator Name Role Phone Justice Ovalle MD Primary Care Prov ider Reason for Referral * Consultation (Routine) - Closed Specialty Diagnoses / Procedures Referred By Tammy chu Referred To Contact Physical Therapy Diagnoses Chronic pain of both knees Justice Ovalle MD [address] [place] [address] Phone: tel: fax: [facility] [address] [place] [address] Phone: tel: fax: Referral ID Status Reason Start Date Expiration Date V isits Requested Visits Authorized [id number] Closed Specialty Services Required 01/12/2025 01/12/2026 1 1 * Consultation (Routine) - Authorized Specialty Diagnoses / Procedures Referred By Tammy chu Referred To Contact Audiology Diagnoses Mixed conductive and sensorineural hearing loss of both ears Justice Ovalle MD [address] [place] [address] Phone: tel: fax: [facility] Audiology [address] [place] [address] Phone: tel: fax: Referral ID Status Reason Start Date Expiration Date Visits Requested Visits Authorized [id number] Authorized Specialty Services Required 01/12/2025 01/12/2026 1 1 Encounter Details Date Type Department Care Team (Latest Contact Info) Description 01/12/2025 2:45 PM EDT Telemedicine [facility] MED [facility] PEDS [address] [place] [address] Justice Ovalle MD [address] [place] [address] Primary hypertension (Primary Dx); Mixed conductive and sensorineural hearing loss of both ears; Chronic pain of both knees; Vitamin D deficiency Social History Tobacco Use Types Packs/Day Years [...] AM EDT documented as of this encounter Progress Notes * Justcie Hartman MD - 01/12/2025 2:45 PM EDT Subjective Patient ID: Josue Warner is a 74 y.o. male who presents for No chief complaint on file.. Hypertension This is a chronic problem. The problem is controlled. Pertinent negatives include no chest pain, headaches, palpitations or shortness of breath. Review of Systems Respiratory: Negative for shortness of breath. Cardiovascular: Negative for chest pain and palpitations. Neurological: Negative for headaches. Objective Physical Exam Neurological: General: No focal deficit present. Mental Status: He is oriented to person, place, and time. Psychiatric: Mood and Affect: Mood normal. Behavior: Behavior normal. Assessment/Plan Problem List Items Addressed This Visit Primary hypertension - Primary Could not provide today results, but refer maintain below 140/90, no changes will be made, continuelow sodium diet and exercise as tolerated, keep bp log, new labs ordered Relevant Orders CBC auto differential Hemoglobin A1c Comprehensive Metabolic Panel Lipid Panel, Standard TSH W/Reflex to FT4 Vitamin D deficiency Will order vitamin d levels to check current status Relevant Orders Vitamin D, 25-Hydroxy, Total, Immunoassay Mixed conductive and sensorineural hearing loss of both ears Will refer to audiology for hearing test Relevant Orders Referral to Audiology Chronic pain of both knees Followed by ortho, will refer to PT Relevant Orders Referral to Physical Therapy documented in this encounter Miscellaneous Notes * Assessment & Plan Note - Justice Hartman MD - 01/12/2025 2:38 PM EDTAssociated Problem(s): Chronic pain of both knees Followed by ortho, will refer to PT * Assessment & Plan Note - Justice Hartman MD - 01/12/2025 2:37 PM EDTAssociated Problem(s): Mixed conductive and sensorineural hearing loss of both ears Will refer to audiology for hearing test * Assessment & Plan Note - Justice Hartman MD - 01/12/2025 2:37 PM EDTAssociated Problem(s): Vitamin D deficiency Will order vitamin d levels to check current status * Assessment & Plan Note - Justice Hartman MD - 01/12/2025 2:37 PM EDTAssociated Problem(s): Primary hypertension Could not provide today results, but refer maintain below 140/90, no changes will be made, continuelow sodium diet and exercise as tolerated, keep bp log, new labs ordered documented in this encounter Plan of Treatment Scheduled Orders Name Type Priority Associated Diagnoses Orde r Schedule Comprehensive Metabolic Panel Lab Routine Primary hypertension Expected: 01/12/2025 (Approximate), Expires: 01/12/2026 Lipid Panel, Standard Lab Routine Primary hypertension Expected: 01/12/2025 (Approximate), Expires: 01/12/2026 TSH W/Reflex to FT4 Lab Routine Primary hypertension Expected: 01/12/2025 (Approximate), Expires: 01/12/2026 Vitamin D, 25-Hydroxy, Total, Immunoassay Lab Routine Vitamin D deficiency Expected: 01/12/2025 (Approximate), Expires: 01/12/2026 Scheduled Referrals Name Type Priority Associated Diagnoses Orde r Schedule Referral to Audiology Outpatient Referral Routine Mixed conductive and sensorineural hearing loss of both ears Expected: 01/12/2025 (Approximate), Expires: 01/12/2026 Referral to Physical Therapy Outpatient Referral Routine Chronic pain of both knees Expected: 01/12/2025 (Approximate), Expires: 01/12/2026 documented as of this encounter Procedures Procedure Name Priority Date/Time Associated Diagnosis Comments CBC WITH AUTO DIFFERENTIAL Routine 01/13/2025 10:59 AM EDT Primary hypertension HEMOGLOBIN A1C Routine 01/13/2025 10:59 AM EDT Primary hypertension documented in this encounter Results * (ABNORMAL) Hemoglobin A1c (01/13/2025 10:59 AM EDT) Hemoglobin A1c 6.1(H) <6.0 % [facility] Comment:Hemoglobin A1C Refer ence Range Adults: 4.8 - 6.0 % Non diabetic: < 6.0 % Goal: < 7.0 %Additional Action Suggested: > 8.0 %Note: Hemoglobin A1c results are invalid for patients with abnormal amounts of HbF. Blood transfusions may impact the HbA1c concentration in the patient sample. Estimated Average Glucose 128 mg/dL [facility] Comment:eAG = Estimated ave rage glucose which is %A1C expressed asaverage glucose, using the formula of the K4H-CqzkhzpUnphwwu Glucose study (ADAG), Diabetes Care, Vol.31,#8,Apr. 2007 Blood Venous blood specimen / Unknown 01/13/2025 10:59 AM EDT 01/13/2025 10:59 AM EDT us Justice Hartman MD LAB BLOOD ORDERABL ES Final Result [facility] [address] [place] [phone] * (ABNORMAL) CBC auto differential (01/13/2025 10:59 AM EDT) White Blood Count 8.3 4.8 - 10.8 X10*3/uL [facility] Red Blood Count 6.05(H) 4.60 - 5.80 X10*6/uL [facility] Hemoglobin 15.8 14.0 - 18.0 g/dl [facility] Hematocrit 48.0 42.0 - 52.0 % [facility] Mean Corpuscular Volume 79.3(L) 80.0 - 98.0 fL [facility] Mean Corpuscular Hemoglobin 26.1(L) 27.0 - 33.0 pg [facility] Mean Corpuscular HGB Conc 32.9 31.0 - 36.0 g/dl [facility] Red Cell Distribution Width 15.6 11.0 - 16.0 % [facility] Platelet Count 254 160 - 400 X10*3/uL [facility] Mean Platelet Volume 9.7 9.4 - 12.4 fL [facility] Neutrophils Percent Auto 59.8 45 - 73 % [facility] Imm Gran Pct Auto 0.2 0.0 - 0.4 % [facility] Lymphocytes Percent Auto 30.6 20 - 40 % [facility] Monocytes Percent Auto 5.8 2 - 11 % [facility] Eosinophils Percent Auto 3.1 0 - 4 % [facility] Basophils Percent Auto 0.5 0 - 2 % [facility] NRBC Pct Auto 0.0 0.0 - 0.2 /100WBC [facility] Neutrophils Absolute Auto 5.0 2.0 - 8.3 x10*3/uL [facility] Imm Gran Abs Auto 0.02 0.00 - 0.03 X10*3/uL [facility] Lymphocytes Absolute Auto 2.5 1.2 - 4.9 X10*3/uL [facility] Monocytes Absolute Auto 0.5 0.1 - 1.2 X10*3/uL [facility] Eosinophils Absolute Auto 0.3 0.0 - 0.4 X10*3/uL [facility] Basophils Absolute Auto 0.0 0.0 - 0.2 X10*3/uL [facility] NRBC Abs Auto 0.000 0.0 - 0.012 X10*3/uL [facility] Blood Venous blood specimen / Unknown 01/13/2025 10:59 AM EDT 01/13/2025 10:59 AM EDT us Justice Hartman MD LAB BLOOD ORDERABL ES Final Result [facility] [address] [place] [phone] documented in this encounter Visit Diagnoses Diagnosis Primary hypertension- Primary Unspecified essential hypertension Mixed conductive and sensorineural hearing loss of both ears Chronic pain of both knees Vitamin D deficiency documented in this encounter Additional Health Concerns Assessment Noted Time PHQ-9 Depression Total Score: 0 05/27/20 24 2:11 PM EDT documented as of this encounter Care Teams Circular Ripsaw Operator Relationship Specialty Start Date End Date Justice Ovalle MD [address] [place] [id number] PCP - General Internal Medicine 09/27/23 documented as of this encounter
--- OUTSIDE RECORDS SUMMARY | 2025-01-13 11:40 | XMS_ITS | Clinical Summary ---
Author Organization [employer] Address [address] [facility] [address] [place] [address] Care Team Providers Care Clinical Programmer Name Role Phone Justice Ovalle MD Primary Care Prov ider Allergies Active Allergy Reactions Criticality Noted Date Comments 2,4-D Dimethylamine 06/13/2021 Medications ergocalciferol (Vitamin D2) 1.25 MG (73636 UT) capsule TAKE 1 CAPSULE BY MOUTH ONE TIME PER WEEK 12 capsule 2 01/13/20 25 Active atorvastatin (Lipitor) 20 MG tablet Take 1 tablet (20 mg) by mouth Once per day. 90 tablet 3 01/13/20 25 026 Active losartan (Cozaar) 25 MG tablet Take 1 tablet (25 mg) by mouth Once per day. 90 tablet 3 01/13/20 25 026 Active ketoconazole (Nizoral) 2 % shampoo Apply topically 2 (two) times a week. 120 mL 3 01/15/20 25 Active atorvastatin (Lipitor) 20 MG tablet Take 1 tablet (20 mg) by mouth Once per day. 30 tablet 11 05/27/20 24 025 Discontinued(Re order (will not trigger notification to Pharmacy)) losartan (Cozaar) 25 MG tablet Take 1 tablet (25 mg) by mouth Once per day. 30 tablet 11 05/27/20 24 025 Discontinued(Re order (will not trigger notification to Pharmacy)) ergocalciferol (Vitamin D2) 1.25 MG (44624 UT) capsule TAKE 1 CAPSULE BY MOUTH ONE TIME PER WEEK 12 capsule 2 05/27/20 24 025 Discontinued(Re order (will not trigger notification to Pharmacy)) ketoconazole (Nizoral) 2 % shampoo Apply topically 2 (two) times a week. 120 mL 3 05/28/20 24 025 Discontinued(Re order (will not trigger notification to Pharmacy)) Active Problems Problem Noted Date Diagnosed Date Mixed conductive and sensori neural hearing loss of both ears 01/12/2025 Assessment & Plan (01/12/2025 2:37 PM EDT): Will refer to audiology for hearing test Chronic pain of both knees 01/12/2025 Assessment & Plan (01/12/2025 2:38 PM EDT): Followed by ortho, will refer to PT Primary hypertension 09/03/2023 Assessment & Plan (01/12/2025 2:37 PM EDT): Could not provide today results, but refer maintain below 140/90, no changes will be made, continue low sodium diet and exercise as tolerated, keep bp log, new labs ordered Assessment & Plan (05/27/2024 2:36 PM EDT): Controlled, continue low sodium diet and exercise as tolerated, keep bp log, blood wok done recently reviewed Assessment & Plan (09/19/2023 2:54 PM EST): Not able to pharmacy picking technician the medication, will send it to [facility], told to keep a bp log for next visit Assessment & Plan (09/03/2023 7:58 PM EST): Reviewed recent bp results, constantly above 140/90, will start on losartan 25mg, keep bp log, low sodium diet and follow up with pcp. Painless hematuria 09/03/2023 Assessment & Plan (09/03/2023 7:59 PM EST): Patient refers has been having episode of hematuria mostly on the mornings, will order u/a with cytology Screening for prostate cancer 09/03/2023 Assessment & Plan (09/03/2023 8:00 PM EST): Will order PSA Vitamin D deficiency 09/03/2023 Assessment & Plan (01/12/2025 2:37 PM EDT): Will order vitamin d levels to check current status Assessment & Plan (09/03/2023 8:01 PM EST): Will order vitamin d oral replacement Mixed hyperlipidemia 09/03/2023 Assessment & Plan (05/27/2024 2:36 PM EDT): Continue atorvastatin, last ldl within target Assessment & Plan (09/19/2023 2:55 PM EST): Will send [facility]atin to [email or web address], he has not been able to pharmacy picking technician the medication Assessment & Plan (09/03/2023 8:02 PM EST): Will renew atorvastatin, new labs to be done in 6-8 weeks Pain in both testicles 09/03/2023 Assessment & Plan (09/19/2023 2:55 PM EST): Ultrasound done today, pending urology evaluation Assessment & Plan (09/03/2023 8:03 PM EST): Will place scrotal ultrasound, no masses palpated by patient on self exam Chronic pain of right knee 09/03/2023 Assessment & Plan (09/03/2023 8:04 PM EST): Followed at [facility], will place referral for f/u Encounters Date Type Department Care Team Description 01/12/2025 2:45 PM EDT Telemedicine [facility] [address] [place] [address] Justice Ovalle MD Primary hypertension (Primary Dx); Mixed conductive and sensorineural hearing loss of both ears; Chronic pain of both knees; Vitamin D deficiency 01/12/2025 Travel 12/23/2024 Telephone [facility] [address] [place] [address] Justice Ovalle MD Lab Orders 12/23/2024 Telephone [facility] [address] [place] [address] Justice Ovalle MD Appointment Request from Last 3 Months Immunizations Name Administration Dates Next Due Influenza, High Dose Seasonal, Preservative Free 05/27/2024 SARS-CoV-2, Unspecified 11/28/2020,11/03/2020 Social History Tobacco Use Types Packs/Day Years Used Date Smoking Tobacco: Never Smokeless Tobacco: Never Tobacco Cessation:Counseling Given: Not Answered Alcohol Use Standard Drinks/Week Comments Never 0 [...] the past 12 months, has t he [employer], gas, oil or water company threatened to [...] Orientation Straight 07/16/2022 10 :39 AM EDT Last Filed Vital Signs Vital Sign Reading Time Taken Comments Blood Pressure 134/88 05/27/2024 2:10 PM EDT Pulse 68 05/27/2024 2:10 PM EDT Temperature 37.1 ??C (98.7 ??F) 05/27/2024 2:10 PM ED T Respiratory Rate 16 05/27/2024 2:10 PM EDT Oxygen Saturation - - Inhaled Oxygen Concentration - - Weight 93.9 kg (207 lb) 05/27/2024 2:10 PM EDT Height - - Body Mass Index - - Plan of Treatment Health Maintenance Due Date Last Done Comments Alcohol/Substance Use Screening 1962 Hepatitis C Screening 1966 DTaP/Tdap/Td Vaccines (1 - Tdap) 1967 Pneumococcal Vaccine: 50+ Years (1 of 1 - PCV) 1998 Zoster Vaccines (1 of 2) 1998 RSV Patients and Patients Aged 60 years or older (1 - 1-dose 75+ series) 2023 COVID-19 Vaccine ( season) 2024 04/09/2022, 11/28/2020, 11/12/2020, Additional history exists Depression Screening 05/27/2025 05/27/2024, 05/27/20 24 SDOH Screening 05/27/2025 05/27/2024 Tobacco Screening 05/27/2025 05/27/2024 Lipid Panel 02/27/2029 02/28/2024, 11/29/2023 Colonoscopy Discontinued 11/16/2020 Colorectal Cancer Screening Discontinued Influenza Vaccine Completed 05/27/2024 CT Colonography Discontinued FIT DNA/Cologuard Discontinued FIT Discontinued FOBT Discontinued HIB Vaccines Aged Out No longer eligi ble based on patient's age to complete this topic HPV Vaccines Aged Out No longer eligi ble based on patient's age to complete this topic Hepatitis A Vaccines Aged Out No long er eligible based on patient's age to complete this topic Hepatitis B Vaccines Aged Out No long er eligible based on patient's age to complete this topic IPV Vaccines Aged Out No longer eligi ble based on patient's age to complete this topic Meningococcal Vaccine Aged Out No aaron drea eligible based on patient's age to complete this topic RSV under 20 months Aged Out No longe r eligible based on patient's age to complete this topic Rotavirus Vaccines Aged Out No longer eligible based on patient's age to complete this topic Sigmoidoscopy Discontinued Procedures Procedure Name Priority Date/Time Associated Diagnosis Comments HEMOGLOBIN A1C Routine 01/13/2025 10:59 AM EDT Primary hypertension CBC WITH AUTO DIFFERENTIAL Routine 01/13/2025 10:59 AM EDT Primary hypertension LIPID PANEL, STANDARD Routine 02/28/2024 10:14 AM EDT COLONOSCOPY Routine 11/16/2020 4:19 PM EST from Last 3 Months or Most Recently Relevant to Health Maintenance Results * (ABNORMAL) CBC auto differential (01/13/2025 10:59 AM EDT) White Blood Count 8.3 4.8 - 10.8 X10*3/uL [facility] Red Blood Count 6.05(H) 4.60 - 5.80 X10*6/uL [facility] Hemoglobin 15.8 14.0 - 18.0 g/dl [facility] Hematocrit 48.0 42.0 - 52.0 % [facility] Mean Corpuscular Volume 79.3(L) 80.0 - 98.0 fL [facility] Mean Corpuscular Hemoglobin 26.1(L) 27.0 - 33.0 pg [facility] Mean Corpuscular HGB Conc 32.9 31.0 - 36.0 g/dl [facility] Red Cell Distribution Width 15.6 11.0 - 16.0 % [facility] Platelet Count 254 160 - 400 X10*3/uL [facility] Mean Platelet Volume 9.7 9.4 - 12.4 fL [facility] Neutrophils Percent Auto 59.8 45 - 73 % [facility] Imm Gran Pct Auto 0.2 0.0 - 0.4 % [facility] Lymphocytes Percent Auto 30.6 20 - 40 % [facility] Monocytes Percent Auto 5.8 2 - 11 % [facility] Eosinophils Percent Auto 3.1 0 - 4 % [facility] Basophils Percent Auto 0.5 0 - 2 % [facility] NRBC Pct Auto 0.0 0.0 - 0.2 /100WBC [facility] Neutrophils Absolute Auto 5.0 2.0 - 8.3 x10*3/uL [facility] Imm Gran Abs Auto 0.02 0.00 - 0.03 X10*3/uL [facility] Lymphocytes Absolute Auto 2.5 1.2 - 4.9 X10*3/uL [facility] Monocytes Absolute Auto 0.5 0.1 - 1.2 X10*3/uL [facility] Eosinophils Absolute Auto 0.3 0.0 - 0.4 X10*3/uL [facility] Basophils Absolute Auto 0.0 0.0 - 0.2 X10*3/uL [facility] NRBC Abs Auto 0.000 0.0 - 0.012 X10*3/uL [facility] Blood Venous blood specimen / Unknown 01/13/2025 10:59 AM EDT 01/13/2025 10:59 AM EDT us Justice Hartman MD LAB BLOOD ORDERABL ES Final Result [facility] [address] [place] [phone] * (ABNORMAL) Hemoglobin A1c (01/13/2025 10:59 AM EDT) Hemoglobin A1c 6.1(H) <6.0 % [facility] Comment:Hemoglobin A1C Refer ence Range Adults: 4.8 - 6.0 % Non diabetic: < 6.0 % Goal: < 7.0 %Additional Action Suggested: > 8.0 %Note: Hemoglobin A1c results are invalid for patients with abnormal amounts of HbF. Blood transfusions may impact the HbA1c concentration in the patient sample. Estimated Average Glucose 128 mg/dL [facility] Comment:eAG = Estimated ave rage glucose which is %A1C expressed asaverage glucose, using the formula of the S4V-[id number] Glucose study (ADAG), Diabetes Care, Vol.31,#8,Apr. 2007 Blood Venous blood specimen / Unknown 01/13/2025 10:59 AM EDT 01/13/2025 10:59 AM EDT us Justice Hartman MD LAB BLOOD ORDERABL ES Final Result Performing Organization Address [facility] Co de Phone Number [facility] [address] [place] [address] [phone] * Lipid Panel, Standard (02/28/2024 10:14 AM EDT) Triglycerides 128 <150 mg/dL [facility] Comment:Desirable Triglyceri de: less than 150 mg/dLBorderline High Triglyceride 150-199 mg/dLHigh Triglyceride: 200-499 mg/dLVery High Triglyceride: greater than or equal to 5OO mg/dL Cholesterol 133 <200 mg/dL [facility] Comment:Desirable Cholestero l: less than 200 mg/dLBorderline High Cholesterol: 200-239 mg/dLHigh Cholesterol: greater than 239 mg/dL LDL Cholesterol Calculated 65 <100 mg/dL [facility] Comment:Desirable LDL: less than 100 mg/dLNear Optimal/Above Optimal LDL: 110- 129 mg/dLBorderline High LDL: 130-159 mg/dLHigh LDL: 160-189 mg/dLVery High LDL: greater than or equal to 190 mg/dL HDL Cholesterol 43 >40 mg/dL [facility] Comment:Desirable HDL: great er than 40 mg/dL Note: This HDL assay may give artificially low results in patients with liver disease. 02/28/2024 10:1 4 AM EDT 02/28/2024 10:14 AM EDT us Generic External Data Provider LAB BLOOD ORDERAB LES Final Result Performing Organization Address [facility]/ZIP Co de Phone Number [facility] [address] [place] [address] [phone] * Colonoscopy (11/16/2020 4:19 PM EST) Anatomical Region Laterality Modality Endoscopy us Historical Provider ENDOSCOPY PROCEDURE ORDER KIRSTEN Final Result from Last 3 Months or Most Recently Relevant to Health Maintenance Insurance Care Teams Clinical Programmer Relationship Specialty Start Date End Date Justice Ovalle MD [address] [place] [phone] PCP - General Internal Medicine 09/27/23
--- OUTSIDE RECORDS SUMMARY | 2025-01-13 11:40 | XMS_ITS | Clinical Summary ---
Author Organization [facility] Address [address] [place] [address] Care Team Providers Care Gin Feeder Name Role Phone Unavailable Primary Care Provider Unavailabl e Social History Tobacco Use Types Packs/Day Years Used Date Smoking Tobacco: Never Assessed Sex and Gender Information Value Date Recorded Sex Assigned at Not on file Gender Identity Not on file Sexual Orientation Not on file Plan of Treatment Not on file
--- OUTSIDE RECORDS SUMMARY | 2025-01-13 11:40 | XMS_ITS | Clinical Summary ---
Author Organization [facility] it[facility] Address [address] [place] [address] Care Team Providers Care Director Of Recreation Therapy Name Role Phone Unavailable Primary Care Provider Unavailabl e Social History Tobacco Use Types Packs/Day Years Used Date Smoking Tobacco: Never Assessed Sex and Gender Information Value Date Recorded Sex Assigned at Not on file Legal Sex Male 9:15 PM EST Gender Identity Not on file Sexual Orientation Not on file Plan of Treatment Health Maintenance Due Date Last Done Comments DTaP,Tdap,and Td Vaccines (1 - Tdap) 1969 Pneumococcal Vaccine: 50+ Ye ars (1 of 1 - PCV) 1998 Zoster Vaccines (1 of 2) 1998 RSV Immunization Adult Patie nts (1 - 1-dose 75+ series) 2023 COVID-19 Vaccine ( - 2023-2 5 season) 2024 Influenza Vaccine (Season Ended) 2025 HIB Vaccines Aged Out No longer eligi [...] on patient's age to complete this topic MMR Vaccines Aged Out No longer eligi ble based on patient's age to complete this topic Meningococcal ACWY Vaccine Aged Out N o longer eligible based on patient's age to complete this topic Meningococcal B Vaccine Aged Out No l onger eligible based on patient's age to complete this topic RSV Immunization Patients Un antoine 20 months Aged Out No longer eligible b ased on patient's age to complete this topic Varicella Vaccines Aged Out No longer eligible based on patient's age to complete this topic
--- OUTSIDE RECORDS SUMMARY | 2025-01-13 11:40 | XMS_ITS | Encounter Summary ---
Author Organization [employer] Address [address] [place] [address] Care Team Providers Care Grain Roaster Name Role Phone Justice Ovalle MD Primary Care Prov ider Encounter Details Date Type Department Care Team (Latest Contact Info) Description 01/12/2025 Travel Social History Tobacco Use Types Packs/Day Years [...] Time PHQ-9 Depression Total Score: 0 05/27/20 2:11 PM EDT documented as of this encounter Care Teams Grain Roaster Relationship Specialty Start Date End Date Justice Ovalle MD [address] [place] [phone] PCP - General Internal Medicine 09/27/23 documented as of this encounter
[2025-01-13 11:46] LABS: Alanine Aminotransferase 22 U/L (0-40); Albumin Level 4.4 g/dL (3.5-5.0); Alkaline Phosphatase 132 U/L (39-117); Anion Gap 12 (12-20); Aspartate Amino Transferase 23 U/L (5-37); Bilirubin Total 0.6 mg/dL (0.0-1.0); Blood Urea Nitrogen 16 mg/dL (9-16); Calcium 9.5 mg/dL (8.4-10.2); Carbon Dioxide 24 mmol/L (22-29); Chloride 109 mmol/L (96-108); Cholesterol 135 mg/dL (<200); Estimated Glomerular Filt Rate > 60; Glucose Random 98 mg/dL (60-115); HDL Cholesterol 47 mg/dL (>40); LDL Cholesterol Calculated 72 mg/dL (<100); Potassium 4.7 mmol/L (3.3-5.1); Sodium 140 mmol/L (135-145); Total Protein 7.6 g/dL (6.5-8.0); Triglycerides 83 mg/dL (<150)
[2025-01-13 12:06] LABS: TSH reflex Free T4 2.95 uIU/mL (0.32-4.0); Vitamin D 25-OH Total 26.3 ng/mL (>30)
== END 2025-01-13 10:21 | disposition home or self-care (01) ==
LOC: HO.LAB 10:20
PROVIDERS: PCP Internal Medicine; Visit Provider Internal Medicine
DX: I10 Essential (primary) hypertension (principal); E55.9 Vitamin D deficiency, unspecified
CPT/HCPCS: 36415; 80053; 80061; 82306; 83036; 84443; 85025

== ENCOUNTER 2025-02-01 09:26 | Outpatient (REF) | payer MEDICAID, SELFPAY ==
--- OUTSIDE RECORDS SUMMARY | 2025-02-01 09:47 | XMS_ITS | Clinical Summary ---
Author Organization [facility] Address [address] [place] [address] Care Team Providers Care Header Setup Operator Name Role Phone Unavailable Primary Care Provider [...]
--- OUTSIDE RECORDS SUMMARY | 2025-02-01 09:47 | XMS_ITS | Clinical Summary ---
Author Organization [facility] Address [address] [place] [address] Care Team Providers Care General Manager Food Name Role Phone Unavailable Primary Care Provider Unavailabl e Social History Tobacco Use Types Packs/Day Years Used Date Smoking Tobacco: Never Assessed Sex and Gender Information Value Date Recorded Sex Assigned at Not on file Gender Identity Not on file Sexual Orientation Not on file Plan of Treatment Not on file
--- OUTSIDE RECORDS SUMMARY | 2025-02-01 09:47 | XMS_ITS | Clinical Summary ---
Author Organization [employer] Address [address] [place] [address] Care Team Providers Care Web Database Developer Name Role Phone Justice Ovalle MD Primary Care Prov ider Allergies Active Allergy Reactions Criticality Noted Date Comments 2,4-D Dimethylamine 06/13/2021 Medications ergocalciferol (Vitamin D2) 1.25 MG (65950 UT) capsule TAKE 1 CAPSULE BY MOUTH [...] to Pharmacy)) ergocalciferol (Vitamin D2) 1.25 MG (13068 UT) capsule TAKE 1 CAPSULE BY MOUTH [...] (09/19/2023 2:54 PM EST): Not able to merchandise pickup/receiving associate the medication, will send it to [facility] instead, told to keep a bp log [...] 2:55 PM EST): Will send atorvastatin to [facility], he has not been able to merchandise pickup/receiving associate the medication Assessment & Plan (09/03/2023 8:02 [...] Plan (09/03/2023 8:04 PM EST): Followed at [facility], will place referral for f/u Encounters Date Type Department Care Team Description 01/19/2025 Telephone [facility] [address] [place] [address] Justice Ovalle MD lab concern 01/12/2025 2:45 PM EDT Telemedicine [facility] [address] [place] [address] Justice Ovalle MD Primary hypertension (Primary Dx); Mixed conductive and sensorineural hearing loss of both ears; Chronic pain of both knees; Vitamin D deficiency 01/12/2025 Travel 12/23/2024 Telephone [facility] [address] [place] [address] Justice Ovalle MD Lab Orders 12/23/2024 Telephone [facility] [address] [place] [address] Justice Ovalle MD Appointment Request from Last 3 Months Immunizations Immunization Administration Dates Next Due Influenza, High Dose [...] Screening 05/27/2025 05/27/2024 Tobacco Screening 05/27/2025 05/27/2024 Diabetes: Hemoglobin A1C 01/13/2026 01/13/2025 Lipid Panel 01/13/2030 01/13/2025, 02/14, 11/29/2023 Colonoscopy Discontinued 11/16/2020 Colorectal Cancer Screening [...] Procedure Name Priority Date/Time Associated Diagnosis Comments VITAMIN D,25-OH,TOTAL,IA Routine 01/13/2025 10:59 AM EDT Vitamin D deficiency TSH W/REFLEX TO FT4 Routine 01/13/2025 1 0:59 AM EDT Primary hypertension LIPID PANEL, STANDARD Routine 01/13/2025 10:59 AM EDT Primary hypertension COMPREHENSIVE METABOLIC PANEL Routine 01/13/2025 10:59 AM EDT Primary hypertension HEMOGLOBIN A1C Routine 01/13/2025 10:59 AM EDT Primary hypertension CBC WITH AUTO DIFFERENTIAL Routine 01/13/2025 10:59 AM EDT Primary hypertension COLONOSCOPY Routine 11/16/2020 4:19 PM EST from Last 3 Months or Most Recently Relevant to Health Maintenance Results * (ABNORMAL) Vitamin D, 25-Hydroxy, Total, Immunoassay (01/13/2025 10:59 AM EDT) Vitamin D 25-OH Total 26.3(L) >30 ng/mL [facility] Comment: Health Based Reference Values*< 20 ??ng/mL ??Nnngjizzf25-13 ng/mL ??Insufficient> 30 ??ng/mL ??Sufficient*Zoran YOUNG. N Engl J Med. 2007;357:266-280There is no well-established upper level of normal vitamin Dlevels. Some laboratories use 50 ng/mL as an upper limit ofnormal. However, toxicity is patient-dependent and may occurat any level. Careful correlation with the patient'spresentation is necessary and, if there is concern forvitamin D toxicity, treatment should be consideredirrespective of the serum level.Care must be taken in interpreting Vitamin D results fromdifferent laboratories and methodologies. ??Published datademonstrated that results from patients undergoinghemodialysis may show a negative bias when tested withvarious automated 25-OH vitamin D assays when compared toLC- MS/MS.When testing samples from patients whose predominant form ofVitamin D is Vitamin D2, such as patients receiving VitaminD2 supplementation, results that are subtherapeutic shouldbe confirmed with another method such as LC-MS/MS. Blood Venous blood specimen / Unknown 01/13/2025 10:59 AM EDT 01/13/2025 10:59 AM EDT Justice Hartman MD LAB BLOOD ORDERABL ES Final Result Performing Organization Address [facility]/ZIP Co de Phone Number [facility] [address] [place] [phone] * TSH W/Reflex to FT4 (01/13/2025 10:59 AM EDT) Pathologist [facility] TSH reflex Free T4 2.95 0.32 - 4.0 uIU/mL [facility] Blood Venous blood specimen / Unknown 01/13/2025 10:59 AM EDT 01/13/2025 10:59 AM EDT Justice Hartman MD LAB BLOOD ORDERABL ES Final Result Performing Organization Address [facility]/ZIP Co de Phone Number [facility] [address] [place] [address] [phone] * (ABNORMAL) CBC auto differential (01/13/2025 10:59 AM EDT) White Blood Count 8.3 4.8 - 10.8 X10*3/uL [facility] Red Blood Count 6.05(H) 4.60 - 5.80 X10*6/uL [facility] Hemoglobin 15.8 14.0 - 18.0 g/dl [facility] Hematocrit 48.0 42.0 - 52.0 % [facility] Mean Corpuscular Volume 79.3(L) 80.0 - 98.0 fL [facility] Mean Corpuscular Hemoglobin 26.1(L) 27.0 - 33.0 pg [facility] Mean Corpuscular HGB Conc 32.9 31.0 - 36.0 g/dl [facility] Red Cell Distribution Width 15.6 11.0 - 16.0 % [facility] Platelet Count 254 160 - 400 X10*3/uL [facility] Mean Platelet Volume 9.7 9.4 - 12.4 fL [facility] Neutrophils Percent Auto 59.8 45 - 73 % [facility] Imm Gran Pct Auto 0.2 0.0 - 0.4 % [facility] Lymphocytes Percent Auto 30.6 20 - 40 % [facility] Monocytes Percent Auto 5.8 2 - 11 % [facility] Eosinophils Percent Auto 3.1 0 - 4 % [facility] Basophils Percent Auto 0.5 0 - 2 % [facility] NRBC Pct Auto 0.0 0.0 - 0.2 /100WBC [facility] Neutrophils Absolute Auto 5.0 2.0 - 8.3 x10*3/uL [facility] Imm Gran Abs Auto 0.02 0.00 - 0.03 X10*3/uL [facility] Lymphocytes Absolute Auto 2.5 1.2 - 4.9 X10*3/uL [facility] Monocytes Absolute Auto 0.5 0.1 - 1.2 X10*3/uL [facility] Eosinophils Absolute Auto 0.3 0.0 - 0.4 X10*3/uL [facility] Basophils Absolute Auto 0.0 0.0 - 0.2 X10*3/uL [facility] NRBC Abs Auto 0.000 0.0 - 0.012 X10*3/uL [facility] Blood Venous blood specimen / Unknown 01/13/2025 10:59 AM EDT 01/13/2025 10:59 AM EDT Justice Hartman MD LAB BLOOD ORDERABL ES Final Result Performing Organization Address [facility] de Phone Number [facility] [address] [place] [phone] * (ABNORMAL) Hemoglobin A1c (01/13/2025 10:59 AM EDT) Hemoglobin A1c 6.1(H) <6.0 % [facility] Comment:Hemoglobin A1C Refer ence Range Adults: 4.8 - 6.0 % Non diabetic: < 6.0 % Goal: < 7.0 %Additional Action Suggested: > 8.0 %Note: Hemoglobin A1c results are invalid for patients with abnormal amounts of HbF. Blood transfusions may impact the HbA1c concentration in the patient sample. Estimated Average Glucose 128 mg/dL [facility] Comment:eAG = Estimated ave rage glucose which is %A1C expressed asaverage glucose, using the formula of the T6M-QpjkozcOfwfakf Glucose study (ADAG), Diabetes Care, Vol.31,#8,Apr. 2007 Blood Venous blood specimen / Unknown 01/13/2025 10:59 AM EDT 01/13/2025 10:59 AM EDT Justice Hartman MD LAB BLOOD ORDERABL ES Final Result Performing Organization Address [facility] de Phone Number [facility] [address] [place] [phone] * Lipid Panel, Standard (01/13/2025 10:59 AM EDT) Triglycerides 83 <150 mg/dL [facility] Comment:Desirable Triglyceri de: less than 150 mg/dLBorderline High Triglyceride 150-199 mg/dLHigh Triglyceride: 200-499 mg/dLVery High Triglyceride: greater than or equal to 5OO mg/dL Cholesterol 135 <200 mg/dL [facility] Comment:Desirable Cholestero l: less than 200 mg/dLBorderline High Cholesterol: 200-239 mg/dLHigh Cholesterol: greater than 239 mg/dL LDL Cholesterol Calculated 72 <100 mg/dL [facility] Comment:Desirable LDL: less than 100 mg/dLNear Optimal/Above Optimal LDL: 110- 129 mg/dLBorderline High LDL: 130-159 mg/dLHigh LDL: 160-189 mg/dLVery High LDL: greater than or equal to 190 mg/dL HDL Cholesterol 47 >40 mg/dL [facility] Comment:Desirable HDL: great er than 40 mg/dL Note: This HDL assay may give artificially low results in patients with liver disease. Blood Venous blood specimen / Unknown 01/13/2025 10:59 AM EDT 01/13/2025 10:59 AM EDT us Justice Hartman MD LAB BLOOD ORDERABL ES Final Result [facility] [address] [place] [address] [phone] * (ABNORMAL) Comprehensive Metabolic Panel (01/13/2025 10:59 AM EDT) Sodium 140 135 - 145 mmol/L [facility] Potassium 4.7 3.3 - 5.1 mmol/L [facility] Chloride 109(H) 96 - 108 mmol/L [facility] Carbon Dioxide 24 22 - 29 mmol/L [facility] Anion Gap 12 12 - 20 [facility] Urea Nitrogen (BUN) 16 9 - 16 mg/dL [facility] Creatinine, Serum 1.03 0.5 - 1.4 mg/dL [facility] Estimated Glomerular Filt Rate >60 [facility] Comment:Chronic Kidney Disea se: Estimated GFR < 60 mL/min/1.01b1Ufchkr Kidney Disease: Estimated GFR < 15 mL/min/1.73m2 Glucose 98 60 - 115 mg/dL [facility] Calcium 9.5 8.4 - 10.2 mg/dL [facility] Bilirubin, Total 0.6 0.0 - 1.0 mg/dL [facility] Aspartate Amino Transferase 23 5 - 37 U/L [facility] Alanine Aminotransferase 22 0 - 40 U/L [facility] Total Protein 7.6 6.5 - 8.0 g/dL [facility] Albumin Level 4.4 3.5 - 5.0 g/dL [facility] Alkaline Phosphatase 132(H) 39 - 117 U/L [facility] Blood Venous blood specimen / Unknown 01/13/2025 10:59 AM EDT 01/13/2025 10:59 AM EDT Justice Hartman MD LAB BLOOD ORDERABL ES Final Result [facility] [address] [place] [phone] * Colonoscopy (11/16/2020 4:19 PM EST) Anatomical Region Laterality Modality Endoscopy Historical Provider ENDOSCOPY PROCEDURE ORDER KIRSTEN Final Result from Last 3 Months or Most Recently Relevant to Health Maintenance Insurance STANDARD Care Teams Web Database Developer Relationship Specialty Start Date End Date Justice Ovalle MD [address] [place] [phone] PCP - General Internal Medicine 09/27/23
--- OUTSIDE RECORDS SUMMARY | 2025-02-01 09:47 | XMS_ITS | Encounter Summary ---
Author Organization [employer] Address [address] [place] [address] Care Team Providers Care Hosiery Pairer Name Role Phone Justice Ovalle MD Primary Care Prov ider Encounter Details Date Type Department Care Team (Late st Contact Info) Description 06/05/2024 Orders Only [facility] [address] [place] [address] ProviderJoseph MD Social History Tobacco Use Types [...] Anatomical Region Laterality Modality Endoscopy Historical Provider MD ENDOSCOPY PROCEDURE ORDER KIRSTEN Final Result * Colonoscopy (11/16/2020 4:19 PM EST) Anatomical Region Laterality Modality Endoscopy us Historical Provider MD ENDOSCOPY PROCEDURE ORDER KIRSTEN Final Result documented in this encounter Visit Diagnoses Not on filedocumented in this encounter Additional Health Concerns Assessment Noted Time PHQ-9 Depression Total Score: 0 05/27/20 24 2:11 PM EDT documented as of this encounter Care Teams Hosiery Pairer Relationship Specialty Start Date End Date Justice Ovalle MD [address] [place] [phone] PCP - General Internal Medicine 09/27/23 documented as of this encounter
--- OUTSIDE RECORDS SUMMARY | 2025-02-01 09:47 | XMS_ITS | Encounter Summary ---
Author Organization [employer] Address [address] [place] [address] Care Team Providers Care Planning Aide Name Role Phone Justice Ovalle MD Primary Care Prov ider Reason for Visit * Reason Onset Date Comments Appointment Request 12/23/2024 Encounter Details Date Type Department Care Team ([facility] st Contact Info) Description 12/23/2024 Telephone [facility] [address] [place] [address] Justice Ovalle MD [address] [place] [address] Appointment Request Social History Tobacco Use Types [...] documented as of this encounter Care Teams Planning Aide Relationship Specialty Start Date End Date Justice Ovalle MD [address] [place] [phone] PCP - General Internal Medicine 09/27/23 documented as of this encounter
[2025-02-01 11:39] LABS: Prostate Specific Antigen 0.92 ng/mL (<0.05-4.0)
== END 2025-02-01 09:27 | disposition home or self-care (01) ==
LOC: HO.LAB 09:26
PROVIDERS: Visit Provider Urology
DX: M17.0 Bilateral primary osteoarthritis of knee (principal); N32.0 Bladder-neck obstruction
CPT/HCPCS: 20610; 36415; 84153; 99212; J0665; J1100; J2003

== ENCOUNTER 2025-02-01 10:09 | Outpatient (AMB) | payer MEDICAID, SELFPAY ==
--- NOTE | 2025-02-01 10:13 | A.OFFVIS_ITS ---
Intake Visit Reasons: Inj-B/L knee injection-last inj 08/06/24 Intake Note: Josue is a 74 year old male who presents today for Bilateral Knee Injections - Last injections done Bilaterally on last 08/06/24. The injections were helpful and he would like to repeat today Allergies latex Allergy (Verified 02/01/25 10:13) Rash Sulfa (Sulfonamide Antibiotics) Allergy (Verified 02/01/25 10:13) Itching HPI HPI Inj-B/L knee injection-last inj 08/06/24: Details: Six months status post bilateral knee injections. These were helpful. They went to [facility] and pain was tolerable. The pain has returned and was inquiring about repeat injections. [facility] Medical History CAD (coronary artery disease) H/O angiography Seborrhea capitis Constipation Hypercholesterolemia Surgical History History of esophagogastroduodenoscopy (EGD) H/O colonoscopy History of prostatectomy History of appendectomy Family History Father No problems noted. Mother No problems noted. Social History Household Members: Spouse and Children Housing: House Alcohol intake: never Patient Tobacco Use Status: Never used Tobacco e-Cigarette/Vaping Use: Never Used Second Hand Smoke Exposure: No service: No Current occupational status: retired Physical Exam Extrem Other: Bilateral knee with TTP over medial joint line 0-125 deg motion Office Procedures Joint Inj/Aspir; Non-Pain Clin Joint Injection/Drain Details: Injected 1 mL of Decadron and 3 mL 1% lidocaine and 3 mL of 0.25% Marcaine. Site was prepped using aseptic technique. Patient tolerated the procedure well. Shoulders, Hips, Knees, Knee Large Joint Injection : Bilateral Knee Coding Procedure code (CPT) selection complete Assessment & Plan Assessment & Plan (1) Bilateral primary osteoarthritis of knee: Code(s): M17.0 - Bilateral primary osteoarthritis of knee Category: Medical Plan: Bilateral knee OA. Injected bilateral knees. Follow up 3 months if pain returns. Coding Level of Care Code Est Pt Level 3 (33570) Diagnoses Bilateral primary osteoarthritis of knee M17.0 CPT Codes Shoulders, Hips, Knees, - Knee Large Joint Injection 75229: Bilateral Knee ([id number])
--- OUTSIDE RECORDS SUMMARY | 2025-02-01 10:44 | XMS_ITS | Clinical Summary ---
Author Organization [facility] Address [address] [place] [address] Care Team Providers Care Panel Saw Operator Name Role Phone Unavailable Primary Care Provider Unavailabl e Social History Tobacco Use Types Packs/Day Years Used Date Smoking Tobacco: Never Assessed Sex and Gender Information Value Date Recorded Sex Assigned at Not on file Gender Identity Not on file Sexual Orientation Not on file Plan of Treatment Not on file
--- OUTSIDE RECORDS SUMMARY | 2025-02-01 10:44 | XMS_ITS | Encounter Summary ---
Author Organization [employer] Address [address] [place] [address] Care Team Providers Care Internal Audit Senior Manager Name Role Phone Justice Ovalle MD Primary Care Prov ider Encounter Details Date Type Department Care Team (Late st Contact Info) Description 06/05/2024 Orders Only [facility] [address] [place] [address] ProviderJoseph MD Social History Tobacco Use Types [...] documented as of this encounter Care Teams Internal Audit Senior Manager Relationship Specialty Start Date End Date Justice Ovalle MD [address] [place] [phone] PCP - General Internal Medicine 09/27/23 documented as of this encounter
--- OUTSIDE RECORDS SUMMARY | 2025-02-01 10:44 | XMS_ITS | Encounter Summary ---
Author Organization [email or web address] Address [address] [place] [address] Care Team Providers Care Airplane Flight Attendant Supervisor Name Role Phone Justice Ovalle MD Primary Care Prov ider Reason for Visit * Reason Onset Date Comments Appointment Request 12/23/2024 Encounter Details Date Type Department Care Team ([facility] st Contact Info) Description 12/23/2024 Telephone [facility] [address] [place] [phone] Justice Ovalle MD [address] [place] [address] Appointment Request Social History Tobacco Use Types [...] documented as of this encounter Care Teams Airplane Flight Attendant Supervisor Relationship Specialty Start Date End Date Justice Ovalle MD [address] [place] [phone] PCP - General Internal Medicine 09/27/23 documented as of this encounter
--- OUTSIDE RECORDS SUMMARY | 2025-02-01 10:44 | XMS_ITS | Clinical Summary ---
Author Organization [employer] Address [address] [place] [address] Care Team Providers Care Subcontract Administrator Name Role Phone Justice Ovalle MD Primary Care Prov ider Allergies Active Allergy Reactions Criticality Noted Date Comments 2,4-D Dimethylamine 06/13/2021 Medications ergocalciferol (Vitamin D2) 1.25 MG (92774 UT) capsule TAKE 1 CAPSULE BY MOUTH [...] to Pharmacy)) ergocalciferol (Vitamin D2) 1.25 MG (91676 UT) capsule TAKE 1 CAPSULE BY MOUTH [...] (09/19/2023 2:54 PM EST): Not able to steel pickler the medication, will send it to hospital for special care instead, told to keep a bp log [...] seth, he has not been able to steel pickler the medication Assessment & Plan (09/03/2023 8:02 [...] Plan (09/03/2023 8:04 PM EST): Followed at [place], will place referral for f/u Encounters Date Type Department Care Team Description 01/19/2025 Telephone [facility] [address] [place] [address] Justice Ovalle MD lab concern 01/12/2025 2:45 PM EDT Telemedicine [facility] [address] [place] [address] Justice Ovalle MD Primary hypertension (Primary Dx); Mixed conductive and sensorineural hearing loss of both ears; Chronic pain of both knees; Vitamin D deficiency 01/12/2025 Travel 12/23/2024 Telephone [facility] [address] [place] [address] Justice Ovalle MD Lab Orders 12/23/2024 Telephone [facility] [address] [place] [address] Justice Ovalle MD Appointment Request from Last [...] Vitamin D 25-OH Total 26.3(L) >30 ng/mL [facility] Comment: Health Based Reference Values*< 20 ??ng/mL ??Oesukdsda40-96 ng/mL ??Insufficient> 30 ??ng/mL ??Sufficient*Zoran YOUNG. N [...] ORDERABL ES Final Result Performing Organization Address [facility]/ZIP Co de Phone Number [facility] [address] [place] [phone] * TSH W/Reflex to FT4 (01/13/2025 10:59 AM EDT) Pathologist [facility] TSH reflex Free T4 2.95 0.32 - 4.0 uIU/mL [facility] Blood Venous blood specimen / Unknown 01/13/2025 10:59 AM EDT 01/13/2025 10:59 AM EDT Justice Hartman MD LAB BLOOD ORDERABL ES Final Result Performing Organization Address [facility]/ZIP Co de Phone Number [facility] [address] [place] [address] [phone] * (ABNORMAL) CBC auto differential (01/13/2025 10:59 AM EDT) White Blood Count 8.3 4.8 - 10.8 X10*3/uL [facility] Red Blood Count 6.05(H) 4.60 - 5.80 X10*6/uL [facility] Hemoglobin 15.8 14.0 - 18.0 g/dl [facility] Hematocrit 48.0 42.0 - 52.0 % [facility] Mean Corpuscular Volume 79.3(L) 80.0 - 98.0 fL [facility] Mean Corpuscular Hemoglobin 26.1(L) 27.0 - 33.0 pg [facility] Mean Corpuscular HGB Conc 32.9 31.0 - 36.0 g/dl [facility] Red Cell Distribution Width 15.6 11.0 - 16.0 % [facility] Platelet Count 254 160 - 400 X10*3/uL [facility] Mean Platelet Volume 9.7 9.4 - 12.4 fL [facility] Neutrophils Percent Auto 59.8 45 - 73 % [facility] Imm Gran Pct Auto 0.2 0.0 - 0.4 % [facility] Lymphocytes Percent Auto 30.6 20 - 40 % [facility] Monocytes Percent Auto 5.8 2 - 11 % [facility] Eosinophils Percent Auto 3.1 0 - 4 % [facility] Basophils Percent Auto 0.5 0 - 2 % [facility] NRBC Pct Auto 0.0 0.0 - 0.2 /100WBC [facility] Neutrophils Absolute Auto 5.0 2.0 - 8.3 x10*3/uL [facility] Imm Gran Abs Auto 0.02 0.00 - 0.03 X10*3/uL [facility] Lymphocytes Absolute Auto 2.5 1.2 - 4.9 X10*3/uL [facility] Monocytes Absolute Auto 0.5 0.1 - 1.2 X10*3/uL [facility] Eosinophils Absolute Auto 0.3 0.0 - 0.4 X10*3/uL [facility] Basophils Absolute Auto 0.0 0.0 - 0.2 X10*3/uL [facility] NRBC Abs Auto 0.000 0.0 - 0.012 X10*3/uL [facility] Blood Venous blood specimen / Unknown 01/13/2025 10:59 AM EDT 01/13/2025 10:59 AM EDT Justice Hartman MD LAB BLOOD ORDERABL ES Final Result Performing Organization Address [facility] de Phone Number [facility] [address] [place] [phone] * (ABNORMAL) Hemoglobin A1c (01/13/2025 10:59 AM EDT) Hemoglobin A1c 6.1(H) <6.0 % [facility] Comment:Hemoglobin A1C Refer ence Range Adults: 4.8 - 6.0 % Non diabetic: < 6.0 % Goal: < 7.0 %Additional Action Suggested: > 8.0 %Note: Hemoglobin A1c results are invalid for patients with abnormal amounts of HbF. Blood transfusions may impact the HbA1c concentration in the patient sample. Estimated Average Glucose 128 mg/dL [facility] Comment:eAG = Estimated ave rage glucose which is %A1C expressed asaverage glucose, using the formula of the J5R-FqrddmdSvqsqmf Glucose study (ADAG), Diabetes Care, Vol.31,#8,Apr. 2007 Blood Venous blood specimen / Unknown 01/13/2025 10:59 AM EDT 01/13/2025 10:59 AM EDT Justice Hartman MD LAB BLOOD ORDERABL ES Final Result Performing Organization Address [facility] de Phone Number [facility] [address] [place] [address] [phone] * Lipid Panel, Standard (01/13/2025 10:59 AM EDT) Triglycerides 83 <150 mg/dL [facility] Comment:Desirable Triglyceri de: less than 150 mg/dLBorderline High Triglyceride 150-199 mg/dLHigh Triglyceride: 200-499 mg/dLVery High Triglyceride: greater than or equal to 5OO mg/dL Cholesterol 135 <200 mg/dL [facility] Comment:Desirable Cholestero l: less than 200 mg/dLBorderline High Cholesterol: 200-239 mg/dLHigh Cholesterol: greater than 239 mg/dL LDL Cholesterol Calculated 72 <100 mg/dL [facility] Comment:Desirable LDL: less than 100 mg/dLNear Optimal/Above Optimal LDL: 110- 129 mg/dLBorderline High LDL: 130-159 mg/dLHigh LDL: 160-189 mg/dLVery High LDL: greater than or equal to 190 mg/dL HDL Cholesterol 47 >40 mg/dL [facility] Comment:Desirable HDL: great er than 40 mg/dL Note: This HDL assay may give artificially low results in patients with liver disease. Blood Venous blood specimen / Unknown 01/13/2025 10:59 AM EDT 01/13/2025 10:59 AM EDT us Justice Hartman MD LAB BLOOD ORDERABL ES Final Result [facility] [address] [place] [address] [phone] * (ABNORMAL) Comprehensive Metabolic Panel (01/13/2025 10:59 AM EDT) Sodium 140 135 - 145 mmol/L [facility] Potassium 4.7 3.3 - 5.1 mmol/L [facility] Chloride 109(H) 96 - 108 mmol/L [facility] Carbon Dioxide 24 22 - 29 mmol/L [facility] Anion Gap 12 12 - 20 [facility] Urea Nitrogen (BUN) 16 9 - 16 mg/dL [facility] Creatinine, Serum 1.03 0.5 - 1.4 mg/dL [facility] Estimated Glomerular Filt Rate >60 [facility] Comment:Chronic Kidney Disea se: Estimated GFR < 60 mL/min/1.24n8Ebteyh Kidney Disease: Estimated GFR < 15 mL/min/1.73m2 Glucose 98 60 - 115 mg/dL [facility] Calcium 9.5 8.4 - 10.2 mg/dL [facility] Bilirubin, Total 0.6 0.0 - 1.0 mg/dL [facility] Aspartate Amino Transferase 23 5 - 37 U/L [facility] Alanine Aminotransferase 22 0 - 40 U/L [facility] Total Protein 7.6 6.5 - 8.0 g/dL [facility] Albumin Level 4.4 3.5 - 5.0 g/dL [facility] Alkaline Phosphatase 132(H) 39 - 117 U/L [facility] Blood Venous blood specimen / Unknown 01/13/2025 10:59 AM EDT 01/13/2025 10:59 AM EDT Justice Hartman MD LAB BLOOD ORDERABL ES Final Result [facility] [address] [place] [address] [phone] * Colonoscopy (11/16/2020 4:19 PM EST) Anatomical Region Laterality Modality Endoscopy Historical Provider ENDOSCOPY PROCEDURE ORDER KIRSTEN Final Result from Last 3 Months or Most Recently Relevant to Health Maintenance Insurance STANDARD Care Teams Subcontract Administrator Relationship Specialty Start Date End Date Justice Ovalle MD [address] [place] [phone] PCP - General Internal Medicine 09/27/23
--- OUTSIDE RECORDS SUMMARY | 2025-02-01 10:44 | XMS_ITS | Clinical Summary ---
Author Organization [facility] ity Address [address] [place] [address] Care Team Providers Care P D Driver Name Role Phone Unavailable Primary Care Provider [...]
== END 2025-02-01 10:40 | disposition home or self-care (01) ==
LOC: HO.HOS 10:10
PROVIDERS: PCP Internal Medicine; Visit Provider Orthopaedic Surgery
DX: M17.0 Bilateral primary osteoarthritis of knee (principal)
CPT/HCPCS: 20610; 99213

== ENCOUNTER 2025-02-02 11:19 | Outpatient (AMB) | payer MEDICAID, SELFPAY ==
--- NOTE | 2025-02-02 11:22 | MHC.OFFVIS ---
Intake Visit Reasons: 6 month follow up/ PSA Intake Note: Pt presents to the office today for a 6 month follow up/PSA. PVR:12ml Allergies latex Allergy (Verified 02/02/25 11:24) Rash Sulfa (Sulfonamide Antibiotics) Allergy (Verified 02/02/25 11:24) Itching HPI Comments Details: Josue is a pleasant male of sub [place] descent. He is a patient Dr. Hartman. He has seen for the following urologic conditions - gross hematuria - lower urinary tract symptoms PVR 12 cc PSA - 02/07 0.9 Doing great. One year follow-up Only concern was retrograde ejaculation Reassurance provided Gross hematuria/lower urinary tract symptoms Prior history of prostate procedure in [place] 2012. Discussed likelihood of recurrent prostate growth Has been on aspirin No workplace exposure to chemicals - retired [employer] [place] Office cystoscopy with recurrent prostate tissue Dutasteride provided for control of bleeding and short-term GreenLight laser 08/09 REPLACED BY [facility] Medical History CAD (coronary artery disease) H/O angiography Seborrhea capitis Constipation Hypercholesterolemia Surgical History History of esophagogastroduodenoscopy (EGD) H/O colonoscopy History of prostatectomy History of appendectomy Family History Father No problems noted. Mother No problems noted. Social History Household Members: Spouse and Children Housing: House Alcohol intake: never Patient Tobacco Use Status: Never used Tobacco e-Cigarette/Vaping Use: Never Used Second Hand Smoke Exposure: No service: No Current occupational status: retired Review of Systems Const Denies chills and Denies fever(s) Card Reports no additional complaints and Denies syncope Resp Denies cough GI Denies abdominal pain and Denies heartburn Reports as per HPI and Denies change in libido Neuro Denies syncope Psych Denies change in libido Endo Denies change in libido Physical Exam Const General: cooperative, healthy appearing, comfortable and no acute distress Orientation/consciousness: patient oriented x3 HEENT Face and sinus: Yes normal facial exam Mouth: moist mucous membranes Neck Neck: Yes normal visual inspection, Yes full ROM and Yes trachea midline Chest Chest palpation & inspection: normal inspection of the chest Resp Effort & Inspection: normal respiratory effort, able to speak in complete sentences and no respiratory distress GI Inspection: Yes normal to inspection Back/Spine/Pelvis Cervical Spine: normal cervical lordosis Thoracic/Lumbar Spine: thoracic and lumbar spine normal to inspection Skin General skin exam: no rashes or lesions noted Neuro General: patient oriented x3, gait normal, tone normal and moves all extremities Extrem General: Yes normal to inspection and Yes capillary refill normal Office Procedures Post Void Residual Post Residual Void Post Void Residual (PVR): 12 [id number] Void Residual by ultrasound Results AMB Urinalysis, Automated UA Leukoctes 0 Stoney/uL Last Edit by Marichuy Holguin CMA on 02/02/25 11:40 UA Nitrite Negative Last Edit by Marichuy Holguin CMA on 02/02/25 11:40 UA Urobilinogen 0.2 mg/dL Last Edit by Marichuy Holguin CMA on 02/02/25 11:40 UA Protein 15 mg/dL Last Edit by Marichuy Holguin CMA on 02/02/25 11:40 UA pH 5.5 Last Edit by Marichuy Holguin CMA on 02/02/25 11:40 UA Blood 10 Clovis/uL Last Edit by Marichuy Holguin CMA on 02/02/25 11:40 UA Specific Frederic 1.030 Last Edit by Marichuy Holguin CMA on 02/02/25 11:40 UA Ketone Negative Last Edit by Marichuy Holguin CMA on 02/02/25 11:40 UA Bilirubin 0 mg/dL Last Edit by Marichuy Holguin CMA on 02/02/25 11:40 UA Glucose 0 mg/dL Last Edit by Marichuy Holguin CMA on 02/02/25 11:40 Results Reviewed Results Reviewed: Laboratory Last Values Urine pH (Auto) 5.5 02/02/25 11:32 Specific Frederic (Auto) 1.030 02/02/25 11:32 Urine Protein (Auto) 15 mg/dL 02/02/25 11:32 Glucose (UA)(Auto) 0 mg/dL 02/02/25 11:32 Urine Ketones (Auto) Negative 02/02/25 11:32 Urine Blood (Auto) 10 Clovis/uL 02/02/25 11:32 Urine Nitrite (Auto) Negative 02/02/25 11:32 Urine Bilirubin (Auto) 0 mg/dL 02/02/25 11:32 Urine Urobilinogen (Auto) 0.2 mg/dL 02/02/25 11:32 Leukocyte Esterase (Auto) 0 Stoney/uL 02/02/25 11:32 Assessment & Plan Assessment & Plan (1) Bladder outlet obstruction: Code(s): N32.0 - Bladder-neck obstruction Category: Medical Plan Twelve month follow-up PVR Orders: Orders AMB Post Void Residual by ultrasound Today N32.0 - Bladder-neck obstruction AMB Urinalysis Automated Today R31.0 - Gross hematuria Medications: Discontinued oxybutynin chloride Discontinued Reason: Patient Completed Course 5 mg PO TID 12 tabs 0RF Patient Instructions: This note is constructed using voice recognition software. While every effort has been made to ensure accuracy field support specialist errors may have been included. Imaging studies, laboratory and physical exam results were discussed and reviewed in detail. No major barriers to patient understanding were identified. An opportunity to ask questions regarding the treatment plan was provided. All questions were answered. The patient expressed understanding and agreement with the above treatment plan. The patient is aware they should contact our office by phone for worsening of their current condition or the appearance of new urologic symptoms. Compliance is encouraged with any medications and followup testing that is ordered. It is a privilege to participate in the urologic care of your patient. If you have any questions or concerns regarding treatment for the above conditions, or other urologic issues, please do not hesitate to contact me. The office telephone contact is [phone]. Sincerely, Dr Jake Gerber MD, [facility] - Urology Compassionate Specialist Care for the Genitourinary System Coding Level of Care Code Est Pt Level 3 (38279) Complex EM visit Add On G2211 Diagnoses Bladder outlet obstruction N32.0 CPT Codes Post Residual Void - PVR CPT Code: 32634-Thmf Void Residual by ultrasound ([id number])
--- OUTSIDE RECORDS SUMMARY | 2025-02-02 12:37 | XMS_ITS | Clinical Summary ---
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, [facility], told to keep a [...] seth, he has 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 drum 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 Assessment & Plan (09/03/2023 8:02 [...] Plan (09/03/2023 8:04 PM EST): Followed at [place], will place referral for f/u Encounters Date Type Department Care Team Description 01/19/2025 Telephone [facility] [address] [place] [address] Justice Ovalle MD lab concern 01/12/2025 2:45 PM EDT Telemedicine [facility] [address] [place] [address] Justice Ovalle MD Primary hypertension (Primary Dx); Mixed conductive and sensorineural hearing loss of both ears; Chronic pain of both knees; Vitamin D deficiency 01/12/2025 Travel 12/23/2024 Telephone [facility] [address] [place] [address] Justice Ovalle MD Lab Orders 12/23/2024 Telephone [facility] [address] [place] [address] Justice Ovalle MD Appointment Request from Last [...] Vitamin D 25-OH Total 26.3(L) >30 ng/mL [facility] Comment: Health Based Reference Values*< 20 ??ng/mL ??Mnsjcylxi91-70 ng/mL ??Insufficient> 30 ??ng/mL ??Sufficient*Zoran YOUNG. N [...] ORDERABL ES Final Result Performing Organization Address [facility]/ZIP Co de Phone Number [facility] [address] [place] [phone] * TSH W/Reflex to FT4 (01/13/2025 10:59 AM EDT) Pathologist [facility] TSH reflex Free T4 2.95 0.32 - 4.0 uIU/mL [facility] Blood Venous blood specimen / Unknown 01/13/2025 10:59 AM EDT 01/13/2025 10:59 AM EDT Justice Hartman MD LAB BLOOD ORDERABL ES Final Result Performing Organization Address [facility]/ZIP Co de Phone Number [facility] [address] [place] [address] [phone] * (ABNORMAL) CBC auto differential (01/13/2025 10:59 AM EDT) White Blood Count 8.3 4.8 - 10.8 X10*3/uL [facility] Red Blood Count 6.05(H) 4.60 - 5.80 X10*6/uL [facility] Hemoglobin 15.8 14.0 - 18.0 g/dl [facility] Hematocrit 48.0 42.0 - 52.0 % [facility] Mean Corpuscular Volume 79.3(L) 80.0 - 98.0 fL [facility] Mean Corpuscular Hemoglobin 26.1(L) 27.0 - 33.0 pg [facility] Mean Corpuscular HGB Conc 32.9 31.0 - 36.0 g/dl [facility] Red Cell Distribution Width 15.6 11.0 - 16.0 % [facility] Platelet Count 254 160 - 400 X10*3/uL [facility] Mean Platelet Volume 9.7 9.4 - 12.4 fL [facility] Neutrophils Percent Auto 59.8 45 - 73 % [facility] Imm Gran Pct Auto 0.2 0.0 - 0.4 % [facility] Lymphocytes Percent Auto 30.6 20 - 40 % [facility] Monocytes Percent Auto 5.8 2 - 11 % [facility] Eosinophils Percent Auto 3.1 0 - 4 % [facility] Basophils Percent Auto 0.5 0 - 2 % [facility] NRBC Pct Auto 0.0 0.0 - 0.2 /100WBC [facility] Neutrophils Absolute Auto 5.0 2.0 - 8.3 x10*3/uL [facility] Imm Gran Abs Auto 0.02 0.00 - 0.03 X10*3/uL [facility] Lymphocytes Absolute Auto 2.5 1.2 - 4.9 X10*3/uL [facility] Monocytes Absolute Auto 0.5 0.1 - 1.2 X10*3/uL [facility] Eosinophils Absolute Auto 0.3 0.0 - 0.4 X10*3/uL [facility] Basophils Absolute Auto 0.0 0.0 - 0.2 X10*3/uL [facility] NRBC Abs Auto 0.000 0.0 - 0.012 X10*3/uL [facility] Blood Venous blood specimen / Unknown 01/13/2025 10:59 AM EDT 01/13/2025 10:59 AM EDT Justice Hartman MD LAB BLOOD ORDERABL ES Final Result Performing Organization Address [facility] de Phone Number [facility] [address] [place] [address] [phone] * (ABNORMAL) Hemoglobin A1c (01/13/2025 10:59 AM EDT) Hemoglobin A1c 6.1(H) <6.0 % [facility] Comment:Hemoglobin A1C Refer ence Range Adults: 4.8 - 6.0 % Non diabetic: < 6.0 % Goal: < 7.0 %Additional Action Suggested: > 8.0 %Note: Hemoglobin A1c results are invalid for patients with abnormal amounts of HbF. Blood transfusions may impact the HbA1c concentration in the patient sample. Estimated Average Glucose 128 mg/dL [facility] Comment:eAG = Estimated ave rage glucose which is %A1C expressed asaverage glucose, using the formula of the Q9I-UwejcfpKgxosoy Glucose study (ADAG), Diabetes Care, Vol.31,#8,Apr. 2007 Blood Venous blood specimen / Unknown 01/13/2025 10:59 AM EDT 01/13/2025 10:59 AM EDT Justice Hartman MD LAB BLOOD ORDERABL ES Final Result Performing Organization Address [facility] de Phone Number [facility] [address] [place] [address] [phone] * Lipid Panel, Standard (01/13/2025 10:59 AM EDT) Triglycerides 83 <150 mg/dL [facility] Comment:Desirable Triglyceri de: less than 150 mg/dLBorderline High Triglyceride 150-199 mg/dLHigh Triglyceride: 200-499 mg/dLVery High Triglyceride: greater than or equal to 5OO mg/dL Cholesterol 135 <200 mg/dL [facility] Comment:Desirable Cholestero l: less than 200 mg/dLBorderline High Cholesterol: 200-239 mg/dLHigh Cholesterol: greater than 239 mg/dL LDL Cholesterol Calculated 72 <100 mg/dL [facility] Comment:Desirable LDL: less than 100 mg/dLNear Optimal/Above Optimal LDL: 110- 129 mg/dLBorderline High LDL: 130-159 mg/dLHigh LDL: 160-189 mg/dLVery High LDL: greater than or equal to 190 mg/dL HDL Cholesterol 47 >40 mg/dL [facility] Comment:Desirable HDL: great er than 40 mg/dL Note: This HDL assay may give artificially low results in patients with liver disease. Blood Venous blood specimen / Unknown 01/13/2025 10:59 AM EDT 01/13/2025 10:59 AM EDT us Justice Hartman MD LAB BLOOD ORDERABL ES Final Result [facility] [address] [place] [address] [phone] * (ABNORMAL) Comprehensive Metabolic Panel (01/13/2025 10:59 AM EDT) Sodium 140 135 - 145 mmol/L [facility] Potassium 4.7 3.3 - 5.1 mmol/L [facility] Chloride 109(H) 96 - 108 mmol/L [facility] Carbon Dioxide 24 22 - 29 mmol/L [facility] Anion Gap 12 12 - 20 [facility] Urea Nitrogen (BUN) 16 9 - 16 mg/dL [facility] Creatinine, Serum 1.03 0.5 - 1.4 mg/dL [facility] Estimated Glomerular Filt Rate >60 [facility] Comment:Chronic Kidney Disea se: Estimated GFR < 60 mL/min/1.35f0Yypjsg Kidney Disease: Estimated GFR < 15 mL/min/1.73m2 Glucose 98 60 - 115 mg/dL [facility] Calcium 9.5 8.4 - 10.2 mg/dL [facility] Bilirubin, Total 0.6 0.0 - 1.0 mg/dL [facility] Aspartate Amino Transferase 23 5 - 37 U/L [facility] Alanine Aminotransferase 22 0 - 40 U/L [facility] Total Protein 7.6 6.5 - 8.0 g/dL [facility] Albumin Level 4.4 3.5 - 5.0 g/dL [facility] Alkaline Phosphatase 132(H) 39 - 117 U/L [facility] Blood Venous blood specimen / Unknown 01/13/2025 10:59 AM EDT 01/13/2025 10:59 AM EDT Justice Hartman MD LAB BLOOD ORDERABL ES Final Result [facility] [address] [place] [phone] [phone] * Colonoscopy (11/16/2020 4:19 PM EST) Anatomical Region Laterality Modality Endoscopy Historical Provider ENDOSCOPY PROCEDURE ORDER KIRSTEN Final Result from Last 3 Months or Most Recently Relevant to Health Maintenance Insurance STANDARD Care Teams Coin Machine Supervisor Relationship Specialty Start Date End Date Justice Ovalle MD [address] [place] [phone] PCP - General Internal Medicine 09/27/23
--- OUTSIDE RECORDS SUMMARY | 2025-02-02 12:37 | XMS_ITS | Encounter Summary ---
Author Organization [employer] Address [address] [place] [address] Care Team Providers Care Linux System Admin Name Role Phone Justice Ovalle MD Primary Care Prov ider Reason for Visit * Reason Onset Date Comments Appointment Request 12/23/2024 Encounter Details Date Type Department Care Team ([facility] st Contact Info) Description 12/23/2024 Telephone [facility] MEDICINE [address] [place] [address] Justice Ovalle MD [address] [place] [address] Appointment Request Social History Tobacco Use Types [...] documented as of this encounter Care Teams Linux System Admin Relationship Specialty Start Date End Date Justice Ovalle MD [address] [place] [id number] PCP - General Internal Medicine 09/27/23 documented as of this encounter
--- OUTSIDE RECORDS SUMMARY | 2025-02-02 12:37 | XMS_ITS | Clinical Summary ---
Author Organization [facility] ity Address [address] [place] [address] Care Team Providers Care Electrical Lineworker Name Role Phone Unavailable Primary Care Provider [...]
--- OUTSIDE RECORDS SUMMARY | 2025-02-02 12:37 | XMS_ITS | Clinical Summary ---
Author Organization [facility] Address [address] [place] [address] Care Team Providers Care Fruit Vendor Name Role Phone Unavailable Primary Care Provider Unavailabl e Social History Tobacco Use Types Packs/Day Years Used Date Smoking Tobacco: Never Assessed Sex and Gender Information Value Date Recorded Sex Assigned at Not on file Gender Identity Not on file Sexual Orientation Not on file Plan of Treatment Not on file
--- OUTSIDE RECORDS SUMMARY | 2025-02-02 12:37 | XMS_ITS | Encounter Summary ---
Author Organization [employer] Address [address] [place] [address] Care Team Providers Care Clinical Appeals Auditor Name Role Phone Justice Ovalle MD Primary Care Prov ider Encounter Details Date Type Department Care Team (Late st Contact Info) Description 06/05/2024 Orders Only [facility] MED & PEDS [address] [place] [address] ProviderJoseph MD Social History Tobacco Use Types [...] documented as of this encounter Care Teams Clinical Appeals Auditor Relationship Specialty Start Date End Date Justice Ovalle MD [address] [place] [address] PCP - General Internal Medicine 09/27/23 documented as of this encounter
== END 2025-02-02 12:19 | disposition home or self-care (01) ==
LOC: HO.HUSH 11:19
PROVIDERS: PCP Internal Medicine; Visit Provider Urology
DX: N32.0 Bladder-neck obstruction (principal); R31.0 Gross hematuria
CPT/HCPCS: 99213

== ENCOUNTER → 2025-02-02 11:19 | Outpatient (BNVA) | payer MEDICAID, SELFPAY | PROVIDERS: PCP Internal Medicine; Visit Provider Urology | DX: R31.0 Gross hematuria (principal); N32.0 Bladder-neck obstruction | CPT/HCPCS: 51798; 81003; 99212 ==

== ENCOUNTER 2025-02-04 14:09 | Outpatient (AMB) | payer MEDICAID, SELFPAY ==
--- OUTSIDE RECORDS SUMMARY | 2025-02-04 14:18 | XMS_ITS | Clinical Summary ---
Author Organization [facility] Address [address] [place] [address] Care Team Providers Care Precision Millwright Name Role Phone Unavailable Primary Care Provider Unavailabl e Social History Tobacco Use Types Packs/Day Years Used Date Smoking Tobacco: Never Assessed Sex and Gender Information Value Date Recorded Sex Assigned at Not on file Gender Identity Not on file Sexual Orientation Not on file Plan of Treatment Not on file
[2025-02-04 14:28] VITALS: BP 130/72; PULSE 78; BMI 29.8
--- NOTE | 2025-02-04 14:28 | MHC.OFFVIS ---
Vital Signs 02/04/25 14:28 Height 5 ft 11 in Weight 213 lb 6.519 oz BMI 29.8 BP 130/72 Blood Pressure Location Lt brachial Position Sitting Pulse 78 Pulse Source Monitor Intake Visit Reasons: CAD (coronary artery disease) Procedure Tech Required: No Accompanied by: Spouse Allergies latex Allergy (Verified 02/02/25 11:24) Rash Sulfa (Sulfonamide Antibiotics) Allergy (Verified 02/02/25 11:24) Itching Medication List - Last Reconciled 02/04/25 by Easton Martin NP atorvastatin 80 mg PO DAILY ezetimibe (Zetia) 10 mg PO DAILY losartan 25 mg PO DAILY multivitamin (Daily Multi-Vitamin tablet) 1 tab PO DAILY HPI Comments Details: This is a 74-year-old male patient coming in for a follow-up visit. Patient with a history of hypertension, hyperlipidemia, and coronary artery disease with prior [place]. Today, patient is accompanied by his who states that they are both living for out of country to visit home town. Patient is otherwise reporting feeling well overall and denies any symptoms including exertional chest pain, shortness of breath, palpitations, dizziness, orthopnea, PND, leg edema, presyncope, or syncope. Patient reports compliance with all his medications. The patient is requesting for 3 months' worth of refills. [facility] Medical History CAD (coronary artery disease) H/O angiography Seborrhea capitis Constipation Hypercholesterolemia Surgical History History of esophagogastroduodenoscopy (EGD) H/O colonoscopy History of prostatectomy History of appendectomy Family History Father No problems noted. Mother No problems noted. Social History Household Members: Spouse and Children Housing: House Alcohol intake: never Patient Tobacco Use Status: Never used Tobacco e-Cigarette/Vaping Use: Never Used Second Hand Smoke Exposure: No service: No Current occupational status: retired Review of Systems Const Denies chills, Denies fatigue, Denies fever(s), Denies frequent falls, Denies weakness, Denies weight gain and Denies weight loss ENT Denies dizziness Card Denies chest pain, Denies leg edema, Denies lightheadedness, Denies palpitations, Denies dyspnea and Denies dyspnea on exertion Resp Denies cough, Denies dyspnea and Denies dyspnea on exertion GI Denies hematochezia Musc Denies abnormal gait, Denies muscle weakness, Denies numbness, Denies radiating pain into limb and Denies tingling Neuro Denies abnormal gait, Denies dizziness, Denies frequent falls, Denies numbness, Denies tingling and Denies weakness Endo Denies fatigue and Denies palpitations Physical Exam Vital Signs: Last Vital Signs Pulse 78 02/04/25 14:28 BP 130/72 02/04/25 14:28 BMI result Body Mass Index 29.8 Const General: cooperative, healthy appearing, comfortable and no acute distress Orientation/consciousness: patient oriented x3 HEENT Head: Yes normal to inspection Neck Neck: Yes normal visual inspection, Yes trachea midline and Yes supple Chest Chest palpation & inspection: normal inspection of the chest Resp Effort & Inspection: normal respiratory effort Auscultation: clear to auscultation bilaterally, no crackles, no rales, no rhonchi and no wheezes Cardio Jugular venous distension: no JVD Palpation: normal PMI Rate: regular rate Rhythm: regular rhythm Heart sounds: S1 normal heart sound present, S2 normal heart sound present, no click, no gallops, Murmur heart sound present systolic at the apex and no rubs Peripheral pulses: Peripheral pulses 2+ throughout GI Inspection: Yes normal to inspection Palpation (GI): Soft to palpation Auscultation: normal bowel sounds Skin General skin exam: no rashes or lesions noted Neuro General: patient oriented x3 Extrem General: Yes normal to inspection, No no pedal edema and No calf tenderness Psych Appearance: grossly normal Mental Status: mental status grossly normal Speech and movement: Normal speech and movement present Office Procedures EKG Details: EKG today showed normal sinus rhythm, 78 beats per minute, normal HI, [place]. [address]-[id number], Complete Results Reviewed Results Reviewed: 11/28/2023-patient underwent myocardial perfusion study which was normal. 01/08/2024-patient had a SARAVANAN that showed normal LV EF between 60-65%, enlarged left atrium, moderate to moderately severe mitral regurgitation, and mild sclerotic changes in the descending thoracic aorta. Assessment & Plan Assessment & Plan (1) CAD (coronary artery disease): Code(s): I25.10 - Atherosclerotic heart disease of [place] coronary artery without angina pectoris Category: Medical Plan: History of prior [place]. continue lifelong aspirin therapy. Most recent LDL at 72. Continue high-dose statin and Zetia therapy. Ideally, LDL goal less than 70. We will repeat lipid profile in 4-6 months. (2) Mitral regurgitation: Code(s): I34.0 - Nonrheumatic mitral (valve) insufficiency Category: Medical Plan: Fgniewob-ej-jvsljx mitral regurgitation. Clinically stable and euvolemic. Discussed in detail signs and symptoms to look for with mitral regurgitation. Continue current regimen. We will repeat echocardiogram in 1 year. (3) Hypercholesterolemia: Code(s): E78.00 - Pure hypercholesterolemia, unspecified Category: Medical Plan: As above. (4) Hypertension: Code(s): I10 - Essential (primary) hypertension Category: Medical Plan: Blood pressure today is well-controlled. Continue losartan. Advised monitoring blood pressures at home. Ideally, blood pressure goal less than 130/80. Advised heart healthy diet, regular exercise, losing weight, med compliance, and aggressive management of vascular risk factors. Follow-up in 1 year, sooner if needed. In the interim, patient will call the office with any concerns or change in symptoms. This note was generated using voice recognition software. While every effort has been made to ensure accuracy and proper fast food restaurant manager, there may be occasional errors that could affect the content or meaning of the described symptoms. Orders: Orders Basic Metabolic Panel 4 Months I25.10 - Atherosclerotic heart disease of [place] coronary artery without angina pectoris AMB EKG-In Office Today I25.10 - Atherosclerotic heart disease of [place] coronary artery without angina pectoris Lipid Panel 4 Months I25.10 - Atherosclerotic heart disease of [place] coronary artery without angina pectoris CA echo transthoracic complete Today I34.0 - Nonrheumatic mitral (valve) insufficiency Medications: New ergocalciferol (vitamin D2) (Vitamin D2) 1,250 mcg PO QWEEK 30 caps 0RF aspirin (Adult Low Dose Aspirin) 81 mg PO DAILY 100 tabs 0RF Refilled atorvastatin Please call office [phone] and make a follow up appointment, to have continued refills. 80 mg PO DAILY 90 tabs 0RF I25.10 - Atherosclerotic heart disease of [place] coronary artery without angina pectoris ezetimibe (Zetia) 10 mg PO DAILY 90 tabs 1RF I25.10 - Atherosclerotic heart disease of [place] coronary artery without angina pectoris losartan 25 mg PO DAILY 90 tabs 1RF Discontinued multivitamin (Daily Multi-Vitamin tablet) Discontinued Reason: Patient no longer taking 1 tab PO DAILY 90 tabs 1RF Coding Level of Care Code Est Pt Level 4 (71578) Complex EM visit Add On G2211 Diagnoses CAD (coronary artery disease) I25.10 Mitral regurgitation I34.0 Hypercholesterolemia E78.00 Hypertension I10 CPT Codes EKG - CPT: 79075-[id number], Complete ([id number]) Time Spent (min) 32 Comment Time spent in reviewing the chart, test results, assessment, counseling and documentation.
== END 2025-02-04 14:56 | disposition home or self-care (01) ==
LOC: HO.HCS 14:10
PROVIDERS: PCP Internal Medicine
DX: I25.10 Atherosclerotic heart disease of native coronary artery without angina pectoris (principal); I34.0 Nonrheumatic mitral (valve) insufficiency; E78.00 Pure hypercholesterolemia, unspecified; I10 Essential (primary) hypertension
CPT/HCPCS: 93010; 99214

== ENCOUNTER → 2025-02-04 14:09 | Outpatient (BNVA) | payer MEDICAID, SELFPAY | PROVIDERS: PCP Internal Medicine | DX: I25.10 Atherosclerotic heart disease of native coronary artery without angina pectoris (principal); I34.0 Nonrheumatic mitral (valve) insufficiency; I10 Essential (primary) hypertension; E78.00 Pure hypercholesterolemia, unspecified | CPT/HCPCS: 93005; 99212 ==

== ENCOUNTER 2025-02-05 12:33 | Outpatient (REF) | payer MEDICAID, SELFPAY ==
--- NOTE | ~2025-02-05 | US_ITS ---
CLINICAL HISTORY: R74.8 - Abnormal levels of other serum enzymes --- Additional Notes or Special Inst ructions: weight loss, alk phos elevation, FH of panc ca US abdomen complete with color Doppler Comparison: None Findings: The visualized pancreas, aorta, and inferior vena cava are unremarkable. Liver normal size and echotexture. Right lobe 14.5 cm length. No focal hepatic masses. Common duct 4.0 mm diameter. Physiologic distention of the gallbladder. Layering gallstones. No gallbladder wall thickening. No pericholecystic fluid. No sonographic Swann sign. Main portal vein antegrade. Right kidney normal size, 10.7 cm in length. Normal cortical width and echotexture. No solid renal masses. No nephrolithiasis or hydronephrosis. Simple renal cortical cysts largest lower pole measuring 4.3 x 3.1 x 4.0 cm. Left kidney normal, 11.1 cm in length. Normal cortical width and echotexture. No solid renal masses.Benign renal cortical cysts largest lower pole measuring 3.7 x 2.8 x 3.1 cm Spleen measures 9.8 cm. No splenic masses. No ascites. No lymphadenopathy. Impression: 1. Cholelithiasis without evidence of cholecystitis. 2. Incidental renal cortical cysts bilaterally. 3. Bowel gas limited the evaluation of the midline structures including the left lobe of the liver. CT or MRI with contrast of the abdomen may be of further diagnostic. This document has been electronically signed by: Gamaliel Hurley MD on 02/06/2025 15:58:48
--- OUTSIDE RECORDS SUMMARY | 2025-02-05 12:35 | XMS_ITS | Clinical Summary ---
Author Organization [facility] Address [address] [place] [address] Care Team Providers Care Paving And Surfacing Labourer Name Role Phone Unavailable Primary Care Provider Unavailabl e Social History Tobacco Use Types Packs/Day Years Used Date Smoking Tobacco: Never Assessed Sex and Gender Information Value Date Recorded Sex Assigned at Not on file Gender Identity Not on file Sexual Orientation Not on file Plan of Treatment Not on file
== END 2025-02-05 12:34 | disposition home or self-care (01) ==
LOC: HO.US 12:33
PROVIDERS: PCP Internal Medicine; Visit Provider Internal Medicine Gastroenterology
DX: R74.8 Abnormal levels of other serum enzymes (principal)
CPT/HCPCS: 76700

== ENCOUNTER → 2025-02-05 12:35 | Outpatient (BNV) | payer MEDICAID, SELFPAY | PROVIDERS: PCP Internal Medicine; Visit Provider Radiology Diagnostic Radiology | DX: K80.20 Calculus of gallbladder without cholecystitis without obstruction (principal); N28.1 Cyst of kidney, acquired | CPT/HCPCS: 76700 ==

== ENCOUNTER → 2025-04-19 13:13 | Outpatient (REF) | payer MEDICAID, SELFPAY ==
--- NOTE | 2025-04-19 13:16 | CA_ITS ---
Transthoracic Echocardiogram Patient (Last, First, Middle): Josue Warner, Gender: Male Date of : 1950 Age: 74 Procedure Date: 04/19/2025 Procedure Type: Transthoracic Echocardiogram Location: OP Height: 180.34 cm Weight: 96.62 kg BSA: 2.17 m2 Heart Rate: 66 bpm BP: 130 / 72 mmHg Drill Operator Pneumatic: CARMEN Referring MD: Easton Martin NP Symptoms: I34.0 - Nonrheumatic mitral (valve) insufficiency Study Quality: Adequate ECG Rhythm: Sinus Conclusions: - The left ventricular systolic function is normal. The calculated ejection fraction is 65% by biplane method. - There is moderate mitral annular calcification. There is mild to moderate mitral valve regurgitation. - Moderate plaque is seen in the sino tubular ridge. Findings Left Ventricle Normal left ventricular cavity size. There is normal left ventricular wall thickness. The left ventricular systolic function is normal. The calculated ejection fraction is 65% by biplane method. There is no evidence of regional wall motion abnormalities. Evidence suggests grade I (mild) diastolic dysfunction. Right Ventricle Normal right ventricular cavity size and systolic function. Atria The left atrium is mildly dilated. The right atrium is normal in size. Aortic Valve There is a normal trileaflet aortic valve. There is no aortic valve stenosis. There is no aortic valve regurgitation. Mitral Valve There is mild anterior mitral leaflet thickening. There is moderate mitral annular calcification. There is mild to moderate mitral valve regurgitation. The mitral regurgitation jet is directed posteriorly. There is no mitral valve stenosis. Pulmonic Valve The pulmonic valve is likely normal. Tricuspid Valve There is trace tricuspid valve regurgitation. There is no evidence of pulmonary hypertension. Great Vessels The asc aorta is normal in size. Moderate plaque is seen in the sino tubular ridge. Venous The inferior vena cava is normal in size and collapses greater than 50% with inspiration. Pericardium/Pleural There is no evidence of pericardial effusion. Prior Study Comparison Changes noted compared to prior study dated: 01/08/2024. Mitral regurgitation appears less severe. Measurements 2D Linear Measurements IVSd: 0.98 0.6-0.9/0.6-1.0 cm LVIDd: 4.28 3.9-5.3/4.2-5.9 cm LVIDd Index: 1.97 2.4-3.2/2.2-3.1 cm/m2 LVIDs: 2.66 2.0-3.6 cm LVPWd: 0.98 0.7-1.1 cm LA Diam: 4.20 2.7-3.8/3.0-4.0 cm LAIDs Index: 1.94 1.5-2.3 cm/m2 LV Mass: 171.64 67-162/88-224 g LV Mass Index: 79.10 43-95/49-115 g/m2 LVOT Diam: 2.00 3.0+(-)1.3 cm 2D Systolic Function EF 4C: 63.60 >55% EF 2C: 71.60 >55% EF BiP: 65.40 >55% Mitral Valve MV VTI: 0.49 MV Pk Walter: 1.31 MV Mn Walter: 0.87 MV Pk Grad: 7.00 MV Mn Grad: 3.00 MV Pk E: 1.08 MV PK A: 1.27 MV Decel Time: 284.00 E/A: 0.90 E'Lateral: 7.29 E'Medial: 4.79 E/E' Med: 22.50 E/E' Lat: 14.80 PHT: 83.00 MVA PHT: 2.65 MVA Continuity: 1.74 Decel [place]: 3.81 Aortic Valve AoV Pk Walter: 1.62 AoV Mn Walter: 1.16 AoV VTI: 0.35 AoV Pk Grad: 10.00 Aov Mn Grad: 6.00 TRACE Cont.VTI: 2.46 LVOT LVOT Pk Walter: 1.34 LVOT Mn Walter: 0.90 LVOT VTI: 0.27 LVOT Pk Grad: 7.00 LVOT Mn Grad: 4.00 LVOT Diam: 2.00 LVOT Area: 3.14 Diastolic Function MV Pk E: 1.08 MV Pk A: 1.27 E/A: 0.90 E'Medial: 4.79 E/E' Med: 22.50 E' Laterial: 7.29 E/E' Lat: 14.80 Right Ventricle TAPSE (mm): 22.30 TVS' Walter: 14.00 Tricuspid Valve TR Pk Walter: 1.86 TR Pk Grad: 14.00 RA Press: 3.00 RVSP: 17.00 Great Vessels Aorta Sinus of Valsalva: 3.67 2.0-3.5 cm Ao Asc: 3.80 2.1-3.4 cm Updated in Other Vendor System with Status of Final Eben Carvajal MD electronically signed on 04/21/2025 10:27:46 AM with status of Final
--- OUTSIDE RECORDS SUMMARY | 2025-04-19 13:31 | XMS_ITS | Clinical Summary ---
Author Organization [facility] it[facility] Address [address] [place] [address] Care Team Providers Care Cardiac Care Unit Nurse Name Role Phone Unavailable Primary Care Provider [...] Vaccine ( - 2023-2 5 season) 2024 Depression Screening 09/16/2024 Influenza Vaccine (#1) 2025 HIB Vaccines Aged Out No longer [...]
--- OUTSIDE RECORDS SUMMARY | 2025-04-19 13:31 | XMS_ITS | Clinical Summary ---
Author Organization [facility] Address [address] [place] [address] Care Team Providers Care Credit Analyst Name Role Phone Unavailable Primary Care Provider Unavailabl e Social History Tobacco Use Types Packs/Day Years Used Date Smoking Tobacco: Never Assessed Sex and Gender Information Value Date Recorded Sex Assigned at Not on file Gender Identity Not on file Sexual Orientation Not on file Plan of Treatment Not on file
--- OUTSIDE RECORDS SUMMARY | 2025-04-19 13:31 | XMS_ITS | Encounter Summary ---
Author Organization [email or web address] Address [address] [place] [address] Care Team Providers Care Fluid Designer Name Role Phone Justice Ovalle MD Primary Care Prov ider Reason for Visit * Reason Onset Date Comments Nurse Triage 04/19/2025 Encounter Details Date Type Department Care Team ([facility] st Contact Info) Description 04/19/2025 Telephone C [facility] [address] [place] [address] Justice Ovalle MD [address] [place] [address] Nurse Triage Social History Tobacco Use Types Packs/Day Years [...] encounter Miscellaneous Notes * Telephone Encounter - Yumiko Serna RN - 04/19/2025 11:37 AM EDT Pt daughter returning call from triage, VM left on CR line. * Telephone Encounter - Blanca Leblanc RN - 04/19/2025 11:16 AM EDT Called pt. No answer. Left message on pt. Voicemail to please call back [facility] nurses at [phone].Advised that if this is an emergency to go to ED and [facility] has no openings today. Stated if pt. Needsto be seen can go to [facility] walk in located at [address] [facility] [place] [place]. Hours of operation given that they are open now and open until 730pm tonight. RE: Jaundice and severe abdominal pain. Called pt. Back. Daughter answered and Pt. In back ground gives verbal permission for her to speak with me. Pt. Daughter states that she just spoke to a nurse and that she wants pt. Seen on Saturday with Dr. Leslie because her Mom has an appt. At 230pm. I asked what sx. Pt. Has and she states that he just got back from [place] and has been having a dull pain in his upper right side of abdomen along with his eyes looking slightly yellow. Pt. Has been eating and drinking WNL. No fever. I advised that due to stomach pain and yellow in eyes that Pt. Needs to be seen today. I advised ED but, I also stated that pt. Can go to [facility] walk in today for evaluation and possible blood work but, I advised that pt. Should be seen today. Protocol Used: Abdominal Pain - Male (Adult) Protocol-Based Disposition: Go to Office or Video Visit Now Positive Triage Questions: * White of the eyes have turned yellow (i.e., jaundice) * Mild pain (e.g., does not interfere with normal activities) and pain comes and goes (cramps) lasts > 48 hours (Exception: This same abdominal pain is a chronic symptom recurrent or ongoing AND present > 4 weeks.) * All higher-acuity triage questions were negative Care Advice Discussed: * Drink Clear Fluids * Avoid Aspirin and NSAIDs * Telephone Encounter - Chidi Montiel - 04/19/2025 11:12 AM EDT Symptom: Jaundice - Not [place] Outcome: Talk to a nurse or provider within 15 minutes Reason: Severe abdominal pain The caller accepted this outcome. Contact daughter at [phone] documented in this encounter Plan of Treatment Upcoming Encounters Date Type Department Care Team ([facility] st Contact Info) Description 04/23/2025 2:00 PM EDT Office Visit [facility] MED & PEDS [address] [place] [address] Justice Ovalle MD [address] [place] [address] documented as of this encounter Visit Diagnoses Not on filedocumented in this encounter Additional Health Concerns Assessment Noted Time PHQ-9 Depression Total Score: 0 05/27/20 2:11 PM EDT documented as of this encounter Care Teams Fluid Designer Relationship Specialty Start Date End Date Justice Ovalle MD [address] [place] [address] PCP - General Internal Medicine 09/27/23 documented as of this encounter
== END ==
LOC: HO.CARD 13:13
PROVIDERS: PCP Internal Medicine
DX: I34.0 Nonrheumatic mitral (valve) insufficiency (principal)
CPT/HCPCS: 93306

== ENCOUNTER → 2025-04-19 13:16 | Outpatient (BNV) | payer MEDICAID, SELFPAY | PROVIDERS: PCP Internal Medicine; Visit Provider Internal Medicine | DX: I34.0 Nonrheumatic mitral (valve) insufficiency (principal); I35.8 Other nonrheumatic aortic valve disorders | CPT/HCPCS: 93306 ==

== ENCOUNTER 2025-04-20 08:42 | Outpatient (REF) | payer MEDICAID, SELFPAY ==
--- OUTSIDE RECORDS SUMMARY | 2025-04-20 08:54 | XMS_ITS | Clinical Summary ---
Author Organization [facility] Address [address] [place] [address] Care Team Providers Care Review Analyst Name Role Phone Unavailable Primary Care Provider Unavailabl e Social History Tobacco Use Types Packs/Day Years Used Date Smoking Tobacco: Never Assessed Sex and Gender Information Value Date Recorded Sex Assigned at Not on file Gender Identity Not on file Sexual Orientation Not on file Plan of Treatment Not on file
--- OUTSIDE RECORDS SUMMARY | 2025-04-20 08:54 | XMS_ITS | Clinical Summary ---
Author Organization [facility] ity Address [address] [place] [address] Care Team Providers Care Lifestyle Director Name Role Phone Unavailable Primary Care Provider [...]
--- OUTSIDE RECORDS SUMMARY | 2025-04-20 08:54 | XMS_ITS | Encounter Summary ---
Author Organization [employer] Address [address] [place] [address] Care Team Providers Care Investigations Chief Name Role Phone Justice Ovalle MD Primary Care Prov ider Encounter Details Date Type Department Care Team (Latest Contact Info) Description 04/19/2025 Travel Social History Tobacco Use Types Packs/Day [...] as of this encounter Plan of Treatment Upcoming Encounters Date Type Department Care Team ([facility] st Contact Info) Description 04/23/2025 2:00 PM EDT Office Visit [facility] MED & PEDS [address] [place] [address] Justice Ovalle MD [address] [place] [address] documented as of this encounter Visit Diagnoses Not on filedocumented in this encounter Additional Health Concerns Assessment Noted Time PHQ-9 Depression Total Score: 0 05/27/20 2:11 PM EDT documented as of this encounter Care Teams Investigations Chief Relationship Specialty Start Date End Date Justice Ovalle MD [address] [place] [address] PCP - General Internal Medicine 09/27/23 documented as of this encounter
[2025-04-20 11:20] LABS: MANUAL DIFF FLAG NO
[2025-04-20 11:29] LABS: Hematocrit 45.9 % (42.0-52.0); Hemoglobin 15.1 g/dl (14.0-18.0); Imm Gran Abs Auto 0.02 X10*3/uL (0.00-0.03); Imm Gran Pct Auto 0.2 % (0.0-0.4); Lymphocytes Absolute Auto 3.0 X10*3/uL (1.2-4.9); Mean Corpuscular HGB Conc 32.9 g/dl (31.0-36.0); Mean Corpuscular Hemoglobin 26.4 pg (27.0-33.0); Mean Corpuscular Volume 80.2 fL (80.0-98.0); NRBC Abs Auto 0.000 X10*3/uL (0.0-0.012); NRBC Pct Auto 0.0 /100WBC (0.0-0.2); Platelet Count 264 X10*3/uL (160-400); Red Blood Count 5.72 X10*6/uL (4.60-5.80); White Blood Count 9.3 X10*3/uL (4.8-10.8)
[2025-04-20 11:30] LABS: Hematocrit 46.4 % (42.0-52.0); Hemoglobin 15.1 g/dl (14.0-18.0); Imm Gran Abs Auto 0.03 X10*3/uL (0.00-0.03); Imm Gran Pct Auto 0.3 % (0.0-0.4); Lymphocytes Absolute Auto 3.1 X10*3/uL (1.2-4.9); Mean Corpuscular HGB Conc 32.5 g/dl (31.0-36.0); Mean Corpuscular Hemoglobin 26.2 pg (27.0-33.0); Mean Corpuscular Volume 80.4 fL (80.0-98.0); NRBC Abs Auto 0.000 X10*3/uL (0.0-0.012); NRBC Pct Auto 0.0 /100WBC (0.0-0.2); Platelet Count 262 X10*3/uL (160-400); Red Blood Count 5.77 X10*6/uL (4.60-5.80); White Blood Count 9.2 X10*3/uL (4.8-10.8)
[2025-04-20 12:08] LABS: Alanine Aminotransferase 15 U/L (0-40); Albumin Level 4.3 g/dL (3.5-5.0); Alkaline Phosphatase 111 U/L (39-117); Anion Gap 12 (12-20); Aspartate Amino Transferase 22 U/L (5-37); Blood Urea Nitrogen 18 mg/dL (9-16); Calcium 9.1 mg/dL (8.4-10.2); Carbon Dioxide 24 mmol/L (22-29); Chloride 110 mmol/L (96-108); Estimated Glomerular Filt Rate > 60; Potassium 3.8 mmol/L (3.3-5.1); Sodium 142 mmol/L (135-145); Total Protein 7.0 g/dL (6.5-8.0)
[2025-04-24 05:28] LABS: Alk.Phos Iso. Macrohepatic 0 % (<=0); Alk.Phos Isoenzymes Bone 39 % (28-66); Alk.Phos Isoenzymes Intest 0 % (1-24); Alk.Phos Isoenzymes Liver 61 % (25-69); Alk.Phos Isoenzymes Placental 0 % (<=0); Alk.Phos Isoenzymes Total 101 U/L (35-144)
== END 2025-04-20 08:43 | disposition home or self-care (01) ==
LOC: HO.HHCL 08:42
PROVIDERS: PCP Internal Medicine; Referring Provider Internal Medicine Gastroenterology; Visit Provider Nurse Practitioner
DX: R74.8 Abnormal levels of other serum enzymes (principal); R39.89 Other symptoms and signs involving the genitourinary system
CPT/HCPCS: 36415; 80053; 84080; 85025; 86381

== ENCOUNTER 2025-05-06 09:14 | Outpatient (AMB) | payer MEDICAID, SELFPAY ==
--- NOTE | 2025-05-06 09:26 | MHC.OFFVIS ---
Intake Visit Reasons: Inj-B/L knee injection-last inj 02/01/25 Intake Note: Josue is a 74 year old male who presents today for repeat injections in bilateral knees. Last injections done in bilateral knees on 02/01/25. Patient reports that these injections were helpful and he would like to repeat bilaterally today as well. Allergies latex Allergy (Verified 02/02/25 11:24) Rash Sulfa (Sulfonamide Antibiotics) Allergy (Verified 02/02/25 11:24) Itching HPI HPI Inj-B/L knee injection-last inj 02/01/25: Details: Josue is a 74 year old male who presents today for repeat injections in bilateral knees. Last injections done in bilateral knees on 02/01/25. Patient reports that these injections were helpful and he would like to repeat bilaterally today as well. He walked 5 miles recently however and stasis right knee is doing great in his left knee does not bother him at all. [facility] Medical History CAD (coronary artery disease) H/O angiography Seborrhea capitis Constipation Hypercholesterolemia Surgical History History of esophagogastroduodenoscopy (EGD) H/O colonoscopy History of prostatectomy History of appendectomy Family History Father No problems noted. Mother No problems noted. Social History Household Members: Spouse and Children Housing: House Alcohol intake: never Patient Tobacco Use Status: Never used Tobacco e-Cigarette/Vaping Use: Never Used Second Hand Smoke Exposure: No service: No Current occupational status: retired Physical Exam Extrem Other: Bilateral knee with no tenderness to palpation and no effusion. Walking normally. 0-125 deg motion Assessment & Plan Assessment & Plan (1) Bilateral primary osteoarthritis of knee: Code(s): M17.0 - Bilateral primary osteoarthritis of knee Category: Medical Plan: This is a 74-year-old gentleman who has been receiving injections for bilateral knee osteoarthritis and although he wants injections today he has no pain so I discussed continuing his activity as tolerated and he will follow up in 3 months. I typically do not inject in pain-free needs. He understands this. Coding Level of Care Code Est Pt Level 3 (16614) Diagnoses Bilateral primary osteoarthritis of knee M17.0
--- OUTSIDE RECORDS SUMMARY | 2025-05-06 10:18 | XMS_ITS | Clinical Summary ---
Author Organization [facility] Address [address] [place] [address] Care Team Providers Care Vegetable I Farmworker Name Role Phone Unavailable Primary Care Provider Unavailabl e Social History Tobacco Use Types Packs/Day Years Used Date Smoking Tobacco: Never Assessed Sex and Gender Information Value Date Recorded Sex Assigned at Not on file Gender Identity Not on file Sexual Orientation Not on file Plan of Treatment Not on file
--- OUTSIDE RECORDS SUMMARY | 2025-05-06 10:18 | XMS_ITS | Encounter Summary ---
Author Organization [employer] Address [address] [place] [address] Care Team Providers Care French Translator Name Role Phone Justice Ovalle MD Primary Care Prov ider Encounter Details Date Type Department Care Team ([facility] st Contact Info) Description 06/05/2024 Orders Only [facility] MED & PEDS [address] [place] [address] ProviderJoseph MD Social History Tobacco Use Types [...] documented as of this encounter Care Teams French Translator Relationship Specialty Start Date End Date Justice Ovalle MD [address] [place] [id number] PCP - General Internal Medicine 09/27/23 documented as of this encounter
--- OUTSIDE RECORDS SUMMARY | 2025-05-06 10:18 | XMS_ITS | Clinical Summary ---
Author Organization [facility] it[facility] Address [address] [place] [address] Care Team Providers Care Metal Spray Operator Name Role Phone Unavailable Primary Care [...]
== END 2025-05-06 10:12 | disposition home or self-care (01) ==
LOC: HO.HOS 09:15
PROVIDERS: PCP Internal Medicine; Visit Provider Orthopaedic Surgery
DX: M17.0 Bilateral primary osteoarthritis of knee (principal)
CPT/HCPCS: 99213

== ENCOUNTER → 2025-05-06 09:14 | Outpatient (BNVA) | payer MEDICAID, SELFPAY | PROVIDERS: PCP Internal Medicine; Visit Provider Orthopaedic Surgery | DX: M17.0 Bilateral primary osteoarthritis of knee (principal) | CPT/HCPCS: 99212; J2003 ==

== ENCOUNTER 2025-05-07 12:45 | Outpatient (AMB) | payer MEDICAID, SELFPAY ==
--- OUTSIDE RECORDS SUMMARY | 2025-05-07 12:48 | XMS_ITS | Encounter Summary ---
Author Organization [employer] Address [address] [place] [address] Care Team Providers Care Back Tender Insulation Board Name Role Phone Justice Ovalle MD Primary Care Prov ider Encounter Details Date Type Department Care Team ([facility] st Contact Info) Description 06/05/2024 Orders Only [facility] MED & PEDS [address] [place] [address] ProviderJoseph MD Social History Tobacco Use Types [...] documented as of this encounter Care Teams Back Tender Insulation Board Relationship Specialty Start Date End Date Justice Ovalle MD [address] [place] [id number] PCP - General Internal Medicine 09/27/23 documented as of this encounter
--- OUTSIDE RECORDS SUMMARY | 2025-05-07 12:48 | XMS_ITS | Clinical Summary ---
Author Organization [facility] Address [address] [place] [address] Care Team Providers Care Wharf Builder Name Role Phone Unavailable Primary Care Provider Unavailabl e Social History Tobacco Use Types Packs/Day Years Used Date Smoking Tobacco: Never Assessed Sex and Gender Information Value Date Recorded Sex Assigned at Not on file Gender Identity Not on file Sexual Orientation Not on file Plan of Treatment Not on file
--- OUTSIDE RECORDS SUMMARY | 2025-05-07 12:48 | XMS_ITS | Clinical Summary ---
Author Organization [facility] ity Address [address] [place] [address] Care Team Providers Care Waiter/Waitress Room Service Name Role Phone Unavailable Primary Care Provider [...]
[2025-05-07 13:01] VITALS: BP 130/68; PULSE 77; BMI 29.2
--- NOTE | 2025-05-07 13:01 | MHC.OFFVIS ---
Vital Signs 05/07/25 13:01 Height 5 ft 11 in Weight 209 lb 7.026 oz BMI 29.2 BP 130/68 Blood Pressure Location Lt brachial Position Sitting Pulse 77 Pulse Source Monitor Intake Visit Reasons: Follow up-Testing Allergies latex Allergy (Verified 02/02/25 11:24) Rash Sulfa (Sulfonamide Antibiotics) Allergy (Verified 02/02/25 11:24) Itching Medication List - Last Reconciled 05/07/25 by Easton Martin NP aspirin (Adult Low Dose Aspirin) 81 mg PO DAILY atorvastatin 80 mg PO DAILY ergocalciferol (vitamin D2) (Vitamin D2) 1,250 mcg PO QWEEK ezetimibe (Zetia) 10 mg PO DAILY losartan 25 mg PO DAILY HPI Comments Details: This is a 74-year-old male patient coming in for a follow-up visit, accompanied by his . Patient with a history of hypertension, hyperlipidemia, and coronary artery disease with prior NV. Today, patient is reporting feeling well overall without any cardiac symptoms of exertional chest pain, shortness of breath, palpitations, dizziness, orthopnea, PND, leg edema, presyncope, or syncope. Patient is reporting compliance with all of his medications. [facility] Medical History CAD (coronary artery disease) H/O angiography Seborrhea capitis Constipation Hypercholesterolemia Surgical History History of esophagogastroduodenoscopy (EGD) H/O colonoscopy History of prostatectomy History of appendectomy Family History Father No problems noted. Mother No problems noted. Social History Household Members: Spouse and Children Housing: House Alcohol intake: never Patient Tobacco Use Status: Never used Tobacco e-Cigarette/Vaping Use: Never Used Second Hand Smoke Exposure: No service: No Current occupational status: retired Review of Systems Const Denies weakness ENT Denies dizziness Card Denies chest pain, Denies chest pain with activity, Denies syncope, Denies rapid heart rate, Denies pedal edema, Denies edema, Denies leg edema, Denies lightheadedness, Denies palpitations, Denies dyspnea, Denies dyspnea on exertion and Denies orthopnea Resp Denies cough, Denies dyspnea and Denies dyspnea on exertion GI Denies hematochezia and Denies change in stool character Musc Denies abnormal gait, Denies muscle cramps, Denies muscle weakness, Denies numbness, Denies radiating pain into limb and Denies tingling Neuro Denies abnormal gait, Denies dizziness, Denies syncope, Denies numbness, Denies tingling and Denies weakness Endo Denies palpitations Physical Exam Vital Signs: Last Vital Signs Pulse 77 05/07/25 13:01 BP 130/68 05/07/25 13:01 BMI result Body Mass Index 29.2 Const General: cooperative, healthy appearing, comfortable and no acute distress Orientation/consciousness: patient oriented x3 HEENT Head: Yes normal to inspection Neck Neck: Yes normal visual inspection, Yes trachea midline and Yes supple Chest Chest palpation & inspection: normal inspection of the chest Resp Effort & Inspection: normal respiratory effort Auscultation: clear to auscultation bilaterally, no crackles, no rales, no rhonchi and no wheezes Cardio Jugular venous distension: no JVD Palpation: normal PMI Rate: regular rate Rhythm: regular rhythm Heart sounds: S1 normal heart sound present, S2 normal heart sound present, no click, no gallops, Murmur heart sound present systolic at the apex and no rubs Peripheral pulses: Peripheral pulses 2+ throughout GI Inspection: Yes normal to inspection Palpation (GI): Soft to palpation Auscultation: normal bowel sounds Skin General skin exam: no rashes or lesions noted Neuro General: patient oriented x3 Extrem General: Yes normal to inspection, No no pedal edema and No calf tenderness Psych Appearance: grossly normal Mental Status: mental status grossly normal Speech and movement: Normal speech and movement present Assessment & Plan Assessment & Plan (1) CAD (coronary artery disease): Code(s): I25.10 - Atherosclerotic heart disease of [place] coronary artery without angina pectoris Category: Medical Plan: History of prior NV. continue lifelong aspirin therapy. Continue statin and Zetia therapy with an LDL goal less than 70. Most recent LDL at 72. The patient will repeat lipid profile in the next month. (2) Mitral regurgitation: Code(s): I34.0 - Nonrheumatic mitral (valve) insufficiency Category: Medical Plan: 04/19/2025-echo study showed a normal LV systolic function with an ejection fraction at 65%, with moderate mitral annular calcification, mildly improved mitral valve regurgitation, and moderate plaque in the sinotubular ridge. Clinically stable. Continue current regimen. (3) Hypercholesterolemia: Code(s): E78.00 - Pure hypercholesterolemia, unspecified Category: Medical Plan: As above. (4) Hypertension: Code(s): I10 - Essential (primary) hypertension Category: Medical Plan: Blood pressure today is well-controlled. Current regimen with a blood pressure goal less than 130/80. Advised monitoring blood pressures at home. Advised heart healthy diet, regular exercise, losing weight, med compliance, and aggressive management of vascular risk factors. Follow-up in 1 year, sooner if needed. In the interim, patient will call the office with any concerns or change in symptoms. This note was generated using voice recognition software. While every effort has been made to ensure accuracy and proper ash conveyor operator, there may be occasional errors that could affect the content or meaning of the described symptoms. Medications: Refilled ezetimibe (Zetia) 10 mg PO DAILY 90 tabs 3RF I25.10 - Atherosclerotic heart disease of [place] coronary artery without angina pectoris Coding Level of Care Code Est Pt Level 4 (69434) Complex EM visit Add On G2211 Diagnoses CAD (coronary artery disease) I25.10 Mitral regurgitation I34.0 Hypercholesterolemia E78.00 Hypertension I10 Time Spent (min) 31 Comment Time spent in reviewing the chart, test results, assessment, counseling and documentation.
== END 2025-05-07 13:35 | disposition home or self-care (01) ==
LOC: HO.HCS 12:46
PROVIDERS: PCP Internal Medicine
DX: I25.10 Atherosclerotic heart disease of native coronary artery without angina pectoris (principal); I34.0 Nonrheumatic mitral (valve) insufficiency; E78.00 Pure hypercholesterolemia, unspecified; I10 Essential (primary) hypertension
CPT/HCPCS: 99214

== ENCOUNTER → 2025-05-07 12:45 | Outpatient (BNVA) | payer MEDICAID, SELFPAY | PROVIDERS: PCP Internal Medicine | DX: Z71.2 Person consulting for explanation of examination or test findings (principal); I25.10 Atherosclerotic heart disease of native coronary artery without angina pectoris; I34.0 Nonrheumatic mitral (valve) insufficiency; E78.00 Pure hypercholesterolemia, unspecified; I10 Essential (primary) hypertension | CPT/HCPCS: 99212 ==

== ENCOUNTER 2025-05-18 13:14 | Outpatient (REF) | payer MEDICAID, SELFPAY ==
--- OUTSIDE RECORDS SUMMARY | 2025-05-18 14:32 | XMS_ITS | Encounter Summary ---
Author Organization [employer] Address [address] [place] [address] Care Team Providers Care Medical Sales Specialist Name Role Phone Justice Ovalle MD Primary Care Prov ider Reason for Visit * Reason Onset Date Comments Appointment Request 12/23/2024 Encounter Details Date Type Department Care Team (Late st Contact Info) Description 12/23/2024 Telephone [facility] MED[facility] [address] [place] [address] Justice Ovalle MD [address] [place] [address] Appointment Request Social History Tobacco Use Types [...] documented as of this encounter Care Teams Medical Sales Specialist Relationship Specialty Start Date End Date Justice Ovalle MD [address] [place] [address] PCP - General Internal Medicine 09/27/23 documented as of this encounter
--- OUTSIDE RECORDS SUMMARY | 2025-05-18 14:32 | XMS_ITS | Clinical Summary ---
Author Organization [facility] it[facility] Address [address] [place] [address] Care Team Providers Care Coater Carbon Paper Name Role Phone Unavailable Primary Care Provider [...] nts (1 - 1-dose 75+ series) 2023 Depression Screening 09/16/2024 COVID-19 Vaccine ( - 2023-2 5 season) 2025 Influenza Vaccine (#1) 2025 HIB Vaccines Aged [...]
--- OUTSIDE RECORDS SUMMARY | 2025-05-18 14:32 | XMS_ITS | Clinical Summary ---
Author Organization [facility] Address [address] [place] [address] Care Team Providers Care Production Illustrator Name Role Phone Unavailable Primary Care Provider Unavailabl e Social History Tobacco Use Types Packs/Day Years Used Date Smoking Tobacco: Never Assessed Sex and Gender Information Value Date Recorded Sex Assigned at Not on file Gender Identity Not on file Sexual Orientation Not on file Plan of Treatment Not on file
--- OUTSIDE RECORDS SUMMARY | 2025-05-18 14:32 | XMS_ITS | Clinical Summary ---
Author Organization [employer] Address 75 [facility] 7t [place] [address] Care Team Providers Care Hot Metal Car Operator Name Role Phone Justice Ovalle MD Primary Care Prov ider Allergies Active Allergy Reactions Criticality Noted Date Comments 2,4-D Dimethylamine 06/13/2021 Medications ergocalciferol (Vitamin D2) 1.25 MG (39869 UT) capsule TAKE 1 CAPSULE BY MOUTH ONE TIME PER WEEK 12 capsule 2 5 Active losartan (Cozaar) 25 MG tablet Take 1 tablet (25 mg) by mouth Once per day. 90 tablet 3 5 01/13/20 26 Active ketoconazole (Nizoral) 2 % shampoo Apply topically 2 (two) times a week. 120 mL 3 5 Active ezetimibe (Zetia) 10 MG tablet Take 10 mg by mouth Once per day. 4 Active atorvastatin (Lipitor) 80 MG tablet Take 80 mg by mouth Once per day. 5 Active aspirin 81 MG EC tablet Take 81 mg by mouth Once per day. Active famotidine (Pepcid) 20 MG tabletIndicati ons:Epigastric pain Take 1 tablet (20 mg) by mouth Once per day. 30 tablet 5 05/19/20 25 Active atorvastatin (Lipitor) 20 MG tablet Take 1 tablet (20 mg) by mouth Once per day. 90 tablet 3 5 04/19/20 25 Discontinue d(Discontin ued by another clinician) Active Problems Problem Noted Date Diagnosed Date [...] (09/19/2023 2:54 PM EST): Not able to last picker the medication, [facility], told to keep a [...] seth, he has not been able to last picker the medication Assessment & Plan (09/03/2023 8:02 [...] Plan (09/03/2023 8:04 PM EST): Followed at [place], will place referral for f/u Encounters Date Type Department Care Team Description 04/23/2025 2:00 PM EDT Office Visit [facility]EDS [address] [place] [address] Justice Ovalle MD Painless hematuria (Primary Dx); Bilateral flank pain 04/23/2025 Travel 04/22/2025 Results Follow-Up [facility] [address] [place], [place] [phone] Andra Chase NP POCT urinalysis dipstick manually resulted, CBC auto differential 04/21/2025 Results Follow-Up [facility] [address] [place], [place] [phone] Andra Chase NP CBC auto differential, Comprehensive Metabolic Panel 04/20/2025 Orders Only GENERIC EXTERNAL DATA DEPARTMENT Provider, Generic External Data 04/19/2025 3:40 PM EDT Office Visit [facility] [address] [place] [address] Andra Chase NP Dark yellow-colored urine (Primary Dx); Epigastric pain; Right upper quadrant abdominal tenderness without rebound tenderness; Cardiac murmur 04/19/2025 Orders Only [facility] [address] [place] [address] Justice Ovalle MD 04/19/2025 Travel 04/19/2025 Telephone [facility] [address] [place] [address] Justice Ovalle MD Lab Orders 04/19/2025 Telephone [facility] [address] [place] [address] Justice Ovalle MD Nurse Triage from Last 3 Months Immunizations Immunization Administration [...] Sign Reading Time Taken Comments Blood Pressure 135/82 04/23/2025 2:27 PM EDT Pulse 76 04/23/2025 2:27 PM EDT Temperature 36.7 C (98.1 F) 04/23/2025 2:27 PM EDT Respiratory Rate 16 04/23/2025 2:27 PM EDT Oxygen Saturation 98% 04/19/2025 3:58 PM EDT Inhaled Oxygen Concentration - - Weight 95.5 kg (210 lb 9.6 oz) 04/23/2025 2:27 P M EDT Height 177.8 cm (5' 10 ) 04/23/2025 2:27 PM EDT Body Mass Index 30.22 04/23/2025 2:27 PM EDT Plan of Treatment Health Maintenance Due Date Last Done Comments Hepatitis C Screening 1968 DTaP/Tdap/Td Vaccines (1 - Tdap) 1967 Pneumococcal Vaccine: 50+ Years (1 of 1 - PCV) 1998 Zoster Vaccines (1 of 2) 1998 RSV Patients and Patients Aged 60 years or older (1 - 1-dose 75+ series) 2023 COVID-19 Vaccine ( - season) 2024 04/09/2022, 11/28/2020, 11/12/2020, Additional history exists Influenza Vaccine (#1) 2025 05/27/2024 Depression Screening 05/27/2025 05/27/2024, 05/27/20 24 SDOH Screening 05/27/2025 05/27/2024 Diabetes: Hemoglobin A1C 01/13/2026 01/13/2025 Tobacco Screening 04/22/2026 04/22/2025 Alcohol/Substance Use Screening 04/23/2026 04/23/2025 Lipid Panel 01/13/2030 01/13/2025, 02/14, 11/29/2023 Colonoscopy Discontinued 11/16/2020 Colorectal Cancer Screening Discontinued CT Colonography Discontinued FIT DNA/Cologuard Discontinued FIT [...] Procedure Name Priority Date/Time Associated Diagnosis Comments POCT URINALYSIS DIPSTICK Routine 04/23/2025 4:17 PM EDT Painless hematuria MITOCHONDRIAL ANTIBODY WITH REFLEX TO TITER Routine 04/20/2025 8:55 AM EDT ALKALINE PHOSPHATASE, ISOENZYMES Routine 04/20/2025 8:55 AM EDT COMPREHENSIVE METABOLIC PANEL Routine 04/20/2025 8:55 AM EDT CBC WITH AUTO DIFFERENTIAL Routine 04/20/2025 8:55 AM EDT CBC WITH AUTO DIFFERENTIAL Routine 04/20/2025 8:55 AM EDT Dark yellow-colored urine POCT URINALYSIS DIPSTICK Routine 04/19/2025 4:57 PM EDT Dark yellow-colored urine HEMOGLOBIN A1C Routine 01/13/2025 10:59 AM EDT Primary hypertension LIPID PANEL, STANDARD Routine 01/13/2025 10:59 AM EDT Primary hypertension COLONOSCOPY Routine 11/16/2020 4:19 PM EST from Last 3 Months or Most Recently Relevant to Health Maintenance Results * (ABNORMAL) POCT Urinalysis (04/23/2025 4:17 PM EDT) Only the most recent of2 resultswithin the time period is included. Color, UA Yellow Clarity, UA Cloudy Glucose, UA Negative Bilirubin, UA Negative Ketones, UA Negative Spec Grav, UA 1.025 Blood, UA Positive(A) Negative, None Detected pH, UA 5.5 Protein, UA Negative Urobilinogen, UA 0.2 Leukocytes, UA Negative Negative, Rare, Trace Nitrite, UA Negative Negative, None Detected Appearance, UA clear QC Media Lot # [id number] Lot# Expiration Date [id number] Urine 04/23/2025 4:17 PM EDT Justice Hartman MD POINT OF C ARE TEST ENTER/EDIT ORDERABLES Edited Result - Final * (ABNORMAL) CBC auto differential (04/20/2025 8:55 AM EDT) Only the most recent of2 resultswithin the time period is included. White Blood Count 9.3 4.8 - 10.8 X10*3/uL [facility] Red Blood Count 5.72 4.60 - 5.80 X10*6/uL [facility] Hemoglobin 15.1 14.0 - 18.0 g/dl [facility] Hematocrit 45.9 42.0 - 52.0 % [facility] Mean Corpuscular Volume 80.2 80.0 - 98.0 fL [facility] Mean Corpuscular Hemoglobin 26.4(L) 27.0 - 33.0 pg [facility] Mean Corpuscular HGB Conc 32.9 31.0 - 36.0 g/dl [facility] Red Cell Distribution Width 16.0 11.0 - 16.0 % [facility] Platelet Count 264 160 - 400 X10*3/uL [facility] Mean Platelet Volume 10.4 9.4 - 12.4 fL [facility] Neutrophils Percent Auto 57.8 45 - 73 % [facility] Imm Gran Pct Auto 0.2 0.0 - 0.4 % [facility] Lymphocytes Percent Auto 32.6 20 - 40 % [facility] Monocytes Percent Auto 6.6 2 - 11 % [facility] Eosinophils Percent Auto 2.3 0 - 4 % [facility] Basophils Percent Auto 0.5 0 - 2 % [facility] NRBC Pct Auto 0.0 0.0 - 0.2 /100WBC [facility] Neutrophils Absolute Auto 5.3 2.0 - 8.3 x10*3/uL [facility] Imm Gran Abs Auto 0.02 0.00 - 0.03 X10*3/uL [facility] Lymphocytes Absolute Auto 3.0 1.2 - 4.9 X10*3/uL [facility] Monocytes Absolute Auto 0.6 0.1 - 1.2 X10*3/uL [facility] Eosinophils Absolute Auto 0.2 0.0 - 0.4 X10*3/uL [facility] Basophils Absolute Auto 0.1 0.0 - 0.2 X10*3/uL [facility] NRBC Abs Auto 0.000 0.0 - 0.012 X10*3/uL [facility] 04/20/2025 8:55 AM EDT 04/20/2025 11:14 AM EDT us Generic External Data Provider LAB BLOOD ORDERAB LES Final Result [facility] [address] [place] [phone] [phone] * (ABNORMAL) Alkaline phosphatase, isoenzymes (04/20/2025 8:55 AM EDT) Alkaline Phosphatase 101 35 - 144 U/L [facility] Intestinal Isoenzymes 0(A) 1 - 24 % [facility] Bone Isoenzymes 39 28 - 66 % [facility] Liver Isoenzymes 61 25 - 69 % [facility] Placental Isoenzymes 0 <=0 % [facility] Macrohepatic Isoenzymes 0 <=0 % [facility] Comment:THIS TEST WAS PERFOR MED AT:[employer] [place] [id number] MAURER MD,PHD Interpretation [facility] 04/20/2025 8:55 AM EDT 04/20/2025 11:14 AM EDT us Generic External Data Provider LAB BLOOD ORDERAB LES Final Result Performing Organization Address City/Va Hospital/ZIP Co de Phone Number [facility] [address] [place] [phone] * Mitochondrial Antibody with Reflex to Titer (04/20/2025 8:55 AM EDT) Mitochondrial Antibodies NEGATIVE NEGATIVE [facility] Comment:THIS TEST WAS PERFOR MED AT:[employer] [address] [id number] NORWOOD MD Mitochondrial Ab Titer [facility] 04/20/2025 8:55 AM EDT 04/20/2025 11:14 AM EDT us Generic External Data Provider LAB BLOOD ORDERAB LES Final Result Performing Organization Address [facility] Hospital/ZIP Co de Phone Number [facility] [address] [place] [phone] * (ABNORMAL) Comprehensive Metabolic Panel (04/20/2025 8:55 AM EDT) Sodium 142 135 - 145 mmol/L [facility] Potassium 3.8 3.3 - 5.1 mmol/L [facility] Chloride 110(H) 96 - 108 mmol/L [facility] Carbon Dioxide 24 22 - 29 mmol/L [facility] Anion Gap 12 12 - 20 [facility] Urea Nitrogen (BUN) 18(H) 9 - 16 mg/dL [facility] Creatinine, Serum 0.97 0.5 - 1.4 mg/dL [facility] Estimated Glomerular Filt Rate >60 [facility] Comment:Chronic Kidney Disea se: Estimated GFR < 60 mL/min/1.66u1Lqgwpm Kidney Disease: Estimated GFR < 15 mL/min/1.73m2 Glucose 96 60 - 115 mg/dL [facility] Calcium 9.1 8.4 - 10.2 mg/dL [facility] Bilirubin, Total 0.6 0.0 - 1.0 mg/dL [facility] Aspartate Amino Transferase 22 5 - 37 U/L [facility] Alanine Aminotransferase 15 0 - 40 U/L [facility] Total Protein 7.0 6.5 - 8.0 g/dL [facility] Albumin Level 4.3 3.5 - 5.0 g/dL [facility] Alkaline Phosphatase 111 39 - 117 U/L [facility] 04/20/2025 8:55 AM EDT 04/20/2025 11:14 AM EDT us Generic External Data Provider LAB BLOOD ORDERAB LES Final Result [facility] [address] [place] [phone] * (ABNORMAL) Hemoglobin A1c (01/13/2025 10:59 AM EDT) Hemoglobin A1c 6.1(H) <6.0 % [facility] Comment:Hemoglobin A1C Refer ence Range Adults: 4.8 - 6.0 % Non diabetic: < 6.0 % Goal: < 7.0 %Additional Action Suggested: > 8.0 %Note: Hemoglobin A1c results are invalid for patients with abnormal amounts of HbF. Blood transfusions may impact the HbA1c concentration in the patient sample. Estimated Average Glucose 128 mg/dL [facility] Comment:eAG = Estimated ave rage glucose which is %A1C expressed asaverage glucose, using the formula of the Q9B-MaeunblJjwkgro Glucose study (ADAG), Diabetes Care, Vol.31,#8,Apr. 2007 Blood Venous blood specimen / Unknown 01/13/2025 10:59 AM EDT 01/13/2025 10:59 AM EDT us Justice Hartman MD LAB BLOOD ORDERABL ES Final Result [facility] [address] [place] [phone] * Lipid Panel, Standard (01/13/2025 10:59 AM EDT) Triglycerides 83 <150 mg/dL [facility] Comment:Desirable Triglyceri de: less than 150 mg/dLBorderline High Triglyceride 150-199 mg/dLHigh Triglyceride: 200-499 mg/dLVery High Triglyceride: greater than or equal to 5OO mg/dL Cholesterol 135 <200 mg/dL [facility] Comment:Desirable Cholestero l: less than 200 mg/dLBorderline High Cholesterol: 200-239 mg/dLHigh Cholesterol: greater than 239 mg/dL LDL Cholesterol Calculated 72 <100 mg/dL [facility] Comment:Desirable LDL: less than 100 mg/dLNear Optimal/Above Optimal LDL: 110- 129 mg/dLBorderline High LDL: 130-159 mg/dLHigh LDL: 160-189 mg/dLVery High LDL: greater than or equal to 190 mg/dL HDL Cholesterol 47 >40 mg/dL [facility] Comment:Desirable HDL: great er than 40 mg/dL Note: This HDL assay may give artificially low results in patients with liver disease. Blood Venous blood specimen / Unknown 01/13/2025 10:59 AM EDT 01/13/2025 10:59 AM EDT Justice Hartman MD LAB BLOOD ORDERABL ES Final Result [facility] [address] [place] [phone] * Colonoscopy (11/16/2020 4:19 PM EST) Anatomical Region Laterality Modality Endoscopy Historical Provider ENDOSCOPY PROCEDURE ORDER KIRSTEN Final Result from Last 3 Months or Most Recently Relevant to Health Maintenance Insurance [facility] STANDARD Care Teams Hot Metal Car Operator Relationship Specialty Start Date End Date Justice Ovalle MD NPI: [id number] [place] [phone] PCP - General Internal Medicine 09/27/23
--- OUTSIDE RECORDS SUMMARY | 2025-05-18 14:32 | XMS_ITS | Encounter Summary ---
Author Organization [employer] Address [address] [facility] 7 [place] [address] Care Team Providers Care Tire Buffer Name Role Phone Justice Ovalle MD Primary Care Prov ider Encounter Details Date Type Department Care Team ([facility] st Contact Info) Description 04/19/2025 Orders Only [facility] PEDS [address] [place], [place] [phone] Justice Ovalle MD [address] [place] [phone] Social History Tobacco Use Types Packs/Day Years [...] documented as of this encounter Care Teams Tire Buffer Relationship Specialty Start Date End Date Justice Ovalle MD [address] [place] [phone] PCP - General Internal Medicine 09/27/23 documented as of this encounter
--- OUTSIDE RECORDS SUMMARY | 2025-05-18 14:32 | XMS_ITS | Encounter Summary ---
Author Organization [employer] Address [address] [facility] [address] [place] [address] Care Team Providers Care Director Home Name Role Phone Justice Ovalle MD Primary Care Prov ider Encounter Details Date Type Department Care Team ([facility] st Contact Info) Description 06/05/[address] [facility] & PEDS [address] [place] [address] ProviderJoseph MD Social History Tobacco Use Types [...] documented as of this encounter Care Teams Director Home Relationship Specialty Start Date End Date Justice Ovalle MD [address] [place] [phone] PCP - General Internal Medicine 09/27/23 documented as of this encounter
--- NOTE | 2025-05-18 15:13 | MHC.AU.HA1 ---
Hearing Aid Evaluation Date of Visit: 05/18/25 Historical Information: Description of Hearing: Mild gradually sloping to severe sensorineural hearing loss, bilateral. Current personal amplification information, if applicable: None. Summary: Seen for evaluation. Reports difficulty hearing for at least the past year. Notes he mishears, puts effort into hearing, struggles with distant speech. Binaural amplification recommended to facilitate improved communication. Discussed hearing aid styles, benefits and limitations. Josue selected rechargeable RITE style hearing aid. He has an iPhone that he is interested in pairing with hearing aids. Hearing Aid Prescription: Based on the individual?s shared listening needs, communication environments, dexterity, desire for connectivity, and personal preferences, the following prescription for amplification has been made: Right ear: Make, Model, Color: Oticon Intent 2 R black Battery Size: Rechargeable Medical Lab Specialist/Slim Tube: 2/85 Type of Earmold/Dome/CShell/SlimTip: 8mm dbl reed Left ear: Make, Model, Color: Oticon Intent 2 R black Battery Size: Rechargeable Medical Lab Specialist/Slim Tube: 2/85 Type of Earmold/Dome/CShell/SlimTip: 8mm dbl reed Plan of Care: Patient wishes to purchase hearing aids as prescribed Action Taken/Action Needed: Medical Clearance to be requested from PCP/ENT Hearing Instrument Fitting to be scheduled when materials arrive Primary Diagnosis: H90.3 Bilateral Sensorineural Hearing Loss Signature: Provider: Sebastian Osborn, CCC-A
== END 2025-05-18 13:15 | disposition home or self-care (01) ==
LOC: HO.SH 13:14
PROVIDERS: Visit Provider Internal Medicine
DX: Z01.118 Encounter for examination of ears and hearing with other abnormal findings (principal); H90.3 Sensorineural hearing loss, bilateral
CPT/HCPCS: 92557; 92567; 92591

== ENCOUNTER 2025-05-24 12:27 | Outpatient (REF) | payer MEDICAID, SELFPAY ==
--- OUTSIDE RECORDS SUMMARY | 2025-05-25 18:02 | XMS_ITS | Encounter Summary ---
Author Organization [employer] Address [address] [place] [address] Care Team Providers Care Border Inspector Name Role Phone Justice Ovalle MD Primary Care Prov ider Reason for Visit * Reason Onset Date Comments Appointment Request 12/23/2024 Encounter Details Date Type Department Care Team (Late st Contact Info) Description 12/23/2024 Telephone [facility] MEDICINE [address] [place] [address] Justice Ovalle MD [address] [place] [address] Appointment Request Social History Tobacco Use Types [...] documented as of this encounter Care Teams Border Inspector Relationship Specialty Start Date End Date Justice Ovalle MD [address] [place] [address] PCP - General Internal Medicine 09/27/23 documented as of this encounter
--- OUTSIDE RECORDS SUMMARY | 2025-05-25 18:02 | XMS_ITS | Clinical Summary ---
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 Assessment & Plan (09/03/2023 8:02 [...] Plan (09/03/2023 8:04 PM EST): [facility] referral for f/u Encounters Date Type Department Care Team Description 04/23/2025 2:00 PM EDT Office Visit [facility] MED & PEDS [address] [place] [address] Justice Ovalle MD Painless hematuria (Primary Dx); Bilateral flank pain 04/23/2025 Travel 04/22/2025 Results Follow-Up [facility] MEDICINE [address] [place] [phone] Andra Chase NP POCT urinalysis dipstick manually resulted, CBC auto differential 04/21/2025 Results Follow-Up [facility] MEDICINE [address] [place] [phone] Andra Chase NP CBC auto differential, Comprehensive Metabolic Panel 04/20/2025 Orders Only GENERIC EXTERNAL DATA DEPARTMENT Provider, Generic External Data 04/19/2025 3:40 PM EDT Office Visit [facility] [address] [place] [address] Appram, Andra, SENIOR LABORATORY TECHNICIAN Dark yellow-colored urine (Primary Dx); Epigastric pain; Right upper quadrant abdominal tenderness without rebound tenderness; Cardiac murmur 04/19/2025 Orders Only [facility] MED & PEDS [address] [place] [address] Justice Ovalle MD 04/19/2025 Travel 04/19/2025 Telephone [facility] MED & PEDS [address] [place] [address] Justice Ovalle MD Lab Orders 04/19/2025 Telephone [facility] MED & PEDS [address] [place] [address] Justice Ovalle MD Nurse Triage from Last [...] the past 12 months, has t he [email or web address], oil or water [employer] threatened to shut off services in your [...] Media Lot # [id number] Lot# Expiration Date [id number] Urine 04/23/2025 4:17 PM EDT Justice Hartman MD POINT OF C ARE TEST ENTER/EDIT ORDERABLES Edited Result - Final * (ABNORMAL) CBC auto differential (04/20/2025 8:55 AM EDT) Only the most recent of2 resultswithin the time period is included. White Blood Count 9.3 4.8 - 10.8 X10*3/uL [facility] Red Blood Count 5.72 4.60 - 5.80 X10*6/uL [facility] Hemoglobin 15.1 14.0 - 18.0 g/dl [facility] Hematocrit 45.9 42.0 - 52.0 % [facility] Mean Corpuscular Volume 80.2 80.0 - 98.0 fL [facility] Mean Corpuscular Hemoglobin 26.4(L) 27.0 - 33.0 pg [facility] Mean Corpuscular HGB Conc 32.9 31.0 - 36.0 g/dl [facility] Red Cell Distribution Width 16.0 11.0 - 16.0 % [facility] Platelet Count 264 160 - 400 X10*3/uL [facility] Mean Platelet Volume 10.4 9.4 - 12.4 fL [facility] Neutrophils Percent Auto 57.8 45 - 73 % [facility] Imm Gran Pct Auto 0.2 0.0 - 0.4 % [facility] Lymphocytes Percent Auto 32.6 20 - 40 % [facility] Monocytes Percent Auto 6.6 2 - 11 % [facility] Eosinophils Percent Auto 2.3 0 - 4 % [facility] Basophils Percent Auto 0.5 0 - 2 % [facility] NRBC Pct Auto 0.0 0.0 - 0.2 /100WBC [facility] Neutrophils Absolute Auto 5.3 2.0 - 8.3 x10*3/uL [facility] Imm Gran Abs Auto 0.02 0.00 - 0.03 X10*3/uL [facility] Lymphocytes Absolute Auto 3.0 1.2 - 4.9 X10*3/uL [facility] Monocytes Absolute Auto 0.6 0.1 - 1.2 X10*3/uL [facility] Eosinophils Absolute Auto 0.2 0.0 - 0.4 X10*3/uL [facility] Basophils Absolute Auto 0.1 0.0 - 0.2 X10*3/uL [facility] NRBC Abs Auto 0.000 0.0 - 0.012 X10*3/uL [facility] 04/20/2025 8:55 AM EDT 04/20/2025 11:14 AM EDT us Generic External Data Provider LAB BLOOD ORDERAB LES Final Result [facility] [address] [place] [address] [phone] * (ABNORMAL) Alkaline phosphatase, isoenzymes (04/20/2025 8:55 AM EDT) Alkaline Phosphatase 101 35 - 144 U/L [facility] Intestinal Isoenzymes 0(A) 1 - 24 % [facility] Bone Isoenzymes 39 28 - 66 % [facility] Liver Isoenzymes 61 25 - 69 % [facility] Placental Isoenzymes 0 <=0 % [facility] Macrohepatic Isoenzymes 0 <=0 % [facility] Comment:THIS TEST WAS PERFOR MED AT:[facility] [place] [address]RIEMTHDROBBIN MAURER MD,PHD Interpretation [facility] 04/20/2025 8:55 AM EDT 04/20/2025 11:14 AM EDT us Generic External Data Provider LAB BLOOD ORDERAB LES Final Result Performing Organization Address [facility]/ZIP Co de Phone Number [facility] [address] [place] [address] [phone] * Mitochondrial Antibody with Reflex to Titer (04/20/2025 8:55 AM EDT) Pathologist [facility] Mitochondrial Antibodies NEGATIVE NEGATIVE [facility] Comment:THIS TEST WAS PERFOR MED AT:[facility]! [address] [id number] NORWOOD MD Mitochondrial Ab Titer [facility] 04/20/2025 8:55 AM EDT 04/20/2025 11:14 AM EDT us Generic External Data Provider LAB BLOOD ORDERAB LES Final Result Performing Organization Address [facility]/ZIP Co de Phone Number [facility] [address] [place] [address] [phone] * (ABNORMAL) Comprehensive Metabolic Panel (04/20/2025 8:55 AM EDT) Pathologist [facility] Sodium 142 135 - 145 mmol/L [facility] Potassium 3.8 3.3 - 5.1 mmol/L [facility] Chloride 110(H) 96 - 108 mmol/L [facility] Carbon Dioxide 24 22 - 29 mmol/L [facility] Anion Gap 12 12 - 20 [facility] Urea Nitrogen (BUN) 18(H) 9 - 16 mg/dL [facility] Creatinine, Serum 0.97 0.5 - 1.4 mg/dL [facility] Estimated Glomerular Filt Rate >60 [facility] Comment:Chronic Kidney Disea se: Estimated GFR < 60 mL/min/[id number] Kidney Disease: Estimated GFR < 15 mL/min/1.73m2 Glucose 96 60 - 115 mg/dL [facility] Calcium 9.1 8.4 - 10.2 mg/dL [facility] Bilirubin, Total 0.6 0.0 - 1.0 mg/dL [facility] Aspartate Amino Transferase 22 5 - 37 U/L [facility] Alanine Aminotransferase 15 0 - 40 U/L [facility] Total Protein 7.0 6.5 - 8.0 g/dL [facility] Albumin Level 4.3 3.5 - 5.0 g/dL [facility] Alkaline Phosphatase 111 39 - 117 U/L [facility] 04/20/2025 8:55 AM EDT 04/20/2025 11:14 AM EDT us Generic External Data Provider LAB BLOOD ORDERAB LES Final Result [facility] [address] [place] [phone] * (ABNORMAL) Hemoglobin A1c (01/13/2025 10:59 AM EDT) Hemoglobin A1c 6.1(H) <6.0 % [facility] Comment:Hemoglobin A1C Refer ence Range Adults: 4.8 - 6.0 % Non diabetic: < 6.0 % Goal: < 7.0 %Additional Action Suggested: > 8.0 %Note: Hemoglobin A1c results are invalid for patients with abnormal amounts of HbF. Blood transfusions may impact the HbA1c concentration in the patient sample. Estimated Average Glucose 128 mg/dL [facility] Comment:eAG = Estimated ave rage glucose which is %A1C expressed asaverage glucose, using the formula of the V8V-KppueghQqqqelb Glucose study (ADAG), Diabetes Care, Vol.31,#8,Apr. 2007 Blood Venous blood specimen / Unknown 01/13/2025 10:59 AM EDT 01/13/2025 10:59 AM EDT us Justice Hartman MD LAB BLOOD ORDERABL ES Final Result Performing Organization Address [facility] Co de Phone Number [facility] [address] [place] [address] [phone] * Lipid Panel, Standard (01/13/2025 10:59 AM EDT) Triglycerides 83 <150 mg/dL [facility] Comment:Desirable Triglyceri de: less than 150 mg/dLBorderline High Triglyceride 150-199 mg/dLHigh Triglyceride: 200-499 mg/dLVery High Triglyceride: greater than or equal to 5OO mg/dL Cholesterol 135 <200 mg/dL [facility] Comment:Desirable Cholestero l: less than 200 mg/dLBorderline High Cholesterol: 200-239 mg/dLHigh Cholesterol: greater than 239 mg/dL LDL Cholesterol Calculated 72 <100 mg/dL [facility] Comment:Desirable LDL: less than 100 mg/dLNear Optimal/Above Optimal LDL: 110- 129 mg/dLBorderline High LDL: 130-159 mg/dLHigh LDL: 160-189 mg/dLVery High LDL: greater than or equal to 190 mg/dL HDL Cholesterol 47 >40 mg/dL [facility] Comment:Desirable HDL: great er than 40 mg/dL Note: This HDL assay may give artificially low results in patients with liver disease. Blood Venous blood specimen / Unknown 01/13/2025 10:59 AM EDT 01/13/2025 10:59 AM EDT us Justice Hartman MD LAB BLOOD ORDERABL ES Final Result Performing Organization Address City/[facility]/ZIP Co de Phone Number [facility] [address] [place] [address] [phone] * Colonoscopy (11/16/2020 4:19 PM EST) Anatomical Region Laterality Modality Endoscopy us Historical Provider ENDOSCOPY PROCEDURE ORDER KIRSTEN Final Result from Last 3 Months or Most Recently Relevant to Health Maintenance Insurance [facility] STAND[facility] Care Teams Carbonation Equipment Operator Relationship Specialty Start Date End Date Justice Ovalle MD [address] [place] [phone] PCP - General Internal Medicine 09/27/23
--- OUTSIDE RECORDS SUMMARY | 2025-05-25 18:02 | XMS_ITS | Encounter Summary ---
Author Organization [employer] Address 75 [facility] 7 [place] [address] Care Team Providers Care Ammonium Sulfate Operator Name Role Phone Justice Ovalle MD Primary Care Prov ider Encounter Details Date Type Department Care Team ([facility] st Contact Info) Description 04/19/2025 Orders Only [facility] MED & PEDS [address] [place], [place] [phone] Justice Ovalle MD [address] [place] [address] Social History Tobacco Use Types Packs/Day Years [...] documented as of this encounter Care Teams Ammonium Sulfate Operator Relationship Specialty Start Date End Date Justice Ovalle MD [address] [place] [phone] PCP - General Internal Medicine 09/27/23 documented as of this encounter
--- OUTSIDE RECORDS SUMMARY | 2025-05-25 18:02 | XMS_ITS | Encounter Summary ---
Author Organization [employer] Address [address] [facility] [address] 7[address] [place] [address] Care Team Providers Care Wirer Street Light Name Role Phone Justice Ovalle MD Primary Care Prov ider Encounter Details Date Type Department Care Team ([facility] st Contact Info) Description 06/05/2024 Orders Only [facility] CHC MED & PEDS [address] [place] [address] ProviderJoseph MD Social History Tobacco Use Types [...] documented as of this encounter Care Teams Wirer Street Light Relationship Specialty Start Date End Date Justice Ovalle MD [address] [place] [phone] PCP - General Internal Medicine 09/27/23 documented as of this encounter
== END 2025-05-24 12:28 | disposition home or self-care (01) ==
LOC: HO.LNP 12:27
PROVIDERS: PCP Internal Medicine; Visit Provider Internal Medicine Gastroenterology
DX: G89.29 Other chronic pain (principal); R10.9 Unspecified abdominal pain; Z80.0 Family history of malignant neoplasm of digestive organs
CPT/HCPCS: 83013; 99212

== ENCOUNTER 2025-05-24 12:27 | Outpatient (AMB) | payer MEDICAID, SELFPAY ==
--- NOTE | 2025-05-24 12:32 | MHC.OFFVIS ---
Vital Signs 05/24/25 12:44 Height 5 ft 11 in Weight 212 lb BMI 29.6 BP 134/72 Blood Pressure Location Rt brachial Position Sitting Pulse 68 Pulse Source Pulse Oximeter Pulse Oximetry (%) 99 Oxygen Delivery Method Room Air Intake Visit Reasons: lab results follow up Intake Note: Est pt for mgmt of chronic abd pain. Review most recent labs. CC; Pt denies any GI changes or new sx since last visit. Welfare Eligibility Worker Required: No Accompanied by: Spouse Allergies latex Allergy (Verified 02/02/25 11:24) Rash Sulfa (Sulfonamide Antibiotics) Allergy (Verified 02/02/25 11:24) Itching HPI HPI lab results follow up: Details: 74 yr old m with hx of gallstones, HLP being seen for follow up RECAP: He came to ED with abdominal pain 11/06 had labs with mildly raised alk phos, rest of LFT nml CT with diverticulosis, and gallstones noted, renal cysts and BPH EGD/colonoscopy-11/16/20-esophagitis, gastritis, hmeorrhoids, polyp--TA h pylori pos--treatment given US 02/07 Impression: 1. Cholelithiasis without evidence of cholecystitis. 2. Incidental renal cortical cysts bilaterally. 3. Bowel gas limited the evaluation of the midline structures including the left lobe of the liver. CT or MRI with contrast of the abdomen may be of further diagnostic. LFT 04/20/25-- nml INTERIM: his sister had panc ca aged 65 so he is concerned about it weight is stable he does have reflux symptoms but not that bad no issues with weight or appetite no abn stools EXAM: GENERAL: The patient is well developed and nontoxic. VITAL SIGNS:see workflow HEENT: Nonicteric sclerae, PERRLA, EOMI. Oropharynx clear. Moist mucous membranes. Conjunctivae appear well perfused. No thyroid mass. CHEST: Chest wall is nontender. HEART: Regular rate and rhythm without murmurs. LUNGS: Clear to auscultation bilaterally. ABDOMEN: Soft, positive bowel sounds, nontender, no organomegaly.no flank tenderness SKIN: No rash, no excessive bruising, petechiae, or purpura. NEUROLOGIC: Cranial nerves II-XII intact without motor/sensory deficit. Psych: normal affect A/P: H pylori gastritis, s/p eradication 2/ gallstones, not symptomatic 3/ FH of pancreatic ca 4/ colon polyp PLAN: 1/ Will check h pylori eradication 2/ MRI pancreas 3/ colonoscopy next year [facility] Medical History CAD (coronary artery disease) H/O angiography Seborrhea capitis Constipation Hypercholesterolemia Surgical History History of esophagogastroduodenoscopy (EGD) H/O colonoscopy History of prostatectomy History of appendectomy Family History Father No problems noted. Mother No problems noted. Social History Household Members: Spouse and Children Housing: House Alcohol intake: never Patient Tobacco Use Status: Never used Tobacco e-Cigarette/Vaping Use: Never Used Second Hand Smoke Exposure: No service: No Current occupational status: retired Physical Exam Vital Signs: Last Vital Signs Pulse 68 05/24/25 12:44 BP 134/72 05/24/25 12:44 Pulse Ox 99 05/24/25 12:44 Oxygen Delivery Method Room Air 05/24/25 12:44 BMI result Body Mass Index 29.6 Assessment & Plan Assessment & Plan (1) FH: pancreatic cancer: Code(s): Z80.0 - Family history of malignant neoplasm of digestive organs Category: Medical Plan: as above Orders: Orders MR abdomen wo/w con Today Z80.0 - Family history of malignant neoplasm of digestive organs H Pylori Breath Test Today Coding Level of Care Code Est Pt Level 3 (65543) Diagnoses FH: pancreatic cancer Z80.0
[2025-05-24 12:44] VITALS: BP 134/72; PULSE 68; O2SAT 99; BMI 29.6
--- OUTSIDE RECORDS SUMMARY | 2025-05-24 14:45 | XMS_ITS | Encounter Summary ---
Author Organization [employer] Address [address] [place] [address] Care Team Providers Care Personnel Adviser Name Role Phone Justice Ovalle MD Primary Care Prov ider Reason for Visit * Reason Onset Date Comments Appointment Request 12/23/2024 Encounter Details Date Type Department Care Team (Late st Contact Info) Description 12/23/2024 Telephone [facility] [address] [place] [address] Justice Ovalle MD [address] [place] [address] Appointment Request Social History Tobacco Use Types [...] documented as of this encounter Care Teams Personnel Adviser Relationship Specialty Start Date End Date Justice Ovalle MD [address] [place] [address] PCP - General Internal Medicine 09/27/23 documented as of this encounter
--- OUTSIDE RECORDS SUMMARY | 2025-05-24 14:45 | XMS_ITS | Encounter Summary ---
Author Organization [employer] Address [address] [facility] 7 [place] [address] Care Team Providers Care Woodworking Machine Setter Name Role Phone Justice Ovalle MD Primary Care Prov ider Encounter Details Date Type Department Care Team ([facility] st Contact Info) Description 04/19/2025 Orders Only [facility] MED & PEDS [address] [place], [place] [phone] Justice Ovalle MD [address] [place] [phone] Social History Tobacco Use Types Packs/Day Years [...] documented as of this encounter Care Teams Woodworking Machine Setter Relationship Specialty Start Date End Date Justice Ovalle MD [address] [place] [phone] PCP - General Internal Medicine 09/27/23 documented as of this encounter
--- OUTSIDE RECORDS SUMMARY | 2025-05-24 14:45 | XMS_ITS | Encounter Summary ---
Author Organization [employer] Address [address] [facility] [address] [place] [address] Care Team Providers Care Electrical Plumbing Supervisor Name Role Phone Justice Ovalle MD Primary Care Prov ider Encounter Details Date Type Department Care Team ([facility] st Contact Info) Description 06/05/2024 Orders Only [facility] MED & PEDS [address] [place] [address] ProviderJoseph MD Social History Tobacco Use Types [...] documented as of this encounter Care Teams Electrical Plumbing Supervisor Relationship Specialty Start Date End Date Justice Ovalle MD [address] [place] [phone] PCP - General Internal Medicine 09/27/23 documented as of this encounter
--- OUTSIDE RECORDS SUMMARY | 2025-05-24 14:45 | XMS_ITS | Clinical Summary ---
Author Organization [employer] Address 75 [facility] 7t [place] [address] Care Team Providers Care Refueling Ramp Attendant Name Role Phone Justice Ovalle MD Primary Care Prov ider Allergies Active Allergy Reactions Criticality Noted Date Comments 2,4-D Dimethylamine 06/13/2021 Medications ergocalciferol (Vitamin D2) 1.25 MG (55399 UT) capsule TAKE 1 CAPSULE BY MOUTH [...] per day. Active famotidine (Pepcid) 20 MG tabletIndicatio ns:Epigastric pain Take 1 tablet (20 mg) by mouth Once per day. 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 Assessment & Plan (09/03/2023 [...] Plan (09/03/2023 8:04 PM EST): Followed [facility] referral for f/u Encounters Date Type Department Care Team Description 04/23/2025 2:00 PM EDT Office Visit [facility] MED & PEDS [address] [place] [address] Justice Ovalle MD Painless hematuria (Primary Dx); Bilateral flank pain 04/23/2025 Travel 04/22/2025 Results Follow-Up [facility] MEDICINE [address] [place] [phone] Andra Chase NP POCT urinalysis dipstick manually resulted, CBC auto differential 04/21/2025 Results Follow-Up [facility] MED[facility] [address] [place] [phone] Andra Chase NP CBC auto differential, Comprehensive Metabolic Panel 04/20/2025 Orders Only GENERIC EXTERNAL DATA DEPARTMENT Provider, Generic External Data 04/19/2025 3:40 PM EDT Office Visit [facility] [address] [place] [address] Appram, Andra, SUPERINTENDENT PRODUCTION Dark yellow-colored urine (Primary Dx); Epigastric pain; Right upper quadrant abdominal tenderness without rebound tenderness; Cardiac murmur 04/19/2025 Orders Only [facility] MED & PEDS [address] [place] [address] Justice Ovalle MD 04/19/2025 Travel 04/19/2025 Telephone [facility] MED & PEDS [address] [place] [address] Justice Ovalle MD Lab Orders 04/19/2025 Telephone [facility] MED [facility] PEDS [address] [place] [address] Justice Ovalle MD Nurse Triage from Last [...] the past 12 months, has t he [employer], oil or water [employer] threatened to shut off services in your [...] series) 2023 COVID-19 Vaccine ( - season) 2025 04/09/2022, 11/28/2020, 11/12/2020, Additional history exists Influenza [...] Media Lot # [id number] Lot# Expiration Date [id number] Urine 04/23/2025 4:17 PM EDT Justice Hartman MD POINT OF C ARE TEST ENTER/EDIT ORDERABLES Edited Result - Final * (ABNORMAL) CBC auto differential (04/20/2025 8:55 AM EDT) Only the most recent of2 resultswithin the time period is included. White Blood Count 9.3 4.8 - 10.8 X10*3/uL [facility] Red Blood Count 5.72 4.60 - 5.80 X10*6/uL [facility] Hemoglobin 15.1 14.0 - 18.0 g/dl [facility] Hematocrit 45.9 42.0 - 52.0 % [facility] Mean Corpuscular Volume 80.2 80.0 - 98.0 fL [facility] Mean Corpuscular Hemoglobin 26.4(L) 27.0 - 33.0 pg [facility] Mean Corpuscular HGB Conc 32.9 31.0 - 36.0 g/dl [facility] Red Cell Distribution Width 16.0 11.0 - 16.0 % [facility] Platelet Count 264 160 - 400 X10*3/uL [facility] Mean Platelet Volume 10.4 9.4 - 12.4 fL [facility] Neutrophils Percent Auto 57.8 45 - 73 % [facility] Imm Gran Pct Auto 0.2 0.0 - 0.4 % [facility] Lymphocytes Percent Auto 32.6 20 - 40 % [facility] Monocytes Percent Auto 6.6 2 - 11 % [facility] Eosinophils Percent Auto 2.3 0 - 4 % [facility] Basophils Percent Auto 0.5 0 - 2 % [facility] NRBC Pct Auto 0.0 0.0 - 0.2 /100WBC [facility] Neutrophils Absolute Auto 5.3 2.0 - 8.3 x10*3/uL [facility] Imm Gran Abs Auto 0.02 0.00 - 0.03 X10*3/uL [facility] Lymphocytes Absolute Auto 3.0 1.2 - 4.9 X10*3/uL [facility] Monocytes Absolute Auto 0.6 0.1 - 1.2 X10*3/uL [facility] Eosinophils Absolute Auto 0.2 0.0 - 0.4 X10*3/uL [facility] Basophils Absolute Auto 0.1 0.0 - 0.2 X10*3/uL [facility] NRBC Abs Auto 0.000 0.0 - 0.012 X10*3/uL [facility] 04/20/2025 8:55 AM EDT 04/20/2025 11:14 AM EDT us Generic External Data Provider LAB BLOOD ORDERAB LES Final Result [facility] [address] [place] [address] [phone] * (ABNORMAL) Alkaline phosphatase, isoenzymes (04/20/2025 8:55 AM EDT) Alkaline Phosphatase 101 35 - 144 U/L [facility] Intestinal Isoenzymes 0(A) 1 - 24 % [facility] Bone Isoenzymes 39 28 - 66 % [facility] Liver Isoenzymes 61 25 - 69 % [facility] Placental Isoenzymes 0 <=0 % [facility] Macrohepatic Isoenzymes 0 <=0 % [facility] Comment:THIS TEST WAS PERFOR MED AT:[facility] [place] [address]TIQKPCDROBBIN MAURER MD,PHD Interpretation [facility] 04/20/2025 8:55 AM EDT 04/20/2025 11:14 AM EDT us Generic External Data Provider LAB BLOOD ORDERAB LES Final Result Performing Organization Address [facility]/ZIP Co de Phone Number [facility] [address] [place] [address] [phone] * Mitochondrial Antibody with Reflex to Titer (04/20/2025 8:55 AM EDT) Pathologist [facility] Mitochondrial Antibodies NEGATIVE NEGATIVE [facility] Comment:THIS TEST WAS PERFOR MED AT:[facility] [address] [id number] NORWOOD MD Mitochondrial Ab Titer [facility] 04/20/2025 8:55 AM EDT 04/20/2025 11:14 AM EDT us Generic External Data Provider LAB BLOOD ORDERAB LES Final Result Performing Organization Address [facility]/ZIP Co de Phone Number [facility] [address] [place] [address] [phone] * (ABNORMAL) Comprehensive Metabolic Panel (04/20/2025 8:55 AM EDT) Pathologist [facility] Sodium 142 135 - 145 mmol/L [facility] Potassium 3.8 3.3 - 5.1 mmol/L [facility] Chloride 110(H) 96 - 108 mmol/L [facility] Carbon Dioxide 24 22 - 29 mmol/L [facility] Anion Gap 12 12 - 20 [facility] Urea Nitrogen (BUN) 18(H) 9 - 16 mg/dL [facility] Creatinine, Serum 0.97 0.5 - 1.4 mg/dL [facility] Estimated Glomerular Filt Rate >60 [facility] Comment:Chronic Kidney Disea se: Estimated GFR < 60 mL/min/[id number] Kidney Disease: Estimated GFR < 15 mL/min/1.73m2 Glucose 96 60 - 115 mg/dL [facility] Calcium 9.1 8.4 - 10.2 mg/dL [facility] Bilirubin, Total 0.6 0.0 - 1.0 mg/dL [facility] Aspartate Amino Transferase 22 5 - 37 U/L [facility] Alanine Aminotransferase 15 0 - 40 U/L [facility] Total Protein 7.0 6.5 - 8.0 g/dL [facility] Albumin Level 4.3 3.5 - 5.0 g/dL [facility] Alkaline Phosphatase 111 39 - 117 U/L [facility] 04/20/2025 8:55 AM EDT 04/20/2025 11:14 AM EDT us Generic External Data Provider LAB BLOOD ORDERAB LES Final Result [facility] [address] [place] [phone] * (ABNORMAL) Hemoglobin A1c (01/13/2025 10:59 AM EDT) Hemoglobin A1c 6.1(H) <6.0 % [facility] Comment:Hemoglobin A1C Refer ence Range Adults: 4.8 - 6.0 % Non diabetic: < 6.0 % Goal: < 7.0 %Additional Action Suggested: > 8.0 %Note: Hemoglobin A1c results are invalid for patients with abnormal amounts of HbF. Blood transfusions may impact the HbA1c concentration in the patient sample. Estimated Average Glucose 128 mg/dL [facility] Comment:eAG = Estimated ave rage glucose which is %A1C expressed asaverage glucose, using the formula of the T0W-HlrkktlNyxedpt Glucose study (ADAG), Diabetes Care, Vol.31,#8,Apr. 2007 Blood Venous blood specimen / Unknown 01/13/2025 10:59 AM EDT 01/13/2025 10:59 AM EDT us Justice Hartman MD LAB BLOOD ORDERABL ES Final Result Performing Organization Address [facility] Co de Phone Number [facility] [address] [place] [address] [phone] * Lipid Panel, Standard (01/13/2025 10:59 AM EDT) Triglycerides 83 <150 mg/dL [facility] Comment:Desirable Triglyceri de: less than 150 mg/dLBorderline High Triglyceride 150-199 mg/dLHigh Triglyceride: 200-499 mg/dLVery High Triglyceride: greater than or equal to 5OO mg/dL Cholesterol 135 <200 mg/dL [facility] Comment:Desirable Cholestero l: less than 200 mg/dLBorderline High Cholesterol: 200-239 mg/dLHigh Cholesterol: greater than 239 mg/dL LDL Cholesterol Calculated 72 <100 mg/dL [facility] Comment:Desirable LDL: less than 100 mg/dLNear Optimal/Above Optimal LDL: 110- 129 mg/dLBorderline High LDL: 130-159 mg/dLHigh LDL: 160-189 mg/dLVery High LDL: greater than or equal to 190 mg/dL HDL Cholesterol 47 >40 mg/dL [facility] Comment:Desirable HDL: great er than 40 mg/dL Note: This HDL assay may give artificially low results in patients with liver disease. Blood Venous blood specimen / Unknown 01/13/2025 10:59 AM EDT 01/13/2025 10:59 AM EDT us Justice Hartman MD LAB BLOOD ORDERABL ES Final Result Performing Organization Address City/[facility]/ZIP Co de Phone Number [facility] [address] [place] [address] [phone] * Colonoscopy (11/16/2020 4:19 PM EST) Anatomical Region Laterality Modality Endoscopy us Historical Provider ENDOSCOPY PROCEDURE ORDER KIRSTEN Final Result from Last 3 Months or Most Recently Relevant to Health Maintenance Insurance [facility] STANDARD Care Teams Refueling Ramp Attendant Relationship Specialty Start Date End Date Justice Ovalle MD [address] [place] [phone] PCP - General Internal Medicine 09/27/23
== END 2025-05-24 13:28 | disposition home or self-care (01) ==
LOC: HO.HGI 12:28
PROVIDERS: PCP Internal Medicine; Visit Provider Internal Medicine Gastroenterology
DX: Z80.0 Family history of malignant neoplasm of digestive organs (principal)
CPT/HCPCS: 99213

== ENCOUNTER → 2025-06-25 11:07 | Outpatient (BNV) | payer MEDICAID, SELFPAY | PROVIDERS: Visit Provider Radiology Diagnostic Radiology | DX: N20.0 Calculus of kidney (principal); K80.20 Calculus of gallbladder without cholecystitis without obstruction | CPT/HCPCS: 74183 ==

== ENCOUNTER 2025-06-25 11:08 | Outpatient (REF) | payer MEDICAID, SELFPAY ==
--- NOTE | ~2025-06-25 | MR_ITS ---
EXAMINATION: MR ABDOMEN WITHOUT THEN WITH IV CONTRAST HISTORY: Z80.0 - Family history of malignant neoplasm of digestive organs COMPARISON: Correlation is made with an abdominal ultrasound dated 02/05/[address] of the abdomen dated 11/06/2020. TECHNIQUE: Axial in and out of phase T1-weighted gradient echo, axial diffusion weighted, and axial and coronal HASTE T2 with fat saturation images were obtained through the abdomen. Subsequently, fat suppressed axial and coronal T1-weighted images were obtained after the intravenous administration of 10 mL Gadavist. FINDINGS: Liver: There is no loss of signal intensity in the liver on opposed phase imaging to suggest steatosis. There is no enhancing liver mass. The hepatic and portal veins are patent. There is no intrahepatic biliary dilatation. Gallbladder/biliary tree: Multiple calculi are noted in the gallbladder. The common bile duct is normal in caliber. No intraluminal filling defects are identified to suggest choledocholithiasis. Spleen: The spleen is unremarkable. Pancreas: The pancreas is unremarkable. There is no enhancing pancreatic mass. The pancreatic duct is normal in caliber. Adrenals: The adrenal glands are unremarkable. Kidneys: There are multiple bilateral renal cysts measuring up to 3.8 cm on the right and 3.4 cm on the left. The kidneys are otherwise unremarkable.. There is no hydronephrosis. Lymph nodes: There is no retroperitoneal lymphadenopathy in the upper abdomen. Fluid: There is no ascites in the upper abdomen. Visualized bowel: There is a small hiatal hernia. There is a small duodenal diverticulum. Visualized bones: The visualized bones demonstrate normal marrow signal intensity. MR/MR abdomen wo/w con IMPRESSION: Bilateral renal cysts as described. No evidence of malignancy. Electronically signed by: Derick Stewart MD 06/25/2025 12:24 PM EDT
== END 2025-06-25 11:09 | disposition home or self-care (01) ==
LOC: HO.MRI 11:08
PROVIDERS: Visit Provider Internal Medicine Gastroenterology
DX: Z80.0 Family history of malignant neoplasm of digestive organs (principal); N28.1 Cyst of kidney, acquired
CPT/HCPCS: 74183; A9585

== ENCOUNTER 2025-07-20 08:50 | Outpatient (REF) | payer MEDICAID, SELFPAY ==
--- OUTSIDE RECORDS SUMMARY | 2025-07-20 09:56 | XMS_ITS | Data Portability ---
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 Overview/History: 70 yo male who returned from international travel to [place] two days ago endorses < 24 hours of MCNEIL, runny nose, headache located behind forehead, intermittent, 7/10 at its worst, resting makes it better and sore throat. Endorses taking no OTC or prescription mediation. Denies fever, chills, changes in vision, eye pain, cough, wheezing, chest pain, palpitations, chest congestion, loss of taste or smell, nausea, vomiting or diarrhea. Exam: Non-toxic appearing, well nourished. A/Ox3, HEENT: Normal cephalic, skin intact. PERRL, arcus senilis bilaterally, normal mucous membranes, no evidence of foreign objects. no evidence of bleeding or discharge, TMs/ Canals clear without evidence of infection, no nasal discharge, posterior oropharynx w/ erythema, tonsils injected erythemic w/exudate noted in oropharynx, moist mucous membranes, no lymphadenopathy. LS CTA bilaterally. Normal RR on RA. No use of accessory muscles. HR and rhythm regular. S1, S2. No murmur, gallop, or rub/ Normal pulses. No edema. BS x4 quad. Abd soft, non-tender and non-distended. No hepatosplenomegaly. No CVA or suprapubic tenderness. Normal ROM, ambulating well around home without assistive device. Good CMS present. No rash, erythema or ecchymosis. Skin is clean dry and intact without evidence of wounds or lacerations. DDx considered, but not limited to: COVID-19 possible with symptoms, recent travel to and from [place], returning two days ago, symptoms and high community prevalence in that country Other viral URI possible with symptoms and air travel Work up/Results: POC rapid COVID-19 test which resulted negative. SARS COV-2 TIFFANY Plan/Discussion: POC rapid COVID test collected and tested. Collect SARS CoV-2 TIFFANY collected to be sent to for analysis and confirmation. Discussed the patient's need to remain self-quarantined regardless of his test result per CDC guidelines. Quarantine for 10 days from the start of symptoms and 24 hours with no fever and without antipyretic medication such as, Tylenol, or Advil (Acetaminophen or Ibuprofen respectively). COVID-19 symptoms include Fever or chills Cough Shortness of breath or difficulty breathing Fatigue Muscle or body aches Headache loss of taste or smell, sore throat, congestion or runny nose, nausea are gone. instruction discussed and provided. COVID test results should be completed in 2 to 4 days, you will receive a phone call with the results. Patient endorsed understanding and agrees with this plan. In order to obtain further information and compare any laboratory results/values, I have accessed old patient records. This information was pertinent in my medical decision making today. Time On Scene with Patient: 00:48:18 [email or web address] Not available 01/21/2021 10:48:37 Plan of Treatment Reminders Order Date Submit Date Provider Last Modified By Organization Details Last Modified Time Details Appointments None recorded. Lab rapid SARS CoV + SARS CoV 2 Ag, QL IA, respiratory specimen 2020 021 [email or web address] [facility], [address] [place] [address], [address], [place], [address], 11:48:03 SARS-CoV-2 N gene QL, TIFFANY + probe detection, nasopharynx 2020 021 [facility], [address] [facility], [place], [address], 00:41:27 Referral None recorded. Procedures None recorded. Surgeries None recorded. Imaging None recorded. Medication Orders None recorded. Patient TargetsNo targets recorded. Patient Instructions Encounter Date Encounter Id Patient Instructions Last Modified By Organization Details Last Modified Time 01/21/2021 [id number] [facility] came to you home today at your request to be seen for SARS CoV-2 TIFFANY testing to be sent to [facility] for definitive analysis. Currently you are asymptomatic. The CDC recommends the following: If you have NO SYMPTOMS, BUT you had a close contact (within 6 feet for more than 15 minutes) with someone know to have COVID-19, you will need a COVID-19 test AND you will need to quarantine/self-i solate for 10 days. Even if the test returns negative for infection. If you develop symptoms: Continue to rest, drink plenty of fluids, Refer to discharge instructions for Tylenol and ibuprofen dosing charts. If you develop symptoms to include (Shortness of breath or difficulty breathing, Fatigue, Muscle or body aches, New loss of taste or smell, Sore throat, Congestion or runny nose, Nausea or vomiting, Diarrhea) Follow up with your primary care physician or call [facility] to come back to reassess. Seek EMERGENCY MEDICAL ATTENTION IF YOU DEVELOP ANY OF THESE SYMPTOMS: Trouble breathing, Persistent pain or pressure in the chest, New confusion, Inability to wake or stay, awake, Bluish lips or face With the know sick contacts and the increasing prevalence of COVID-19 in the community you have a higher pre test probability (percent chance) of a positive result. REFER TO YOUR DISCHARGE INSTRUCTIONS FOR MORE INFORMATION ON THE CDC GUIDELINES REGARDING QUARANTINE/SELF-I SOLATION GUIDELINES. We will call you with the results of your test in 3 to 4 days. The Centers for Disease Control (CDC) Guidelines for exposure to SARS CoV-2 and need to self-quarantine report: If you have NO SYMPTOMS, BUT you had a close contact (within 6 feet for more than 15 minutes) with someone know to have COVID-19, you will need a COVID-19 test AND you will need to quarantine/self-i solate for 10 days. Even if the test returns negative for infection in If you have SYMPTOMS that suggest that might have COVID-19, you will need to quarantine/self-i solate until 10 days have passed since the onset of symptoms AND 10 days demonstrate the absence of fever for 24 hours without fever-reducing medications with improving symptoms. Even if the test returns negative for infection in either of instances, a negative test DOES NOT REMOVE THE NEED TO OBSERVE THE FULL LENGTH OF THE QUARENTINE. If your test results return positive for current infection with COVID-19, AND you: DO NOT symptoms = you must quarantine/self-i solate for 10 days AND demonstrate absence of fever for 24 hours without use of fever reducing medications AND improving symptoms. http://www.cdc.go v/coronaviurs/201 9-ncov/hcp/testin g-overview.html Symptoms associated with COVID-19 infection can last 2 weeks or more (compared to 7 days with the flu). Note: it is not uncommon for many viruses, including COVID-19, to result in a persistent cough lasting more than 2 weeks. Not available 01/21/2021 09:56:06 Reason for Referral None Reported. Results Created Date Observation Date Name Description Value Unit Range Abnormal Flag Note LastModifiedBy Organization Detail LastModifiedTime 01/22/20 21 01/21/2021 rapid SARS CoV + SARS CoV 2 Ag, QL IA, respi rator y speci men Covid-19 negati ve Not Available [facility] - Home [address] [place] [address], [phone], 01/21/2021 08:40:31 01/22/20 21 01/21/2021 rapid SARS CoV + SARS CoV 2 Ag, QL IA, respi rator y speci men Control Visual ized/V alid Not Available [facility] - Home [address] [place] [address], [phone], 01/21/2021 08:40:31 Result Notes None recorded. Medical Equipment None Reported. Allergies Allergen ID Allergen Name Allergen Category Reaction Reaction Severity Criticality Documentation Date Start Date Code Code System Note Provider Name and Address Organization Details Recorded Time 960371 Substance with sulfonami de structure and antibacte rial mechanism of action (substanc e) medicatio n Not available Not available Not available 01/21/2021 [id number] SNOMED ROGER BAIRD NP [address], [address], [place] [facility] 09:24:16 Medications Name Sig Start Date Stop Date Status Note LastModified by Organization Details LastModified Time atorvastatin 20 mg tablet TAKE 1 TABLET BY MOUTH EVERY DAY active Not Available Not Available No t Available ketoconazole 2 % shampoo APPLY TOPICALLY TWICE A WEEK active Not Available Not Available No t Available pantoprazole 20 mg tablet,delay ed release TAKE 1 TABLET BY MOUTH EVERY DAY active Not Available Not Available No t Available docusate sodium 100 mg capsule TAKE 1 CAPSULE BY MOUTH EVERY DAY NEEDED FOR CONSTIPATIO N active Not Available Not Available No t Available aspirin 81 mg chewable tablet TAKE 1 TABLET BY MOUTH EVERY DAY active Not Available Not Available No t Available Daily-Carissa tablet TAKE 1 TABLET BY MOUTH EVERY DAY active Not Available Not Available No t Available ursodiol 500 mg tablet TAKE 1 TABLET TWICE DAILY active Not Available Not Available Not Available cholecalcife rol (vitamin D3) 1,250 mcg (50,000 unit) capsule TAKE 1 CAPSULE EVERY WEEK active Not Available Not Available N ot Available Suprep Bowel Prep Kit 17.5 gram-3.13 gram-1.6 gram oral solution TAKE DIRECTED, BOWEL PREP active Not Available Not Available N ot Available Vitals Date Recorded Respiratory rate Oxygen saturation Oxygen saturation in Arterial blood by Pulse oximetry Body temperature Heart rate Systolic And Diastolic Provider Name and Address Organization Details Last Updated DateTime 16 /min 98 % 98 % 99.3 [degF] 70 /min 128/74 mm[Hg] Not Available [facility] 09:31:12 Social History Question Answer Notes LastModified by Organizat ion Details LastModified Time Tobacco Smoking Status Never Smoker ROGER BAIRD NP [address], [place], [address], [place] [facility] 01/21/2021 09:25:54 Do You Have An Advance Directive? Yes [email or web address] Information not available 01/21/2021 What Is Your Code Status? Full Code [email or web address] Information not available 01/21/2021 Within The Past 12 Months, Has It Happened That The Food You Bought Just Didn't Last And You Didn't Have Money To Get More. No Information not available 01/21/2021 Within The Past 12 Months, Have You Worried That Your Food Would Run Out Before You Got Money To Buy More. No [email or web address] Information not available 01/21/2021 Fall Risk: Do You Feel Unsteady When Standing Or Walking? No [email or web address] Information not available 01/21/2021 We Know That How And When People Interact With Friends And Family Can Be Very Different From Person To Person. How Often Do You Have The Opportunity To See Or Talk To People That You Care About And Feel Close To? (Ex: Talking To Friends On The Phone Or Visiting Friends Or Family Or Going To [employer] Or Club Meetings) 5 Or More Times Per Week [email or web address] Information not available 01/21/2021 Excessive Alcohol Or Drug Use No Information not available 01/21/2021 We Know From Many Of Our Patients That Covering All Of Their Costs Can Be Difficult At Times. This Can Cause Stress And Impact Health. In The Past Year, Have You Been Unable To Get Any Of The Following When It Was Really Needed? No Information not available 01/21/2021 What Is Your Housing Situation Today? I Have Housing [email or web address] Information not available 01/21/2021 Would You Like Help Connecting To Resources? None [email or web address] Information not available 01/21/2021 Sex: Unknown Functional Status None recorded. Mental Status None recorded. Family History Relationship Description Onset Age of this Age Resolved Age Notes LastModified by Organization Details LastModified Time Father No current problems or disability [email or web address] Not available 01/21 09:25:36 Mother No current problems or disability [email or web address] Not available 01/21 09:25:36 Medical History Condition Response Coronary Artery Disease N Depression N COPD N Cancer N Stroke N High Cholesterol Y Kidney Disease Asthma N Hypertension N Immunizations Vaccine Type Date Status Note Provider Nam geoffrey and Address Organization Details Recorded Time SARS-COV-2 (COVID-19) vaccine, UNSPECIFIED completed ROGER BAIRD, DONAVAN [address] [place] [address], [place], [address], [place] [facility] 01/21/2021 09:24:44 SARS-COV-2 (COVID-19) vaccine, UNSPECIFIED completed ROGER BAIRD NP [address], [place], [address], [place] [facility] 01/21/2021 09:25:05 Past Encounters Encounter ID Performer Location Encounter Start Date Encounter Closed Date Diagnosis/Indication Diagnosis SNOMED-CT Code Diagnosis ICD10 Code Diagnosis IMO Codes Diagnosis Note [id number] ROGER BAIRD NP [facility] HOME [address] [place] [address] 01/21/2021 08:36:32 01/23/2021 15:11:44 Exposure to communicable disease 261909300 Z20.9 Health Concerns Section Related Observation LastModified by Organization Detai ls LastModified Time None Recorded Concern Status LastModified by Organization Details LastModified Time None Recorded Advance Directives Directive Y: Payers Insurance Date Sequence Insurance Name Policy Number Policy Natarajan Covered Member ID Natarajan Member ID Guarantor Name 01/23/2021 1 [facility] [employer] - TOGETHER (MEDICAID HMO) [id number] Josue Warner [id number] Josue Warner 01/21/2021 1 *SELF PAY* Josue Warner [id number] Josue Warner 01/23/2021 1 [place] Josuezach Warner [id number] Josue Warner Notes Date Note Type Note Provider Name and Address Organization Details Recorded Time 01/21/2021 text/html COVID-19 Symptom s January 2020Reported by Patient 70 yo male who is new to and new to this provider and also new to these symptoms. Patient endorses recent air travel to and from [place], returning two days ago. Denies any direct sick contact but endorses most likely sick contact with general public. PMHx is significant for GERD, HLD and dual COVID-19 vaccinations. Endorses < 24 hours of MCNEIL, runny nose, headache located behind forehead, intermittent, 7/10 at its worst, resting makes it better and sore throat. Endorses taking no OTC or prescription mediation. Denies fever, chills, changes in vision, eye pain, cough, wheezing, chest pain, palpitations, chest congestion, loss of taste or smell, nausea, vomiting or diarrhea. ROGER BAIRD NP [address], [place], [address], [place] [facility] 01/21/2021 11:48:17
== END 2025-07-20 08:51 | disposition home or self-care (01) ==
LOC: HO.LAB 08:50
PROVIDERS: Visit Provider Internal Medicine Gastroenterology
DX: K80.50 Calculus of bile duct without cholangitis or cholecystitis without obstruction (principal); K59.00 Constipation, unspecified
CPT/HCPCS: 83013; 99211

== ENCOUNTER 2025-07-20 08:50 | Outpatient (AMB) | payer MEDICAID, SELFPAY ==
--- NOTE | 2025-07-20 09:17 | AM.OFFVISNUR ---
Intake Visit Reasons: H Pylori Intake Note: Pt presents for H Pylori BT. Protocols reviewed with pt and confirmed to be followed. Pt advised of instructions for the test and began testing at 0915. Testing was concluded at 0930. No questions or additional concerns per pt at the end of testing. Advised pt that we will contact them with results when they are obtained. Behavioral Technician Required: No Accompanied by: Spouse Allergies latex Allergy (Verified 02/02/25 11:24) Rash Sulfa (Sulfonamide Antibiotics) Allergy (Verified 02/02/25 11:24) Itching Nursing Note Pt is retesting for H Pylori per recent completion of abx therapy. Pt is testing to confirm eradication of infection. Assessment & Plan Assessment & Plan (1) Constipation: Code(s): K59.00 - Constipation, unspecified Category: Medical (2) Biliary colic: Code(s): K80.50 - Calculus of bile duct without cholangitis or cholecystitis without obstruction Category: Medical Orders: Orders H Pylori Breath Test Today K59.00 - Constipation, unspecified, K80.50 - Calculus of bile duct without cholangitis or cholecystitis without obstruction Coding Level of Care Code Established Pt Procedure Only Patient Type Established Diagnoses Constipation K59.00 Biliary colic K80.50
--- OUTSIDE RECORDS SUMMARY | 2025-07-20 09:21 | XMS_ITS | Encounter Summary ---
Author Organization [employer] Address 75 [facility] 7 [place] [address] Care Team Providers Care Electrical Installation Inspector Name Role Phone Justice Ovalle MD Primary Care Prov ider Encounter Details Date Type Department Care Team ([facility] st Contact Info) Description 04/19/2025 Orders Only [facility] CH[facility] MED & PEDS [address] [place], [place] [phone] Justice Ovalle MD 505 [place] [address] Social History Tobacco Use Types Packs/Day Years [...] as of this encounter Care Teams Electrical Installation Inspector Relationship Specialty Start Date End Date Justice Ovalle MD [address] [place] [phone] PCP - General Internal Medicine 09/27/23 documented as of this encounter
--- OUTSIDE RECORDS SUMMARY | 2025-07-20 09:21 | XMS_ITS | Encounter Summary ---
Author Organization [employer] Address [address] [place] [address] Care Team Providers Care Travel Writer Name Role Phone Justice Ovalle MD Primary Care Prov ider Reason for Visit * Reason Onset Date Comments Hearing Aids Forms 07/15/2025 Encounter Details Date Type Department Care Team (Late st Contact Info) Description 07/15/2025 Telephone [facility] MED[facility]INE [address] [place] [address] Justice Ovalle MD [address] [place] [address] Hearing Aids Forms Social History Tobacco Use Types Packs/Day Years [...] encounter Miscellaneous Notes * Telephone Encounter - Meena Matute RN - 07/15/2025 4:24 PM EDT TC placed to pt's daughter. Pt's daughter requesting follow up with PCP regarding hearing aids. Pt's daughter states pt dropped form off to [facility] for hearing aids over three weeks ago and they have notheard back. Pt's daughter placed on hold and TC placed to Cherelle Franklin [facility] Forms. No answer. TC placed to Gabriella [facility] Forms. Gabriella states Cherelle is the one who handles [facility] and can return call to pt's daughter as they are not available at this time. MRN and pt name provided to Gabirella and Gabriella states they will let Cherelle know to follow up with them. Advised pt's daughter of forms department message. Pt's daughter verbalized understanding. No appointment booked at time of call as forms to fo llow up with pt's daughter. Message forwarded to Cherelle as an FYI for follow up. documented in this encounter Plan of Treatment Not on file documented as of this encounter Visit Diagnoses Not on filedocumented in this encounter Additional Health Concerns Assessment Noted Time PHQ-9 Depression Total Score: 0 05/27/20 2:11 PM EDT documented as of this encounter Care Teams Travel Writer Relationship Specialty Start Date End Date Justice Ovalle MD [address] [place] [phone] PCP - General Internal Medicine 09/27/23 documented as of this encounter
--- OUTSIDE RECORDS SUMMARY | 2025-07-20 09:21 | XMS_ITS | Encounter Summary ---
Author Organization [employer] Address [address] [place] [address] Care Team Providers Care Pumping Plant Operator Name Role Phone Justice Ovalle MD Primary Care Prov ider Reason for Visit * Reason Onset Date Comments Hearing Aids Clearance form 07/19/2025 Encounter Details Date Type Department Care Team ([facility] st Contact Info) Description 07/19/2025 Telephone [facility] CHC MED & PEDS [address] [place], [place] [phone] Justice Ovalle MD [address] [place] [address] Hearing Aids Clearance form Social History Tobacco Use Types Packs/Day Years [...] encounter Miscellaneous Notes * Telephone Encounter - Edilia Vera MA - 07/19/2025 3:58 PM EST Called [facility] to see what pt needs to get hearing aids. Spoke to Isha which stated theyare just waiting for a Medical clearance form to be signed by PCP. Form was signed by PCP on 07/08/25 and faxed over by medical records, but Isha stated their office didn't receive form. Let Isha know I will fax form again, and she stated after their office receives form they will call ptfor an appointment for hearing aids. Faxed form again to [phone]. Called pt to let him know and there was no answer, lvm. documented in this encounter Plan of Treatment Not on file documented as of this encounter Visit Diagnoses Not on filedocumented in this encounter Additional Health Concerns Assessment Noted Time PHQ-9 Depression Total Score: 0 05/27/20 24 2:11 PM EDT documented as of this encounter Care Teams Pumping Plant Operator Relationship Specialty Start Date End Date Justice Ovalle MD [address] [place] [phone] PCP - General Internal Medicine 09/27/23 documented as of this encounter
--- OUTSIDE RECORDS SUMMARY | 2025-07-20 09:21 | XMS_ITS | Clinical Summary ---
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, will send it to [facility], told to keep a bp log [...] seth, he has 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 Assessment & Plan [...] Plan (09/03/2023 8:04 PM EST): Followed at [place] place referral for f/u Encounters Date Type Department Care Team Description 07/19/2025 Telephone [facility] MED & PEDS [address] [place] [address] Justice Ovalle MD Hearing Aids Clearance form 07/15/2025 Telephone [facility] [address] [place] [address] Justice Ovalle MD Hearing Aids Forms 05/24/2025 Orders Only GENERIC EXTERNAL DATA DEPARTMENT Provider, Generic External Data 04/23/2025 2:00 PM EDT Office Visit [facility] MED & PEDS [address] [place] [address] Justice Ovalle MD Painless hematuria (Primary Dx); Bilateral flank pain 04/23/2025 Travel 04/22/2025 Results Follow-Up [facility] [address] [place] [address] Andra Chase NP POCT urinalysis dipstick manually resulted, CBC auto differential 04/21/2025 Results Follow-Up [facility] [address] [place] [address] Andra Chase NP CBC auto differential, Comprehensive Metabolic Panel 04/20/2025 Orders Only GENERIC EXTERNAL DATA DEPARTMENT Provider, Generic External Data 04/19/2025 3:40 PM EDT Office Visit [facility] [address] [place] [address] Andra Chase NP Dark yellow-colored urine (Primary Dx); Epigastric pain; Right upper quadrant abdominal tenderness without rebound tenderness; Cardiac murmur 04/19/2025 Orders Only [facility] MED & PEDS [address] [place] [address] Justice Ovalle MD 04/19/2025 Travel 04/19/2025 Telephone [facility] MED & PEDS [address] [place] [address] Justice Ovalle MD Lab Orders 04/19/2025 Telephone [facility] MED & PEDS [address] [place] [address] Justice Ovalle MD Nurse Triage from Last [...] - 1-dose 75+ series) 2023 COVID-19 Vaccine (6 - season) 2025 04/09/2022, 11/28/2020, 11/12/2020, Additional [...] Procedure Name Priority Date/Time Associated Diagnosis Comments HELICOBACTER PYLORI, UREA BREATH TEST Routine 05/24/2025 1:19 PM EDT POCT URINALYSIS DIPSTICK Routine 04/23/2025 4:17 PM [...] Relevant to Health Maintenance Results * (ABNORMAL) Helicobacter pylori, Urea Breath Test (05/24/2025 1:19 PM EDT) H. pylori Breath Test Positive (A) Negative [facility] Comment:Antimicrobials, prot on pump inhibitors and bismuthpreparations are known to suppress H. pylori. Ingestingthese medications within two weeks prior to performing thebreath test may produce negative test results. A positiveresult is still clinically valid. 05/24/2025 1:19 PM EDT 05/25/2025 3:55 PM EDT us Generic External Data Provider LAB BODY FLUIDS A ND STOOLS ORDERABLES Final Result [facility] [address] [place] [phone] * (ABNORMAL) POCT Urinalysis (04/23/2025 4:17 PM [...] Media Lot # [id number] Lot# Expiration Date [id number] Urine 04/23/2025 4:17 PM EDT Justice Hartman MD POINT OF C ARE TEST ENTER/EDIT ORDERABLES Edited Result - Final * (ABNORMAL) CBC auto differential (04/20/2025 8:55 AM EDT) Only the most recent of2 resultswithin the time period is included. White Blood Count 9.3 4.8 - 10.8 X10*3/uL [facility] Red Blood Count 5.72 4.60 - 5.80 X10*6/uL [facility] Hemoglobin 15.1 14.0 - 18.0 g/dl [facility] Hematocrit 45.9 42.0 - 52.0 % [facility] Mean Corpuscular Volume 80.2 80.0 - 98.0 fL [facility] Mean Corpuscular Hemoglobin 26.4(L) 27.0 - 33.0 pg [facility] Mean Corpuscular HGB Conc 32.9 31.0 - 36.0 g/dl [facility] Red Cell Distribution Width 16.0 11.0 - 16.0 % [facility] Platelet Count 264 160 - 400 X10*3/uL [facility] Mean Platelet Volume 10.4 9.4 - 12.4 fL [facility] Neutrophils Percent Auto 57.8 45 - 73 % [facility] Imm Gran Pct Auto 0.2 0.0 - 0.4 % [facility] Lymphocytes Percent Auto 32.6 20 - 40 % [facility] Monocytes Percent Auto 6.6 2 - 11 % [facility] Eosinophils Percent Auto 2.3 0 - 4 % [facility] Basophils Percent Auto 0.5 0 - 2 % [facility] NRBC Pct Auto 0.0 0.0 - 0.2 /100WBC [facility] Neutrophils Absolute Auto 5.3 2.0 - 8.3 x10*3/uL [facility] Imm Gran Abs Auto 0.02 0.00 - 0.03 X10*3/uL [facility] Lymphocytes Absolute Auto 3.0 1.2 - 4.9 X10*3/uL [facility] Monocytes Absolute Auto 0.6 0.1 - 1.2 X10*3/uL [facility] Eosinophils Absolute Auto 0.2 0.0 - 0.4 X10*3/uL [facility] Basophils Absolute Auto 0.1 0.0 - 0.2 X10*3/uL [facility] NRBC Abs Auto 0.000 0.0 - 0.012 X10*3/uL [facility] 04/20/2025 8:55 AM EDT 04/20/2025 11:14 AM EDT us Generic External Data Provider LAB BLOOD ORDERAB LES Final Result [facility] [address] [place] [phone] * (ABNORMAL) Alkaline phosphatase, isoenzymes (04/20/2025 8:55 AM EDT) Alkaline Phosphatase 101 35 - 144 U/L [facility] Intestinal Isoenzymes 0(A) 1 - 24 % [facility] Bone Isoenzymes 39 28 - 66 % [facility] Liver Isoenzymes 61 25 - 69 % [facility] Placental Isoenzymes 0 <=0 % [facility] Macrohepatic Isoenzymes 0 <=0 % [facility] Comment:THIS TEST WAS PERFOR MED AT:[facility]ar/[facility] [place] [id number] MAURER MD,PHD Interpretation TNP [facility] 04/20/2025 8:55 AM EDT 04/20/2025 11:14 AM EDT us Generic External Data Provider LAB BLOOD ORDERAB LES Final Result Performing Organization Address [facility]/ZIP Co de Phone Number [facility] [address] [place] [address] [phone] * Mitochondrial Antibody with Reflex to Titer (04/20/2025 8:55 AM EDT) Mitochondrial Antibodies NEGATIVE NEGATIVE [facility] Comment:THIS TEST WAS PERFOR MED AT:[employer] [place] [id number] NORWOOD MD Mitochondrial Ab Titer TNP [facility] 04/20/2025 8:55 AM EDT 04/20/2025 11:14 AM EDT Generic External Data Provider LAB BLOOD ORDERAB LES Final Result Performing Organization Address [facility]/ZIP Co de Phone Number [facility] [address] [place] [phone] [phone] * (ABNORMAL) Comprehensive Metabolic Panel (04/20/2025 8:55 AM EDT) Pathologist [facility] Sodium 142 135 - 145 mmol/L [facility] Potassium 3.8 3.3 - 5.1 mmol/L [facility] Chloride 110(H) 96 - 108 mmol/L [facility] Carbon Dioxide 24 22 - 29 mmol/L [facility] Anion Gap 12 12 - 20 [facility] Urea Nitrogen (BUN) 18(H) 9 - 16 mg/dL [facility] Creatinine, Serum 0.97 0.5 - 1.4 mg/dL [facility] Estimated Glomerular Filt Rate >60 [facility] Comment:Chronic Kidney Disea se: Estimated GFR < 60 mL/min/1.72b9Ovaust Kidney Disease: Estimated GFR < 15 mL/min/1.73m2 Glucose 96 60 - 115 mg/dL [facility] Calcium 9.1 8.4 - 10.2 mg/dL [facility] Bilirubin, Total 0.6 0.0 - 1.0 mg/dL [facility] Aspartate Amino Transferase 22 5 - 37 U/L [facility] Alanine Aminotransferase 15 0 - 40 U/L [facility] Total Protein 7.0 6.5 - 8.0 g/dL [facility] Albumin Level 4.3 3.5 - 5.0 g/dL [facility] Alkaline Phosphatase 111 39 - 117 U/L [facility] 04/20/2025 8:55 AM EDT 04/20/2025 11:14 AM EDT us Generic External Data Provider LAB BLOOD ORDERAB LES Final Result Performing Organization Address [facility] Co de Phone Number [facility] [address] [place] [phone] * (ABNORMAL) Hemoglobin A1c (01/13/2025 10:59 AM EDT) Hemoglobin A1c 6.1(H) <6.0 % [facility] Comment:Hemoglobin A1C Refer ence Range Adults: 4.8 - 6.0 % Non diabetic: < 6.0 % Goal: < 7.0 %Additional Action Suggested: > 8.0 %Note: Hemoglobin A1c results are invalid for patients with abnormal amounts of HbF. Blood transfusions may impact the HbA1c concentration in the patient sample. Estimated Average Glucose 128 mg/dL [facility] Comment:eAG = Estimated ave rage glucose which is %A1C expressed asaverage glucose, using the formula of the [id number]-[id number] Glucose study (ADAG), Diabetes Care, Vol.31,#8,2007 Blood Venous blood specimen / Unknown 01/13/2025 10:59 AM EDT 01/13/2025 10:59 AM EDT us Justice Hartman MD LAB BLOOD ORDERABL ES Final Result Performing Organization Address [facility] Co de Phone Number [facility] [address] [place] [phone] * Lipid Panel, Standard (01/13/2025 10:59 AM EDT) Triglycerides 83 <150 mg/dL [facility] Comment:Desirable Triglyceri de: less than 150 mg/dLBorderline High Triglyceride 150-199 mg/dLHigh Triglyceride: 200-499 mg/dLVery High Triglyceride: greater than or equal to 5OO mg/dL Cholesterol 135 <200 mg/dL [facility] Comment:Desirable Cholestero l: less than 200 mg/dLBorderline High Cholesterol: 200-239 mg/dLHigh Cholesterol: greater than 239 mg/dL LDL Cholesterol Calculated 72 <100 mg/dL [facility] Comment:Desirable LDL: less than 100 mg/dLNear Optimal/Above Optimal LDL: 110- 129 mg/dLBorderline High LDL: 130-159 mg/dLHigh LDL: 160-189 mg/dLVery High LDL: greater than or equal to 190 mg/dL HDL Cholesterol 47 >40 mg/dL [facility] Comment:Desirable HDL: great er than 40 mg/dL Note: This HDL assay may give artificially low results in patients with liver disease. Blood Venous blood specimen / Unknown 01/13/2025 10:59 AM EDT 01/13/2025 10:59 AM EDT Justice Hartman MD LAB BLOOD ORDERABL ES Final Result [facility] [address] [place] [phone] * Colonoscopy (11/16/2020 4:19 PM EST) Anatomical Region Laterality Modality Endoscopy Historical Provider ENDOSCOPY PROCEDURE ORDER KIRSTEN Final Result from Last 3 Months or Most Recently Relevant to Health Maintenance Insurance [facility] Care Teams Material Chaser Relationship Specialty Start Date End Date Justice Ovalle MD [address] [place] [phone] PCP - General Internal Medicine 09/27/23
--- OUTSIDE RECORDS SUMMARY | 2025-07-20 09:21 | XMS_ITS | Encounter Summary ---
Author Organization [employer] Address [address] [place] [address] Care Team Providers Care Transfer Man Name Role Phone Justice Ovalle MD Primary Care Prov ider Reason for Visit * Reason Onset Date Comments Appointment Request 12/23/2024 Encounter Details Date Type Department Care Team (Late st Contact Info) Description 12/23/2024 Telephone [facility] MEDICINE [address] [place] [address] Justice Ovalle MD [address] [place] [address] Appointment Request Social History Tobacco Use Types [...] documented as of this encounter Care Teams Transfer Man Relationship Specialty Start Date End Date Justice Ovalle MD [address] [place] [address] PCP - General Internal Medicine 09/27/23 documented as of this encounter
--- OUTSIDE RECORDS SUMMARY | 2025-07-20 09:21 | XMS_ITS | Encounter Summary ---
Author Organization [employer] Address [address] [facility] [address] [place] [address] Care Team Providers Care Financial Services Representative Name Role Phone Justice Ovalle MD Primary Care Prov ider Encounter Details Date Type Department Care Team ([facility] st Contact Info) Description 06/05/2024 Orders Only [facility] MED & PEDS [address] [place] [address] ProviderJoseph MD Social History Tobacco Use Types [...] documented as of this encounter Care Teams Financial Services Representative Relationship Specialty Start Date End Date Justice Ovalle MD [address] [place] [phone] PCP - General Internal Medicine 09/27/23 documented as of this encounter
== END 2025-07-20 09:36 | disposition home or self-care (01) ==
LOC: HO.HGI 08:50
PROVIDERS: Visit Provider Internal Medicine Gastroenterology
DX: K59.00 Constipation, unspecified (principal); K80.50 Calculus of bile duct without cholangitis or cholecystitis without obstruction

== ENCOUNTER 2025-07-29 08:55 | Outpatient (REF) | payer MEDICAID, SELFPAY ==
--- OUTSIDE RECORDS SUMMARY | 2025-07-29 09:36 | XMS_ITS | Clinical Summary ---
Author Organization [employer] Address [address] [facility] [address]t [place] [address] Care Team Providers Care Music Theory Professor Name Role Phone Justice Ovalle MD Primary Care Prov ider Allergies Active Allergy Reactions Criticality Noted Date Comments 2,4-D Dimethylamine 06/13/2021 Medications ergocalciferol (Vitamin D2) 1.25 MG (43752 UT) capsule TAKE 1 CAPSULE BY MOUTH [...] (09/19/2023 2:54 PM EST): Not able to picker tender the medication, will send it to [facility] instead, told to keep a bp [...] seth, he has not been able to picker tender the medication Assessment & Plan (09/03/2023 8:02 [...] Plan (09/03/2023 8:04 PM EST): Followed at [facility], will place referral for f/u Encounters Date Type Department Care Team Description 07/29/2025 Orders Only [facility] PEDS [address] [place] [address] Justice Ovalle MD 07/19/2025 Telephone [facility] [address] [place] [address] Justice Ovalle MD Hearing Aids Clearance form 07/15/2025 Telephone [facility] MEDICINE [address] [place] [address] Justice Ovalle MD Hearing Aids Forms 05/24/2025 Orders Only GENERIC EXTERNAL DATA DEPARTMENT Provider, Generic External Data from Last 3 Months Immunizations Immunization Administration [...] BREATH TEST Routine 05/24/2025 1:19 PM EDT HEMOGLOBIN A1C Routine 01/13/2025 10:59 AM EDT Primary hypertension LIPID PANEL, STANDARD Routine 01/13/2025 10:59 AM EDT Primary hypertension COLONOSCOPY Routine 11/16/2020 4:19 PM EST from Last 3 Months or Most Recently Relevant to Health Maintenance Results * (ABNORMAL) Helicobacter pylori, Urea Breath Test (05/24/2025 1:19 PM EDT) H. pylori Breath Test Positive (A) Negative [facility] Comment:Antimicrobials, prot on pump inhibitors and bismuthpreparations are known to suppress H. pylori. Ingestingthese medications within two weeks prior to performing thebreath test may produce negative test results. A positiveresult is still clinically valid. 05/24/2025 1:19 PM EDT 05/25/2025 3:55 PM EDT us Generic External Data Provider LAB BODY FLUIDS A ND STOOLS ORDERABLES Final Result [facility] [address] [place] [phone] * (ABNORMAL) Hemoglobin A1c (01/13/2025 10:59 AM EDT) Hemoglobin A1c 6.1(H) <6.0 % [facility] Comment:Hemoglobin A1C Refer ence Range Adults: 4.8 - 6.0 % Non diabetic: < 6.0 % Goal: < 7.0 %Additional Action Suggested: > 8.0 %Note: Hemoglobin A1c results are invalid for patients with abnormal amounts of HbF. Blood transfusions may impact the HbA1c concentration in the patient sample. Estimated Average Glucose 128 mg/dL [facility] Comment:eAG = Estimated ave rage glucose which is %A1C expressed asaverage glucose, using the formula of the S5A-UbidtysGstedql Glucose study (ADAG), Diabetes Care, Vol.31,#8,Apr. 2007 Blood Venous blood specimen / Unknown 01/13/2025 10:59 AM EDT 01/13/2025 10:59 AM EDT us Justice Hartman MD LAB BLOOD ORDERABL ES Final Result Performing Organization Address [facility] Co de Phone Number [facility] [address] [place] [phone] * Lipid Panel, Standard (01/13/2025 10:59 AM EDT) Triglycerides 83 <150 mg/dL [facility] Comment:Desirable Triglyceri de: less than 150 mg/dLBorderline High Triglyceride 150-199 mg/dLHigh Triglyceride: 200-499 mg/dLVery High Triglyceride: greater than or equal to 5OO mg/dL Cholesterol 135 <200 mg/dL [facility] Comment:Desirable Cholestero l: less than 200 mg/dLBorderline High Cholesterol: 200-239 mg/dLHigh Cholesterol: greater than 239 mg/dL LDL Cholesterol Calculated 72 <100 mg/dL [facility] Comment:Desirable LDL: less than 100 mg/dLNear Optimal/Above Optimal LDL: 110- 129 mg/dLBorderline High LDL: 130-159 mg/dLHigh LDL: 160-189 mg/dLVery High LDL: greater than or equal to 190 mg/dL HDL Cholesterol 47 >40 mg/dL [facility] Comment:Desirable HDL: great er than 40 mg/dL Note: This HDL assay may give artificially low results in patients with liver disease. Blood Venous blood specimen / Unknown 01/13/2025 10:59 AM EDT 01/13/2025 10:59 AM EDT us Justice Hartman MD LAB BLOOD ORDERABL ES Final Result [facility] [address] [place] [phone] * Colonoscopy (11/16/2020 4:19 PM EST) Anatomical Region Laterality Modality Endoscopy us Historical Provider ENDOSCOPY PROCEDURE ORDER KIRSTEN Final Result from Last 3 Months or Most Recently Relevant to Health Maintenance Insurance [facility] STANDARD Care Teams Music Theory Professor Relationship Specialty Start Date End Date Justice Ovalle MD [address] [place] [phone] PCP - General Internal Medicine 09/27/23
--- OUTSIDE RECORDS SUMMARY | 2025-07-29 09:36 | XMS_ITS | Encounter Summary ---
Author Organization [employer] Address [address] [facility] 7 [place] [address] Care Team Providers Care Clinical Nursing Instructor Name Role Phone Justice Ovalle MD Primary Care Prov ider Encounter Details Date Type Department Care Team ([facility] st Contact Info) Description 07/29/2025 Orders Only [facility] [address] [place], [place] [phone] Justice Ovalle MD [address] [place] [address] Social History Tobacco Use Types Packs/Day Years [...] as of this encounter Care Teams Clinical Nursing Instructor Relationship Specialty Start Date End Date Justice Ovalle MD [address] [place] [phone] PCP - General Internal Medicine 09/27/23 documented as of this encounter
--- OUTSIDE RECORDS SUMMARY | 2025-07-29 09:36 | XMS_ITS | Encounter Summary ---
Author Organization [employer] Address [address] [facility] 7 [place] [address] Care Team Providers Care Spine Supervisor Name Role Phone Justice Ovalle MD Primary Care Prov ider Encounter Details Date Type Department Care Team ([facility] st Contact Info) Description 04/19/2025 Orders Only [facility] [address] [place], [place] [phone] Justice Ovalle MD [address] [place] [address] Social History Tobacco Use Types Packs/Day Years [...] documented as of this encounter Care Teams Spine Supervisor Relationship Specialty Start Date End Date Justice Ovalle MD [address] [place] [phone] PCP - General Internal Medicine 09/27/23 documented as of this encounter
--- OUTSIDE RECORDS SUMMARY | 2025-07-29 09:36 | XMS_ITS | Data Portability ---
Author Organization [place] [facility] Address [address] [facility] [address] [place] [address] Care Team Providers Care Product Representative Name Role Phone KRYSTAL OATES Primary Care Provider Assessment Encounter Date Assessment Date Assessment LastModified by Organization Details LastModified Time 01/21/2021 01/21/2021 Proper Personal Protective Equipment (PPE), including gloves, gown, shoe covers, eye protection and masks were donned and doffed appropriately and all equipment cleaned using approved technique with germicidal disposable wipes prior to and after care of this patient according to [facility]'s infection prevention protocols. Overview/History: 70 yo male [...] today. Time On Scene with Patient: 00:48:18 Not available 01/21/2021 10:48:37 Plan of Treatment Reminders Order Date Submit Date Provider Last Modified By Organization Details Last Modified Time Details Appointments None recorded. Lab rapid SARS CoV + SARS CoV 2 Ag, QL IA, respiratory specimen 2020 021 [email or web address] [facility], [address] [place] [address], [address], [place], [address], 11:48:03 SARS-CoV-2 N gene QL, TIFFANY + probe detection, nasopharynx 2020 021 [facility], [address] [facility], [place], [address], 00:41:27 Referral None recorded. Procedures None recorded. Surgeries None recorded. Imaging None recorded. Medication Orders None recorded. Patient TargetsNo targets recorded. Patient Instructions Encounter Date Encounter Id Patient Instructions Last Modified By Organization Details Last Modified Time 01/21/2021 [id number] [facility] home today at your request to be seen for SARS CoV-2 TIFFANY testing to be sent to [facility] for definitive analysis. Currently you are asymptomatic. [...] with your primary care physician or call [facility] to come back to reassess. Seek [...] persistent cough lasting more than 2 weeks. [email or web address] Not available 01/21/2021 09:56:06 Reason for Referral None Reported. Results Created Date Observation Date Name Description Value Unit Range Abnormal Flag Note LastModifiedBy Organization Detail LastModifiedTime 01/22/20 21 01/21/2021 rapid SARS CoV + SARS CoV 2 Ag, QL IA, respi rator y speci men Covid-19 negati ve Not Available [facility] Home [address] [place] [address], [phone], 01/21/2021 08:40:31 01/22/20 21 01/21/2021 rapid SARS CoV + SARS CoV 2 Ag, QL IA, respi rator y speci men Control Visual ized/V alid Not Available [facility] Home [address] [place] [address], [phone], 01/21/2021 08:40:31 Result Notes None recorded. Medical Equipment None Reported. Allergies Allergen ID Allergen Name Allergen Category Reaction Reaction Severity Criticality Documentation Date Start Date Code Code System Note Provider Name and Address Organization Details Recorded Time [id number] Substance with sulfonami de structure and antibacte rial mechanism of action (substanc e) medicatio n Not available Not available Not available 01/21/2021 [id number] SNOMED ROGER BAIRD NP [address], [address], [place] [facility] 09:24:16 Medications Name Sig [...] Status Never Smoker ROGER BAIRD NP [address], [place], [address], [place] [facility] 01/21/2021 09:25:54 Do You Have An Advance Directive? Yes [email or web address] Information not available 01/21/2021 What Is Your Code Status? Full Code [email or web address] Information not available 01/21/2021 Within The Past 12 Months, Has It Happened That The Food You Bought Just Didn't Last And You Didn't Have Money To Get More. No [email or web address] Information not available 01/21/2021 Within The Past 12 Months, Have You Worried That Your Food Would Run Out Before You Got Money To Buy More. No Information not available 01/21/2021 Fall Risk: Do You Feel Unsteady When Standing Or Walking? No [email or web address] Information not available 01/21/2021 We Know That How And When People Interact With Friends And Family Can Be Very Different From Person To Person. How Often Do You Have The Opportunity To See Or Talk To People That You Care About And Feel Close To? (Ex: Talking To Friends On The Phone Or Visiting Friends Or Family Or Going To [employer] Or Club Meetings) 5 Or More Times Per Week Information not available 01/21/2021 Excessive Alcohol Or Drug Use No [email or web address] Information not available 01/21/2021 We Know From Many Of Our Patients That Covering All Of Their Costs Can Be Difficult At Times. This Can Cause Stress And Impact Health. In The Past Year, Have You Been Unable To Get Any Of The Following When It Was Really Needed? No [email or web address] Information not available 01/21/2021 What Is Your Housing Situation Today? I Have Housing Information not available 01/21/2021 Would You Like Help Connecting To Resources? None [email or web address] Information not available 01/21/2021 Sex: Unknown Functional Status None recorded. Mental Status None recorded. Family History Relationship Description Onset Age of this Age Resolved Age Notes LastModified by Organization Details LastModified Time Father No current problems or disability [email or web address] Not available 01/21 09:25:36 Mother No current problems or disability [email or web address] Not available 01/21 09:25:36 Medical History Condition Response Coronary Artery Disease N High Cholesterol Y Cancer N Stroke N Hypertension N Depression N COPD N Asthma N Kidney Disease Immunizations Vaccine Type Date Status Note Provider Nam geoffrey and Address Organization Details Recorded Time SARS-COV-2 (COVID-19) vaccine, UNSPECIFIED completed ROGER BAIRD, DONAVAN [address] [place] [address], [place], [address], [place] [facility] 01/21/2021 09:24:44 SARS-COV-2 (COVID-19) vaccine, UNSPECIFIED completed ROGER BAIRD NP [address], [place], [address], [place] [facility] 01/21/2021 09:25:05 Past Encounters Encounter ID Performer Location Encounter Start Date Encounter Closed Date Diagnosis/Indication Diagnosis SNOMED-CT Code Diagnosis ICD10 Code Diagnosis IMO Codes Diagnosis Note [id number] ROGER BAIRD NP [facility] [address] [place] [address] 01/21/2021 08:36:32 01/23/2021 15:11:44 Exposure to communicable disease 347651202 Z20.9 Health Concerns Section Related Observation LastModified by Organization Detai ls LastModified Time None Recorded Concern Status LastModified by Organization Details LastModified Time None Recorded Advance Directives Directive Y: Payers Insurance Date Sequence Insurance Name Policy Number Policy Natarajan Covered Member ID Natarajan Member ID Guarantor Name 01/23/2021 1 [facility] [employer] - TOGETHER (MEDICAID HMO) [id number] Josue Warner [id number] Josue Warner 01/21/2021 1 *SELF PAY* Josue Warner [id number] Josue Warner 01/23/2021 1 [place] Josuezach Warner [id number] Josue Warner Notes Date Note Type [...] vomiting or diarrhea. ROGER BAIRD NP [address], [place], [address], [place] [facility] 01/21/2021 11:48:17
--- OUTSIDE RECORDS SUMMARY | 2025-07-29 09:36 | XMS_ITS | Encounter Summary ---
Author Organization [employer] Address [address] [place] [address] Care Team Providers Care Electrical Inspector Name Role Phone Justice Ovalle MD Primary Care Prov ider Encounter Details Date Type Department Care Team ([facility] st Contact Info) Description 06/05/2024 Orders Only [facility] [address] [place] [address] ProviderJoseph MD Social History Tobacco Use Types [...] as of this encounter Care Teams Electrical Inspector Relationship Specialty Start Date End Date Justice Ovalle MD [address] [place] [address] PCP - General Internal Medicine 09/27/23 documented as of this encounter
--- OUTSIDE RECORDS SUMMARY | 2025-07-29 09:36 | XMS_ITS | Encounter Summary ---
Author Organization [facility] Address [address] [place] [address] Care Team Providers Care Health Inspector Food Name Role Phone Justice Ovalle MD Primary Care Prov ider Reason for Visit * Reason Onset Date Comments Appointment Request 12/23/2024 Encounter Details Date Type Department Care Team (Late st Contact Info) Description 12/23/[address] [facility] MEDICINE [address] [place] [address] Justice Ovalle MD [address] [place] [address] Appointment Request Social History Tobacco Use Types [...] documented as of this encounter Care Teams Health Inspector Food Relationship Specialty Start Date End Date Justice Ovalle MD [address] [place] [address] PCP - General Internal Medicine 09/27/23 documented as of this encounter
[2025-07-29 09:55] LABS: Anion Gap 13 (12-20); Blood Urea Nitrogen 13 mg/dL (9-16); Calcium 9.6 mg/dL (8.4-10.2); Carbon Dioxide 22 mmol/L (22-29); Chloride 114 mmol/L (96-108); Cholesterol 133 mg/dL (<200); Estimated Glomerular Filt Rate > 60; HDL Cholesterol 45 mg/dL (>40); Potassium 4.5 mmol/L (3.3-5.1); Sodium 144 mmol/L (135-145); Triglycerides 94 mg/dL (<150)
[2025-07-29 10:15] LABS: PSA,Total (Free>4and<10) 0.90 ng/mL (0.00-4.00)
== END 2025-07-29 08:56 | disposition home or self-care (01) ==
LOC: HO.LAB 08:55
PROVIDERS: PCP Internal Medicine
DX: I25.10 Atherosclerotic heart disease of native coronary artery without angina pectoris (principal); R31.9 Hematuria, unspecified
CPT/HCPCS: 36415; 80048; 80061; 84153

== ENCOUNTER 2025-07-29 09:17 | Outpatient (REF) | payer MEDICAID, SELFPAY ==
--- NOTE | 2025-07-29 10:43 | MHC.AU.HA2 ---
Hearing Instrument Fitting- Adult- Binaural Date of Visit: 07/29/25 Hearing Instruments Dispensed: Right Ear: Make, Model, Color, Serial Number: O[employer]on Intent 2 miniRITE-R SN: [id number] Color: Black Trace Evidence Technician Repair Warranty: 08/19/2028 Trace Evidence Technician Loss and Damage Warranty: 08/19/2028 [facility] Service Plan: 07/29/2025 Battery Size: Rechargeable Factory Hand/Slim Tube: 3/85 Earmold/Dome/CShell/SlimTip: 8mm double reed dome Type of Wax Guard: miniFit Left Ear: Make, Model, Color, Serial Number: Oticon Intent 2 miniRITE-R SN: [id number] Color: Black Trace Evidence Technician Repair Warranty: 08/19/2028 Trace Evidence Technician Loss and Damage Warranty: 08/19/2028 [facility] Service Plan: 07/29/2026 Battery Size: Rechargeable Factory Hand/Slim Tube: 3/85 Earmold/Dome/CShell/SlimTip: 8mm double reed dome Type of Wax Guard: miniFit Accessories/Assistive Technology: Oticon Residential Specialist MiniRITE SN: [id number] Summary of Fitting: Performed feedback analyzer and real ear measures. Decreased to AM 2 due to loudness and decreased left slightly more for perceived balance. Discussed care, use, and rechargeability including manually turning on/off, VC use, changing domes and wax guards. Emphasized importance of daily, consistent use and acclimatization period. Practiced insertion and removal. Paired to cellphone. Discussed Oticon Pickling Tank Operator bipin, will download at home if desired. Recommendations: A hearing instrument follow-up was scheduled. Diagnosis Code(s): Primary Diagnosis: H90.3 Bilateral Sensorineural Hearing Loss Signature: Provider: Sebastian Matias, [facility]
== END 2025-07-29 09:18 | disposition home or self-care (01) ==
LOC: HO.HAP 09:17
PROVIDERS: Visit Provider Internal Medicine
DX: Z46.1 Encounter for fitting and adjustment of hearing aid (principal); H90.3 Sensorineural hearing loss, bilateral
CPT/HCPCS: V5011; V5020; V5160; V5261

== ENCOUNTER 2025-08-05 11:00 | Outpatient (REF) | payer MEDICAID, SELFPAY | END 2025-08-05 11:01 | disposition home or self-care (01) | LOC: HO.HAP 11:00 | PROVIDERS: Visit Provider Internal Medicine | DX: Z13.89 Encounter for screening for other disorder (principal) ==